=== PATIENT | female | born 1980 | race Caucasian/White ===

== ENCOUNTER 2019-11-22 20:38 | Inpatient (IN) | payer OTHER, SELFPAY ==
[2019-11-22] VITALS (9 sets, daily range): BP systolic 91–185; BP diastolic 51–112; PULSE 60–84; RESP 20–28; TEMP 36.4; O2SAT 89–100
--- NOTE | ~2019-11-22 | XR_ITS ---
EXAMINATION: XR chest ET placement EXAM DATE: 11/22/2019 21:15 INDICATION: Cardiac arrest. TECHNIQUE: Portable AP frontal chest x-ray was obtained. There is no prior study for comparison. FINDINGS: Endotracheal tube tip is 5-6 centimeters above the dc (ideal range is between 2 to 5 cm ). This could be safely advanced 1-2 cm. There is a nasogastric tube seen with tip collimated off th e study, but below the left hemidiaphragm. There is moderate-sized right-sided pneumothorax. There is also some contralateral mediastinal shift, and the right hemidiaphragm appears mildly flattened indicating that this could be a tension pneumot horax. I discussed this finding with Dr. Gates at 11/22/2019 21:17 TESTING DIRECTOR. No confluent consolidation or pleural effusion. The cardiomediastinal silhouette is prominent but mag nified on this AP technique. IMPRESSION: 1. Moderate sized right-sided tension pneumothorax. 2. Endotracheal tube could be safely advanced 1-2 cm. Reviewed, dictated and finalized at location A. ING DIRECTOR
--- NOTE | ~2019-11-22 | XR_ITS ---
XR chest 1V portable DATE: 11/24/2019 06:07 INDICATION: Decreased breath sounds, intubation. TECHNIQUE: Portable AP chest on 11/24/2019 at 0535 hours COMPARISON: 11/23/2019 portable AP chest at 0124 hours FINDINGS: ET tube in satisfactory position or 0.7 cm above dc. NG tube in stomach, proximal port approximately 4 cm distal to the diaphragmatic hiatus. Left internal jugular central venous catheter tip overlies the proximal superior vena cava. Right thoracostomy tube is present. No apparent pneumothorax. Diminished subcutaneous emphysema of th e right chest wall. Prominent band of discoid atelectasis again noted overlying the right mid lung along the minor fissur e, consistent with some persistent right upper lobe atelectasis. IMPRESSION: Right thoracostomy tube; no pneumothorax, diminished subcutaneous emphysema right chest w all Persistent prominent band of discoid atelectasis in the right midlung field, right upper lobe Reviewed, dictated and finalized at location A. AR PACKER IMPRESSION: Right thoracostomy tube; no pneumothorax, diminished subcutaneous e mphysema right chest wall Persistent prominent band of discoid atelectasis in the right midlung field, ri ght upper lobe
--- NOTE | ~2019-11-22 | XR_ITS ---
XR chest ET placement 11/25/2019 19:11 Indication: Endotracheal tube recheck Procedure: AP portable chest Comparison: Comparison to multiple prior studies sequentially, with oldest reviewed study dated 11/23. Findings: Endotracheal tube tip 8 cm above the dc near the thoracic inlet. Central line tip in th e SVC. NG tube in the stomach. Right apical chest tube position unchanged. No definite pneumothorax. No acute osseous abnormality. Left basilar atelectasis. Impression: 1: Left basilar atelectasis. 2: Endotracheal tube tip 8 cm above the dc near the thoracic inlet. Reviewed, dictated and finalized at location A. DEVELOPER Impression: 1: Left basilar atelectasis. 2: Endotracheal tube tip 8 cm above the dc near the thoracic inlet.
--- NOTE | ~2019-11-22 | XR_ITS ---
EXAMINATION: XR chest 1V portable INDICATION: Respiratory failure TECHNIQUE: Portable AP chest at 0514 hours COMPARISON: 11/26/2019 FINDINGS: The endotracheal tube ends approximately 5.7 cm above the dc. The nasogastric tube is f ollowed as far as the stomach. Its tip is beyond the inferior margin of the radiograph. A left digital marketing intern al jugular central venous catheter ends with its tip overlying the proximal superior vena cava. A rig ht chest tube is in place. A tiny right pneumothorax persists but has decreased in size. The lungs ar e free of acute opacities. There is no pleural effusion. The cardiomediastinal silhouette is normal. IMPRESSION: 1. Tiny right pneumothorax with decrease in size. Reviewed, dictated and finalized at location A. INE MECHANIC
--- NOTE | ~2019-11-22 | XR_ITS ---
XR chest 1V portable DATE: 11/28/2019 05:36 INDICATION: Mechanical ventilation TECHNIQUE: Portable AP chest on 11/28/2019 at 0511 hours COMPARISON: 11/27/2019 portable AP chest at 0514 hours FINDINGS: ET tube tip is 6.2 cm above dc; ideal range is 2-5 cm. NG tube in stomach. Left internal jugular central venous catheter tip overlies the left brachiocephalic vein near the sup erior vena cava. Right thoracostomy tube. No pneumothorax is evident. There is mild infiltrate/atelectasis in the left lower lobe with mild elevation of the left leaf of t he diaphragm. IMPRESSION: ET tube 6.2 cm above dc; ideal range is 2.5 cm Right thoracostomy tube; no apparent pneumothorax Left lower lobe infiltrate/atelectasis Reviewed, dictated and finalized at location A. RIALS PLANNER
--- NOTE | ~2019-11-22 | CT_ITS ---
EXAMINATION: CT brain wo con EXAM DATE: 11/22/2019 22:13 INDICATION: Cardiac arrest. Bone cancer. TECHNIQUE: Spiral CT of the head was performed without contrast. Axial, coronal and sagittal images were reviewed. The dose-length product (DLP) for this examination was 681.00 mGy-cm. The exposure w as tailored according to patient size, and iterative reconstruction (ASIR) was used as additional dos e reduction technique. There is no prior study for comparison. FINDINGS: Beam hardening and motion artifact; patient was scanned twice. There is no acute intraparen chymal hemorrhage. No evidence of intraparenchymal brain mass lesion. No evidence of acute infarcti on. There is no mass effect or midline shift. The ventricles are normal in size. There are no extr a-axial collections. There are no acute calvarial fractures. The orbits are unremarkable. Soft tiss ue is unremarkable. Mild ethmoid opacity and small left maxillary mucous retention cyst. IMPRESSION: Limited exam. No acute hemorrhage. If global anoxic injury is a clinical concern, conside r follow-up exam in 6-12 hours. Reviewed, dictated and finalized at location A. CE AUTOMATION CLERK IMPRESSION: Limited exam. No acute hemorrhage. If global anoxic injury is a cli nical concern, consider follow-up exam in 6-12 hours.
--- NOTE | ~2019-11-22 | XR_ITS ---
EXAMINATION: XR chest 1V portable INDICATION: Pneumothorax, decreased breath sounds TECHNIQUE: Portable AP chest at 0537 hours COMPARISON: 11/24/2019 FINDINGS: The endotracheal tube ends approximately 5.2 cm above the dc. The nasogastric tube is f ollowed as far as the stomach. Its tip is beyond the inferior margin of the radiograph. Airspace opac ities of the right midlung zone have nearly completely resolved. A right-sided chest tube is in place . There is a tiny apical pneumothorax. There is a small amount of gas in the right chest wall. The ca rdiomediastinal silhouette is normal. No pleural effusion is identified. IMPRESSION: 1. Near complete resolution of airspace opacities in the right midlung zone, consistent with atelecta sis. 2. Right chest tube in place tiny apical pneumothorax. Reviewed, dictated and finalized at location A. ARY GRADE TEACHER IMPRESSION: 1. Near complete resolution of airspace opacities in the right midlung zone, co nsistent with atelectasis. 2. Right chest tube in place tiny apical pneumothorax.
--- NOTE | ~2019-11-22 | XR_ITS ---
XR chest 1V portable DATE: 11/23/2019 01:26 INDICATION: Decreased breath sounds TECHNIQUE: Portable AP chest on 11/23/2019 at 0124 hours COMPARISON: Portable AP chest on 11/23/2019 at 0010 hours FINDINGS: ET tube in satisfactory position 3 cm above dc. NG tube in stomach. Left internal jugul ar central venous catheter tip overlies the proximal superior vena cava. Again noted is right upper lobe prominent band of discoid atelectasis along the minor fissure, with m ild right upper lobe infiltrate and atelectasis. There is subcutaneous emphysema along the right ches t wall. No pneumothorax is evident. IMPRESSION: No significant change since 0010 hours Reviewed, dictated and finalized at location A. IRONER
--- NOTE | ~2019-11-22 | US_ITS ---
US venous doppler [facility] DATE: 11/23/2019 09:47 INDICATION: Right [id number] amputation. Cardiac arrest. TECHNIQUE: Real-time and color flow imaging and Doppler analysis of the veins of the lower extremitie s COMPARISON: None FINDINGS: The greater saphenous veins are patent. There is spontaneous and phasic flow and normal aug mentation and color flow signal and normal compression of the right common femoral and femoral veins and the deep veins throughout the left lower extremity. IMPRESSION: Right above-knee amputation No evidence of deep venous thrombosis of the lower extremities Reviewed, dictated and finalized at Location A. Reviewed, dictated and finalized at location A. AROO
--- NOTE | ~2019-11-22 | XR_ITS ---
XR chest port-a-cath/central DATE: 11/23/2019 00:15 INDICATION: Decreased breath sounds TECHNIQUE: Portable AP chest on 11/23/2019 at 0010 hours COMPARISON: Portable AP chest on 11/22/2019 at 2151 hours FINDINGS: There is a prominent band of discoid atelectasis at the upper aspect of the minor fissure, with mild right upper lobe infiltrate and loss of volume. The remaining lung bejarano are essentially c lear. Right thoracostomy tube. There is subcutaneous emphysema along the right chest wall. No pneumothorax is evident. No pleural effusion. Heart size appears normal. There is mild aortic unfolding. ET tube in satisfactory position approximately 4.8 cm above dc. NG tube in stomach with the proxi mal port approximately 1.5 cm distal to the diaphragmatic hiatus. Left internal jugular central venous catheter tip overlies the very proximal superior vena cava. IMPRESSION: Right thoracostomy tube; subcutaneous emphysema right chest wall, no apparent pneumothora x Mild right upper lobe volume loss, atelectasis, infiltrate, mildly improved since 11/22/2019 Reviewed, dictated and finalized at Location A. Reviewed, dictated and finalized at location A. BAG MACHINE TENDER IMPRESSION: Right thoracostomy tube; subcutaneous emphysema right chest wall, n o apparent pneumothorax Mild right upper lobe volume loss, atelectasis, infiltrate, mildly improved sin ce 11/22/2019
--- NOTE | ~2019-11-22 | XR_ITS ---
XR abdomen NG/feed tube rechec INDICATION: Evaluate NG tube position. TECHNIQUE: Limited KUB perform for evaluating NG tube . COMPARISON: 11/22/2019 FINDINGS: NG tube tip in the stomach, side port near the GE junction. Visualized bowel gas pattern i s unremarkable. IMPRESSION: 1: NG tube tip in the stomach, side port near the GE junction. Reviewed, dictated and finalized at location A. ITIONING ROOM WORKER
--- NOTE | ~2019-11-22 | CT_ITS ---
EXAMINATION: CT brain wo con DATE: 11/25/2019 09:13 INDICATION: Anoxic brain injury. TECHNIQUE: Computed tomography (CT) of the head was performed without intravenous contrast. The mA wa s adjusted according to patient size. Iterative reconstruction technique was employed. The dose-lengt h product was 681.00 mGy-cm. COMPARISON: Head CT 11/22/2019 FINDINGS: There is mild motion artifact. There is no intracranial hemorrhage or abnormal intracranial mass lesion. The bilateral basal ganglia are hypodense. The ventricles are normal in size. There is mucosal thickening in the paranasal sinuses. The orbits are normal. The mastoid air cells are hypopla stic. There is a right mastoid effusion. IMPRESSION: 1. Hypodense bilateral basal ganglia suspicious for anoxic brain injury. Reviewed, dictated and finalized at location A. T OFFICE SPECIALIST
--- NOTE | ~2019-11-22 | XR_ITS ---
EXAMINATION: XR chest ET placement INDICATION: Intubation TECHNIQUE: Portable AP chest at 0235 hours COMPARISON: 11/25/2019 FINDINGS: The endotracheal tube ends approximately 4.5 cm above the dc. The nasogastric tube is f ollowed as far as the stomach. Its tip is beyond the inferior margin of the radiograph. A right inter nal jugular central venous catheter ends with its tip at the proximal superior vena cava. A right yelena st tube is in position. There is a small right pneumothorax. The lungs are clear. The cardiomediastin al silhouette is normal. IMPRESSION: 1. Endotracheal tube approximately 4.5 cm above the dc. 2. Right chest tube in place with small right pneumothorax. Reviewed, dictated and finalized at location A. OMA DENTAL ASSISTANT
--- NOTE | ~2019-11-22 | XR_ITS ---
EXAMINATION: XR chest-chest tube insert/pos EXAM DATE: 11/22/2019 21:56 INDICATION: Right-sided chest tube insertion. Cardiac arrest. TECHNIQUE: Portable AP frontal chest x-ray was obtained. Comparison is made to prior examination from 11/22/2019. FINDINGS: Endotracheal tube tip is 3-4 centimeters above the dc (ideal range is between 2 to 5 cm ). Feeding tube is in position. There is a right-sided chest tube with tip at the right lung apex, s ignificant interval decrease in size of the right-sided pneumothorax compared to prior study, and als o more normal position of the right hemidiaphragm and contralateral mediastinal shift. Left lung is c lear. There is some right upper lobe atelectasis. IMPRESSION: 1. Tubes in position. 2. Small to moderate right pneumothorax with improvement. 3. Right upper lobe atelectasis. Reviewed, dictated and finalized at location A. RTER
--- NOTE | ~2019-11-22 | XR_ITS ---
EXAMINATION: XR abdomen NG/feed tube insert EXAM DATE: 11/22/2019 21:56 INDICATION: Orogastric tube placement. TECHNIQUE: Frontal projection(s) of the abdomen for interpretation. There is no prior study for willi page. FINDINGS: Feeding tube is in position. Right-sided pneumothorax with interval decrease in size incom pletely imaged. Right hemidiaphragm appears to be equal to the contralateral side on this exam. Upper abdominal bowel gas pattern is unremarkable. IMPRESSION: Feeding tube in position. Reviewed, dictated and finalized at location A. C COMPOSER IMPRESSION: Feeding tube in position.
--- NOTE | 2019-11-22 20:43 | ED.CPR ---
HPI - CPR General Chief Complaint: Cardiac Arrest/CPR Stated Complaint: UNRESPONISIVE Time Seen by Provider: 11/22/19 20:43 Source: EMS Mode of arrival: EMS Limitations: clinical condition History of Present Illness HPI narrative: The pt is a 38 y/o female who presents to the ED, via EMS, c/o cardiac arrest. 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 Upon arrival to the scene, pt was found to be unresponsive. They noticed the pt had dilated pupils, and they administered Narcan without any change in state. EMS then found pt was in Vfib. Pt received 3 shocks that dispensed 200 joules with no change in rhythm. EMS states that they administered 3 rounds of Epinephrine, four doses of Narcan, as well as Amiodarone and 2 rounds of magnesium. Pt arrived with incubation and PHILLIP chest compression present. Pt has right BKA present. EMS also notes that the pt's emergency contact relayed that she is supposed to wear a LifeVest defibrillator. HPI is limited due to the pt's clinical condition. complaint: other (Cardiac arrest) Place: other (Outside apartment complex) Shock advised: Yes Number of shocks delivered: 3 Initial findings in the field: unresponsive and VTACH/VFIB Associated symptoms: other (Unobtainable) Treatments prior to arrival: intubation, chest compressions, defibrillated shocks # (3), epinephrine mgs #, amiodarone, magnesium and other (Narcan) Review of Systems Review of Systems: ROS unobtainable: other (Due to clinical condition) [facility] Past Medical History Medical History (Updated 11/23/19 @ 00:58 by Gracy Myers DO) Arrhythmia Unknown type; pt is supposed to wear LifeVest defibrillator. 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 Comments PMHx is limited due to the pt's clinical condition. Exam Const: General: ill appearing Nutritional Appearance: average body habitus Orientation/consciousness: patient obtunded Limitations: other limitations (patient in cardiac arrest, unresponsive) HENMT: Head: normocephalic and atraumatic Mouth: Yes Normal oral and palatal mucosa present and Yes lip normal Eyes: Sclera: sclerae normal Pupils: Pupils not reactive Chest: Chest palpation & inspection: normal inspection of the chest Resp: Auscultation: diminished lung sounds on the right Other: PAtient intubated being bagged Cardio: Other: able to obtain femoral pulse on ROSC, ; on rOSC patient with normal rate, and rhythm GI: Auscultation: Hypoactive bowel sounds present Urinary Catheter: Urinary Catheter: patent and draining Skin: General skin exam: normal color Rashes: no rashes Neuro: General: patient obtunded and Unable to assess gait Extrem: General: no pedal edema Other: right AKA with prosthetic Course Reevaluation(s) Reevaluation #1: Patient appears to be responsive to pain. On repeat xray for CVL placement , chest tube still in place but may have come out. I reassessed to make sure tube in further and secured. PAtient still with 100% oxygen saturation. Date: 11/23/19 Time: 00:30 Consultations Consultation #1: Discussed case with Dr. Cortes, states he will review her chart and call back. Date: 11/22/19 Time: 20:58 Consultation #2: Discussed case with Dr. Cortes, states he is discussing patient history with her electrical checkout mechanic. Notes that pt likely has cardiomyopathy. Date: 11/22/19 Time: 21:53 Consultation #3: Discussed case with Dr. Cortes,who spoke with the pt's electrical checkout mechanic at [facility]. States pt had a clean catheterization in 2018 with an ejection fraction of 20%. States pt had no STEMI, and that she did not follow up
--- NOTE | 2019-11-22 20:53 | ECG_ITS ---
Measurements Intervals [place] Rate: 61 P: NV: 0 QRS: 252 QRSD: 170 T: 0 QT: 384 QTc: 389 Interpretive Statements JUNCTIONAL RHYTHM ATRIAL PREMATURE COMPLEX EXTREME RIGHT AXIS DEVIATION RIGHT BUNDLE BRANCH BLOCK SEPTAL ST ELEVATION MYOCARDIAL INFARCT- ACUTE ABNORMAL ECG Electronically Signed On 11-23-2019 7:55:40 PRODUCTION FLOATER by Karsten Flores D.O.
[2019-11-22] MEDS: LACTATED RINGERS 1,000 ML 999 ML IV CONT (21:03)
[2019-11-22 21:10] LABS: Basophils Absolute Auto 0.1 K/mm3 (0.0-0.1); Basophils Percent Auto 0.9 % (0.2-1.2); Eosinophils Absolute Auto 0.2 K/mm3 (0-0.3); Hemoglobin 13.6 g/dL (12.0-15.0); Immature Granulocyte Absolute 0.45 K/mm3 (0.00-0.031); Immature Granulocyte Percent A 5.9 % (0-0.5); Lymphocytes Absolute Auto 5.19 K/mm3 (0.9-3.2); Lymphocytes Percent Auto 68.6 % (18.3-44.2); Mean Corpuscular HGB Conc 29.6 g/dl (32-36); Mean Corpuscular Hemoglobin 28.1 pg (26-34); Mean Platelet Volume 10.7 fl (7.4-10.4); Monocytes Absolute Auto 0.4 K/mm3 (0.1-0.6); Neutrophils Absolute Auto 1.3 K/mm3 (1.3-6.7); Neutrophils Percent Auto 16.6 % (45.5-73.1); Nucleated Red Blood Cells Perc 0.4 % (0.0-0.2); Platelet Count Result 265 k/mm3 (150-375); Red Blood Count 4.84 M/mm3 (4.2-5.4); Red Cell Distribution Width 12.7 % (11.5-14.5); White Blood Count 7.6 K/mm3 (4.5-10.0)
--- NOTE | 2019-11-22 21:13 | ECG_ITS ---
Measurements Intervals [place] Rate: 57 P: CO: 0 QRS: 263 QRSD: 173 T: 74 QT: 427 QTc: 419 Interpretive Statements SINUS OR ECTOPIC ATRIAL BRADYCARDIA RIGHT BUNDLE BRANCH BLOCK LEFT POSTERIOR FASCICULAR BLOCK CANNOT RULE OUT SEPTAL INFARCT, AGE INDETERMINATE BASELINE WANDER- I, II, III, AVR, AVL, V2-V6 ABNORMAL ECG Electronically Signed On 11-25-2019 12:52:37 DIE MOUNTER by Karsten Flores D.O.
[2019-11-22 21:22] LABS: INR 1.1; Partial Thromboplastin Time 26.5 SECONDS (22.3-36.8); Prothrombin Time 13.9 Seconds (11.1-14.7)
[2019-11-22 21:35] LABS: NT Pro B Type Natriuretic Pept 1680 PG/ML (5-100); Troponin I 0.022 ng/mL (0.000-0.034)
--- NOTE | 2019-11-22 21:36 | PC.NURSE ---
Addendum entered by Sona Rene RN 11/22/19 23:04: THE BELOW NOTE WAS ENTERED PER Sofia MANLEY RN. Original Note: SPOKE WITH PT SISTER VEENA WALDRON- PT SISTER WHO IS CURRENTLY IN THE ED WAITING ROOM SHE STATES SHE WAS CONTACTED BY THE PATIENTS CHILDRENS FAMILY MEMBER THAT THE PATIENT WAS HERE. SHE RECENTLY SPOKE WITH THE PATIENT WED & TODAY AND STATED THE PATIENT HAD NO RECENT COMPLAINTS OR ILLNESS'S SHE WAS AWARE OF. SHE REPORTS PATIENT HAS PMH OF BONE CANCER AT THE AGE OF 16. , HX OF LEG AMPUTATION, TWINS DELIVERED APPROX 3 YRS AGO & AFTER THAT SHE HAD HEART COMPLICATIONS AND A WEAK HEART . SHE REPORTS THE PATIENT HAD TO WEAR A MONITOR OF WHICH SHE IS UNSURE WHAT IT WAS FOR .
[2019-11-22 21:41] LABS: Alanine Aminotransferase 95 U/L (4-35); Albumin Level 4.1 g/dL (3.5-5.1); Alkaline Phosphatase 49 U/L (38-126); Aspartate Amino Transferase 107 U/L (14-36); Bilirubin,Total 0.6 mg/dL (0.2-1.3); Blood Urea Nitrogen 5 mg/dL (7-17); Calcium 8.7 mg/dL (8.4-10.2); Carbon Dioxide 17 mmol/L (22-30); Chloride 96 mmol/L (98-107); Estimated Glomerular Filt Rate > 60; Glucose 335 mg/dL (65-105); Magnesium 4.5 mg/dL (1.6-2.3); Potassium 2.3 mmol/L (3.4-5.0); Sodium 139 mmol/L (137-145)
[2019-11-22 21:44] LABS: Alveolar/Arterial O2 Gradient 395.8 mmHg; Base Excess ABG -14.3 mEq/l (+/-2.0); Carboxyhemoglobin 2.2 % THb (0-2.0); HCO3 ABG 13.1 mEq/l (22.0-26.0); Methemoglobin ABG 0.3 %THb (0-1.5); Oxygen Content ABG 17.3 %vol (16.0-22.0); Oxygen Saturation ABG 99.5 % (95.0-100.0); Oxyhemoglobin 96.1 % THb (90.0-100.0); PCO2 ABG 36.1 mmHg (35.0-45.0); PO2 ABG 281.1 mmHg (80.0-100.0); Total Hemoglobin 12.3 g/dL (12.0-18.0); pH ABG 7.178 (7.350-7.450)
[2019-11-22 21:45] LABS: Device AMBU BAG; Fractional Inspired Oxygen 100 %; Modified Allen's Test Pass; PO2 FiO2 Ratio Arterial Blood 2.81 %; Reduced Hemoglobin 1.4 %THb (0-5.0); Site Drawn RIGHT RADIAL
[2019-11-22 22:26] LABS: Amphetamine Screen Urine Negative (Negative); Barbiturate Screen Urine Negative (Negative); Benzodiazepines Screen Urine Negative (Negative); Cannabinoid Screen Urine Negative (Negative); Cocaine Screen Urine Negative (Negative); Methadone Screen Urine Negative (Negative); Opiate Screen Urine Negative (Negative); Phencyclidine Screen Urine Negative (Negative)
[2019-11-22] MEDS: AMIODARONE 360 MG/D5W 200 ML 360 MG/200 ML BAG 33.3 MG IV CONT (22:40)
[2019-11-22 23:08] LABS: Ammonia 57 umol/L (9-30)
[2019-11-22] MEDS: MIDAZOLAM HCL 2 MG/2 ML VIAL IV PUSH (23:30)
[2019-11-23] VITALS (41 sets, daily range): BP systolic 87–196; BP diastolic 55–136; PULSE 49–116; RESP 14–32; TEMP 31.9–38.3; O2SAT 96–100; BMI 30.8
[2019-11-23] MEDS: PROPOFOL IV EMULSION 100 ML 3.1 MG IV CONT (00:20)
--- NOTE | 2019-11-23 00:56 | PM.IMHP ---
H&P: HPI History of Present Illness Chief complaint: Cardiac arrest Narrative: Sabi Mena is a 38 year old female with a past medical history of cardiac arrhythmia, cardiomyopathy, hypertension and hyperlipidemia who presented to the ER via EMS after being found down and cardiac arrest. 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 EMS reported that the patient was found unresponsive with dilated pupils. They administered Narcan without any change in her stay. The patient was then noted to be in ventricular fibrillation and received 3 shocks at 200 joules. EMS administered 3 rounds of epinephrine, 2 rounds of magnesium, amiodarone and 4 doses of Narcan. The patient arrived with a Baldomero chest compression device present. Patient had return of circulation in the ER. She was intubated and had a right chest tube placed due to a right tension pneumothorax. A left IJ with was placed by ER staff. Patient was noted to be hypokalemic and received 40 mEq potassium chloride IV. When the patient arrived to the ICU she had a high respiratory rate and was difficult to ventilate. Respiratory therapy was unable to pass the rescue catheterization. But the ET tube obstruction cleared with normal saline and aggressive bagging. Repeat attempts at suctioning airway clear the obstruction and the patient was easier to ventilate. A stat chest x-ray was ordered to ensure that the patient's chest tube was stable as there was some leaking given the patient's tachypnea and discomfort. Patient's sedation was increased and overall the patient's condition improved. According to the patient's sister the patient had an hospitalization in November of 2017 with an ejection fraction of 20%. She had a cardiac catheterization at that time which demonstrated normal coronaries. It was thought that the patient may have a cardiomyopathy. The patient wore a LifeVest for some time after her hospitalization in 2018. The patient told her family members that she did not require the life vest anymore after a follow-up appointment. But the family thinks that the patient may not have been completely forthcoming in that statement.The family states that the patient has been up beat and in good spirits. They report that she does tend to get short of breath with ambulation. They attribute this to the weight of her prosthetic. They report that her right lower extremity is always swollen. 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 Review of Systems Review of Systems: ROS unobtainable: unobtainable due to mental condition [facility] Past Medical History Medical History (Updated 11/23/19 @ 03:08 by Gracy Myers DO) Arrhythmia Unknown type; pt is supposed to wear LifeVest defibrillator. Dyslipidemia Essential hypertension Surgical History Surgical History (Updated 11/23/19 @ 02:36 by Gracy Myers DO) History of above-knee amputation of right lower extremity Due to bone cancer at the age of 16 Family History Family History (Updated 11/23/19 @ 02:39 by Gracy Myers DO) Father , Paternal family history unknown No problems noted. Mother No known health problems Grandparent Ovarian cancer Cervical cancer Social History Social History (Updated 11/23/19 @ 02:58 by Gracy Myers DO) Social History: The patient has smoked on and off since she was 14 years old. For the most part she has smoked a pack of cigarettes per day for approximately 19 years. She had quit smoking for 2 and 3 years at a time on 2 other occasions. She used to smoke marijuana but the family does not think she has smoked marijuana recently. She only drinks alcohol on occasion and in moderation. She is engaged to be . She has 3 children; the oldest is 18 the younger children are 3
--- NOTE | 2019-11-23 01:49 | WPDPROCEDUR ---
Procedures Arterial Line: Arterial Line Date: 11/23/19 Arterial Line Time: 01:35 Discussed with the patient/family/POA, the non-emergent placement of an arterial catheter, including its clinical necessity/indication and associated potential risks and complications: Yes Patient/family/POA and/or understand(s) and acknowledge(s) the need to proceed with the arterial catheter insertion as an important element of the patient's clinical management: Yes Perfomed Emergently - Given emergent patient conditions, temporal constraints may have precluded informed consent: No A pre-procedural Time-Out was completed immediately before starting the procedure and confirmed: Patient Identification, Site, Procedure, Patient Position and the Availability of Requisite Equipment: Yes 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
--- NOTE | 2019-11-23 01:52 | ECHO_ITS ---
Patient Info Name: Sabi Mena Age: 38 years : 1980 Gender: Female Ht: 68 in Wt: 195 lbs BSA: 2.08 m2 HR: 55 bpm BP: 139 / 76 mmHg Heart Rhythm: Sinus Rhythm Technical Quality: Good Exam Date: 11/23/2019 12:43 PM Exam Location: [facility] Pulmonary Patient Status: Inpatient Admit Date: 11/22/2019 Staff Ordering Physician: Gracy Myers DO Water Meter Installer: Merissa Nuñez RDCS Attending Provider: Adrián Lane MD Referring Physician: Louis RODRIGUEZ; Exam Type: CA echo doppler color flow Study Info Complete two-dimensional, color flow and Doppler transthoracic echocardiogram is performed. Summary 1. Global hypokinesis of the left ventricle. 2. The left ventricular diastolic function is grade I diastolic dysfunction. 3. There is mildly increased left ventricular wall thickness. 4. Left ventricular systolic function is severely reduced, estimated at 20-25%. 5. Left ventricular chamber dimension is severely enlarged. 6. Left atrial chamber dimension is mildly enlarged. 7. There is mild mitral valve regurgitation. 8. There is mild tricuspid valve regurgitation. 9. There is mild pulmonic regurgitation. Left Ventricle Left ventricular chamber dimension is severely enlarged. Left ventricular systolic function is severely reduced, estimated at 20-25%. There is mildly increased left ventricular wall thickness. The left ventricular diastolic function is grade I diastolic dysfunction. Global hypokinesis of the left ventricle. Right Ventricle Right ventricular chamber dimension is normal. Right ventricular systolic function is normal. Left Atria Left atrial chamber dimension is mildly enlarged. Right Atria Right atrial chamber dimension is normal. Atrial Septum Intact interatrial septum visualized by color flow imaging. Aortic Valve The aortic valve is trileaflet. There is mild aortic valve sclerosis. There is no aortic valve stenosis. There is trace aortic valve regurgitation. Pulmonic Valve The pulmonic valve is normal. There is no pulmonic valve stenosis. There is mild pulmonic regurgitation. Mitral Valve The mitral valve has normal leaflets. There is no mitral valve stenosis. There is mild mitral valve regurgitation. Tricuspid Valve The tricuspid valve leaflets are normal. There is no significant tricuspid valve stenosis. There is mild tricuspid valve regurgitation. Pericardium/Pleural The pericardium appears normal. There is no pericardial effusion. Aorta The aortic root size at the sinus of Valsalva is normal. Left Ventricular Outflow Tract Name Value Normal LVOT 2D LVOT Diameter 2.4 cm LVOT Doppler LVOT Peak Velocity 69 cm/s LVOT Peak Gradient 2 mmHg LVOT Mean Gradient 1 mmHg LVOT VTI 15 cm LVOT Stroke Volume 65 ml LVOT CO 3.3 l/min LVOT CI 1.6 l/min/m2 Pulmonic Valve
[2019-11-23 02:35] LABS: Basophils Percent Auto 0.2 % (0.2-1.2); Eosinophils Percent Auto 0.1 % (0-4.4); Hematocrit 41.4 % (37.0-47.0); Hemoglobin 13.5 g/dL (12.0-15.0); Immature Granulocyte Absolute 0.15 K/mm3 (0.00-0.031); Immature Granulocyte Percent A 0.7 % (0-0.5); Lymphocytes Absolute Auto 0.61 K/mm3 (0.9-3.2); Lymphocytes Percent Auto 2.8 % (18.3-44.2); Mean Corpuscular HGB Conc 32.6 g/dl (32-36); Mean Corpuscular Hemoglobin 28.7 pg (26-34); Mean Corpuscular Volume 87.9 fl (80-100); Mean Platelet Volume 9.9 fl (7.4-10.4); Monocytes Percent Auto 4.6 % (2.6-8.5); Neutrophils Absolute Auto 19.7 K/mm3 (1.3-6.7); Neutrophils Percent Auto 91.6 % (45.5-73.1); Platelet Count Result 254 k/mm3 (150-375); Red Blood Count 4.71 M/mm3 (4.2-5.4); Red Cell Distribution Width 12.8 % (11.5-14.5); White Blood Count 21.5 K/mm3 (4.5-10.0)
[2019-11-23 02:47] LABS: Creatine Kinase 1479 U/L (30-135); Magnesium 2.3 mg/dL (1.6-2.3)
[2019-11-23 02:50] LABS: Alanine Aminotransferase 188 U/L (4-35); Albumin Level 4.2 g/dL (3.5-5.1); Alkaline Phosphatase 64 U/L (38-126); Aspartate Amino Transferase 355 U/L (14-36); Blood Urea Nitrogen 11 mg/dL (7-17); Calcium 7.8 mg/dL (8.4-10.2); Carbon Dioxide 25 mmol/L (22-30); Chloride 102 mmol/L (98-107); Estimated Glomerular Filt Rate > 60; Glucose 166 mg/dL (65-105); Potassium 3.4 mmol/L (3.4-5.0); Sodium 137 mmol/L (137-145)
[2019-11-23] MEDS: AMIODARONE 360 MG/D5W 200 ML 360 MG/200 ML BAG 33.3 MG IV CONT ×3 (03:00→15:12)
[2019-11-23 03:11] LABS: Alveolar/Arterial O2 Gradient 86.4 mmHg; Base Excess ABG -3.9 mEq/l (+/-2.0); Carboxyhemoglobin 0.1 % THb (0-2.0); Fractional Inspired Oxygen 50 %; HCO3 ABG 21.2 mEq/l (22.0-26.0); Methemoglobin ABG 0.5 %THb (0-1.5); Oxygen Saturation ABG 99.4 % (95.0-100.0); PCO2 ABG 38.9 mmHg (35.0-45.0); PO2 FiO2 Ratio Arterial Blood 4.36 %; Reduced Hemoglobin 1.4 %THb (0-5.0); Total Hemoglobin 14.2 g/dL (12.0-18.0); pH ABG 7.354 (7.350-7.450)
[2019-11-23 03:12] LABS: Arterial Blood Gas PEEP 5 cmH2O; Arterial Blood Gas Tidal Volume 400 ml; Arterial Blood Gas Vent Mode CMV; Arterial Blood Gas Ventilator rate 14 /MIN; Device VENTILATOR; Site Drawn ARTLINE
[2019-11-23] MEDS: PROPOFOL IV EMULSION 100 ML 21.5 MG IV CONT (04:50)
[2019-11-23 05:26] LABS: Hematocrit 42.3 % (37.0-47.0); Hemoglobin 13.8 g/dL (12.0-15.0); Mean Corpuscular HGB Conc 32.6 g/dl (32-36); Mean Corpuscular Hemoglobin 28.5 pg (26-34); Mean Corpuscular Volume 87.4 fl (80-100); Mean Platelet Volume 9.8 fl (7.4-10.4); Platelet Count Result 275 k/mm3 (150-375); Red Blood Count 4.84 M/mm3 (4.2-5.4); Red Cell Distribution Width 12.7 % (11.5-14.5); White Blood Count 22.9 K/mm3 (4.5-10.0)
[2019-11-23 05:37] LABS: Lactic Acid 1.7 mmol/L (0.7-2.1)
[2019-11-23 05:38] LABS: Prothrombin Time 13.2 Seconds (11.1-14.7)
[2019-11-23 05:39] LABS: Partial Thromboplastin Time 27.4 SECONDS (22.3-36.8)
[2019-11-23 05:41] LABS: Phosphorus 2.4 mg/dL (2.5-4.5)
[2019-11-23 05:48] LABS: Creatine Kinase 2463 U/L (30-135)
--- NOTE | 2019-11-23 05:56 | ADMGEN ---
This patient, Sabi Mena, was admitted to Intensive Care Unit-7. Patient/family oriented to hospital policies and general routines including ID bracelet, bed and alarms, visiting hours, pain management, procedures, bathroom and other care routines, personal items, smoking policy, room service/diet, and visiting hours. Valuables list has been completed. Information on how to activate the Rapid Response Team has been discussed. Patient/Family are encouraged to report perceived risks to care and to ask questions if they do not understand what they are told or what they should do.
[2019-11-23 06:29] LABS: Hemoglobin A1C 5.2 % (<5.7)
[2019-11-23] MEDS: LACTATED RINGERS 1,000 ML 125 ML IV CONT (06:59)
[2019-11-23 07:09] LABS: Glucose Point of Care 91 (65-105)
[2019-11-23 07:09] LABS: Glucose Point of Care 104 (65-105)
[2019-11-23 07:50] LABS: Glucose Point of Care 121 (65-105)
[2019-11-23] MEDS: FAMOTIDINE 20 MG/2 ML VIAL IV PUSH ×2 (08:14→20:32)
[2019-11-23] MEDS: PROPOFOL IV EMULSION 100 ML 30.8 MG IV CONT ×5 (08:40→23:51)
[2019-11-23 09:18] LABS: Glucose Point of Care 105 (65-105)
[2019-11-23] MEDS: HEPARIN SODIUM 5,000 UNITS/ML VIAL 5000 UNITS SUB-Q ×2 (09:31→16:32)
[2019-11-23] MEDS: CISATRACURIUM BESYLATE 20 MG/10 ML VIAL 15 MG IV PUSH (09:55)
--- NOTE | 2019-11-23 10:00 | ECG_ITS ---
Measurements Intervals [place] Rate: 73 P: 28 CT: 151 QRS: -50 QRSD: 114 T: 259 QT: 418 QTc: 462 Interpretive Statements SINUS RHYTHM LEFT ANTERIOR FASCICULAR BLOCK T WAVE ABNORMALITY IN ANTEROLATERAL LEADS- CONSIDER ISCHEMIA BASELINE ARTIFACT- II, III, V1-V3 ABNORMAL ECG Electronically Signed On 11-23-2019 11:49:45 RUG CLEANER HAND by Karsten Flores D.O.
[2019-11-23 10:36] LABS: Alveolar/Arterial O2 Gradient 70.7 mmHg; Base Excess ABG -2.9 mEq/l (+/-2.0); Device VENTILATOR; Fractional Inspired Oxygen 40 %; HCO3 ABG 22.3 mEq/l (22.0-26.0); Oxygen Content ABG 19.5 %vol (16.0-22.0); Oxygen Saturation ABG 99.1 % (95.0-100.0); Oxyhemoglobin 97.6 % THb (90.0-100.0); PCO2 ABG 40.4 mmHg (35.0-45.0); Site Drawn ARTLINE
[2019-11-23 10:37] LABS: Arterial Blood Gas PEEP 5 cmH2O; Arterial Blood Gas Tidal Volume 400 ml; Arterial Blood Gas Vent Mode CMV; Arterial Blood Gas Ventilator rate 14 /MIN
[2019-11-23 10:54] LABS: Glucose Point of Care 106 (65-105)
--- NOTE | 2019-11-23 11:08 | PM.CNCAR ---
Assessment and Plan Assessment and plan (1) Cardiomyopathy: Qualifiers: Cardiomyopathy type: unspecified Qualified Code(s): I42.9 - Cardiomyopathy, unspecified Code(s): I42.9 - Cardiomyopathy, unspecified Status: Acute Assessment and Plan: Known severe cardiomyopathy. Previous cardiac catheterization reportedly showed no coronary disease. 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 Will request records from [place] regarding previous workup and follow-up. 2D echocardiogram Doppler be ordered. (2) Cardiac arrest: Code(s): I46.9 - Cardiac arrest, cause unspecified Status: Acute Assessment and Plan: Currently undergoing cooling protocol. On amiodarone drip. If meaningful neurological recovery, patient will need ICD if she is agreeable for secondary prevention (3) Elevated LFTs: Code(s): R94.5 - Abnormal results of liver function studies Status: Acute Assessment and Plan: Related to shock liver (4) Hypokalemia: Code(s): E87.6 - Hypokalemia Status: Acute Assessment and Plan: KCl 40 mg IV x1 keep potassium greater than 4. (5) Elevated troponin: Code(s): R79.89 - Other specified abnormal findings of blood chemistry Status: Acute Assessment and Plan: Unlikely related to acute plaque rupture. More likely related to prolonged arrest. Will repeat troponin now and trend till peak. (6) Pneumothorax: Code(s): J93.9 - Pneumothorax, unspecified Status: Acute Assessment and Plan: Management per manager business History of Present Illness History of Present Illness Consult date/time: 11/23/19 11:08 Requesting physician: Mariela Snow MD Consult reason: Other (Cardiac arrest) Reason For Visit: Cardiac arrest Narrative: Date of service: 11/23/2019 History: Patient is a 38-year-old female who has a past history of cardiomyopathy, hypertension hyperlipidemia. She also has a history of osteosarcoma status post chemotherapy and right AKA. 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 It is uncertain if bystander CPR was initiated. EMS was called though an reportedly her pupils were dilated and she was unresponsive. She was given Narcan without any benefit. She was found to be in ventricular fibrillation and was shocked 3 times as well as receiving multiple rounds of epinephrine, magnesium, amiodarone and Narcan. No yazidi of circulating rhythm was obtained at that time. External chest compression device was put on and she to came to the emergency department. She was intubated and chest x-ray showed a right-sided tension pneumothorax and she subsequently underwent a chest tube placement. In the emergency department she did have return of normal circulation. EKG initially showed a junctional rhythm with septal ST elevations and anterolateral and inferior ST segment depressions. Dr. Cortes was called. Upon further investigation the patient did have a known history of severe cardiomyopathy dating back to November of 2017 whenever she is found have an ejection fraction of 20%. Cardiac catheterization was performed at that time showing normal coronary arteries. It is thought that the patient was suffering from cardiomyopathy. Reportedly she did wear a life vest for a period of time but was no longer wearing it. It is uncertain if she is still seeing any line production cook or if her ejection fraction improved. Is also uncertain if she is taking any medications at this point. Reportedly there is no recent episodes are complaints of chest pain, unusual shortness of breath, syncope or presyncope. No paroxysmal nocturnal dyspnea orthopnea. She is currently undergoing cooling protocol. She is currently paralyzed and intubated. Review of Systems Review of Systems: All systems reviewed & are unremarkable except as not
--- NOTE | 2019-11-23 11:52 | WPDCNINT ---
Assessment and Plan Assessment and plan (1) Pneumothorax: Code(s): J93.9 - Pneumothorax, unspecified Status: Acute Assessment and Plan: chest tube has been placed in the emergency department. Still with huge air leak. Unclear if it is secondary to pressure trauma during intubation and initial mechanical ventilation on route to emergency department or if it is a primary event causing all the rest of the complication. Continue chest tube and usual care of the chest tube until she remained intubated. (2) Elevated troponin: Code(s): R79.89 - Other specified abnormal findings of blood chemistry Status: Acute Assessment and Plan: Acute myocardial event versus demand ischemia. at peak. Continue to trend troponin until we achieve Cardiology has evaluated the patient and is not a candidate for any invasive procedure at this time. (3) Cardiomyopathy: Qualifiers: Cardiomyopathy type: unspecified Qualified Code(s): I42.9 - Cardiomyopathy, unspecified Code(s): I42.9 - Cardiomyopathy, unspecified Status: Acute Assessment and Plan: Cardiology recommendation appreciated. Continue amiodarone drip for now. If she has meaningful recovery then she may be candidate for ICD placement. Echocardiogram has been ordered. (4) Elevated LFTs: Code(s): R94.5 - Abnormal results of liver function studies Status: Acute Assessment and Plan: Likely secondary to shock liver. Continue to trend LFTs. If it gets worsened or not improving then may get right upper quadrant ultrasound and hepatitis workup. (5) Hypokalemia: Code(s): E87.6 - Hypokalemia Status: Acute Assessment and Plan: Will continue to replete production. BMP every 6-8 hours to monitor electrolytes as well as renal parameters. (6) Cardiac arrest: Code(s): I46.9 - Cardiac arrest, cause unspecified Status: Acute Assessment and Plan: Continue hypothermia protocol. She is having twitching and myoclonic jerks. Has been started on paralytics. difficult to achieve target temperature. No benzodiazepine and opiates for sedation. She will be continued on propofol until she is paralyzed. Sedatives will be stopped once the Nimbex is withdrawn. She will be revolved after 24 are with target temperature. (7) Acute respiratory failure: Code(s): J96.00 - Acute respiratory failure, unspecified whether with hypoxia or hypercapnia Status: Acute Assessment and Plan: Continue mechanical ventilation with lung protective strategies. She is requiring minimal FiO2 and PEEP. (8) Anoxic brain damage: Code(s): G93.1 - Anoxic brain damage, not elsewhere classified Status: Acute Assessment and Plan: Clinically this seems to have significant anoxic brain damage. Unclear downtime during cardiac arrest. She is having posturing like movements with myoclonic jerks and twitching movements. The CT scan Of the brain once she has revolved. Initial CAT scanned did not show any significant abnormality. Neurological prognostication exam 48-72 hours after she has rewarmed. Neurology consult for neurological prognostication exam after she is rewarmed. She may need EEG at that time as well. (9) Pneumonia: Code(s): J18.9 - Pneumonia, unspecified organism Status: Acute Assessment and Plan: She was febrile today at initial presentation to the ICU. Will start empiric antibiotics with cefepime and vancomycin. Does have bilateral infiltrate /airspace disease on chest x-ray but may not be infectious and may be ARDS instead. Additional Plan Due to a high probability of clinically significant, life threatening deterioration, the patient required my highest level of preparedness to intervene emergently and I personally spent this critical care time directly and personally managing the patient. This critical care time inc
[2019-11-23 11:54] LABS: Blood Urea Nitrogen 10 mg/dL (7-17); Calcium 7.7 mg/dL (8.4-10.2); Carbon Dioxide 22 mmol/L (22-30); Chloride 105 mmol/L (98-107); Estimated CRCL calculation 232 ml/min; Estimated Glomerular Filt Rate > 60; Glucose 222 mg/dL (65-105); Lactic Acid 0.9 mmol/L (0.7-2.1); Potassium 2.8 mmol/L (3.4-5.0); Sodium 137 mmol/L (137-145)
[2019-11-23 12:10] LABS: Creatine Kinase 2683 U/L (30-135)
--- NOTE | 2019-11-23 12:23 | PC.NURSE ---
MD Evans made aware of excessive urine output
[2019-11-23] MEDS: KCL 20 MEQ/LR 1,000 ML 100 ML IV CONT ×2 (13:31→23:08)
--- NOTE | 2019-11-23 13:49 | PM.IMPN ---
Progress Note: A&P Assessment and Plan (1) Cardiac arrest: Code(s): I46.9 - Cardiac arrest, cause unspecified Status: Acute Assessment and Plan: Patient sustained an [id number] VFib cardiac arrest with unknown down time. She has been admitted to the ICU. She is paralyzed and on cooling protocol. Amiodarone started. Initial CT of the brain showing no abnormalities. Patient however clinically appears to have suffered an anoxic brain injury. Complete including protocol with plans repeat brain CT post protocol. Discussed with manager rn. Appreciate manager rn input. (2) Hypokalemia: Code(s): E87.6 - Hypokalemia Status: Acute Assessment and Plan: Potassium was 2.3 on admission. One would suspect this to be higher due to the acidosis. Hypokalemia could have triggered the VFib arrest. Continue to monitor potassium. Continue replacement to normal values. Mag level normal. (3) Anoxic brain damage: Code(s): G93.1 - Anoxic brain damage, not elsewhere classified Status: Acute Assessment and Plan: As above. [place] for anoxic brain injury given the physical findings. Will see how she does with the cooling protocol. Family has been made aware by the manager rn about the severity of the patient's illness. (4) Cardiomyopathy: Qualifiers: Cardiomyopathy type: unspecified Qualified Code(s): I42.9 - Cardiomyopathy, unspecified Code(s): I42.9 - Cardiomyopathy, unspecified Status: Acute Assessment and Plan: Patient has a history nonischemic cardiomyopathy. Last EF was 20% by report. She presumably had a normal left heart catheterization in 2018. Echo has been completed but the results are pending. Cardiology following. Appreciate their input. Discussed with product safety coordinator. (5) Hyperammonemia: Code(s): E72.20 - Disorder of urea cycle metabolism, unspecified Status: Acute Assessment and Plan: Ammonia level 57. Probably related to the shock. Will continue to monitor. (6) Pneumothorax: Qualifiers: Pneumothorax type: traumatic Encounter type: initial encounter Qualified Code(s): S27.0XXA - Traumatic pneumothorax, initial encounter Code(s): J93.9 - Pneumothorax, unspecified Status: Acute Assessment and Plan: Tension PTX probably related to the CPR performed in the field. Right sided Chest Tube placed. Lung has re-expanded and shift has resolved. CXR reviewed personally. (7) Acute respiratory failure: Qualifiers: Respiratory failure complication: hypoxia Qualified Code(s): J96.01 - Acute respiratory failure with hypoxia Code(s): J96.00 - Acute respiratory failure, unspecified whether with hypoxia or hypercapnia Status: Acute Assessment and Plan: Acute repiratory fialure requiring intubation. ABG has improved with normal pH. Patient has had a normal pCO2 to suggest the acidosis more metabolic from the lactic. Continue supportive care. (8) Elevated troponin: Code(s): R79.89 - Other specified abnormal findings of blood chemistry Status: Acute Assessment and Plan: Troponin peaked at 7.14. Related to above. Doubt etiology is acute NM. Cardiology following. (9) Pneumonia: Qualifiers: Pneumonia type: due to unspecified organism Laterality: right Lung location: upper lobe of lung Qualified Code(s): J18.9 - Pneumonia, unspecified organism Code(s): J18.9 - Pneumonia, unspecified organism Status: Acute Assessment and Plan: CXR showing possible RUL infiltrative process. She is having fevers whch could be relate to brain injury. Emperic broad spectrum abx started. (10) Elevated LFTs: Code(s): R94.5 - Abnormal results of liver function studies Status: Acute Assessment and Plan: LFTs elevated admission. LFTs climbing. Probably due to shocked liver. Continue monitor.
[2019-11-23 13:58] LABS: Glucose Point of Care 117 (65-105)
[2019-11-23] MEDS: DESMOPRESSIN ACETATE 4 MCG/ML AMP 2 MCG IV PUSH (13:58)
--- NOTE | 2019-11-23 14:04 | P.PCNBED_ITS ---
Procedures Arterial Line: Arterial Line Date: 11/23/19 Arterial Line Time: 10:05 Discussed with the patient/family/POA, the non-emergent placement of an arterial catheter, including its clinical necessity/indication and associated potential risks and complications: No Patient/family/POA and/or understand(s) and acknowledge(s) the need to proceed with the arterial catheter insertion as an important element of the patient's clinical management: No A pre-procedural Time-Out was completed immediately before starting the procedure and confirmed: Patient Identification, Site, Procedure, Patient Position and the Availability of Requisite Equipment: Yes 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
--- NOTE | 2019-11-23 15:01 | PM.CNGS ---
Assessment and Plan Assessment and plan (1) Pneumothorax: Qualifiers: Pneumothorax type: traumatic Encounter type: initial encounter Qualified Code(s): S27.0XXA - Traumatic pneumothorax, initial encounter Code(s): J93.9 - Pneumothorax, unspecified Status: Acute Assessment and Plan: I have reviewed the chest x-ray and examined the Pleur-Evac. There still is an air leak present, but lung is fully expanded on x-ray. She is currently on positive pressure ventilation, therefore chest tube will be kept in place. Will continue to monitor for persistent air leak. Unsure whether patient will recover from her other debility is a to be able to have chest tube removed, but will continue to follow along with patient. (2) Acute respiratory failure: Qualifiers: Respiratory failure complication: hypoxia Qualified Code(s): J96.01 - Acute respiratory failure with hypoxia Code(s): J96.00 - Acute respiratory failure, unspecified whether with hypoxia or hypercapnia Status: Acute (3) Cardiac arrest: Code(s): I46.9 - Cardiac arrest, cause unspecified Status: Acute History of Present Illness Consult details Consult date: 11/23/19 Narrative: This is a 38-year-old woman who presented to the emergency department overnight with a cardiac arrest. She is currently intubated in the ICU and history is unable to be obtained from patient. All history is obtained from the chart and from the nursing staff. She collapsed yesterday and EMS was called and CPR was initiated. She was intubated in the field and chest x-ray in the emergency department showed a right tension pneumothorax. Chest tube was placed by the ED physician. Follow-up chest x-ray showed re-expansion of the lung. She is noted to have a large air leak, but lung is re-expanded on the x-ray. Hypothermia protocol was initiated, and she is currently on maximum ventilatory support and paralyzed. Review of Systems Review of Systems: ROS unobtainable: unobtainable due to endotracheal tube and unobtainable due to mental status PMFSH Past Medical History Medical History Arrhythmia Unknown type; pt is supposed to wear LifeVest defibrillator. Cardiomyopathy Dyslipidemia Essential hypertension Surgical History Surgical History History of above-knee amputation of right lower extremity Due to bone cancer at the age of 16 Family History Family History Father , Paternal family history unknown No problems noted. Mother No known health problems Grandparent Cervical cancer Ovarian cancer Macular degeneration Social History Social History Social History: The patient has smoked on and off since she was 14 years old. For the most part she has smoked a pack of cigarettes per day for approximately 19 years. She had quit smoking for 2 and 3 years at a time on 2 other occasions. She used to smoke marijuana but the family does not think she has smoked marijuana recently. She only drinks alcohol on occasion and in moderation. She is engaged to be . She has 3 children; the oldest is 18 the younger children are 3-year-old twins. 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 Gender identity (if verbalized by the patient): Female Spiritual care concerns: No Agree to blood products: Yes Meds Home Medications and Allergies Home
[2019-11-23 15:38] LABS: Hematocrit 41.5 % (37.0-47.0); Hemoglobin 13.4 g/dL (12.0-15.0); Mean Corpuscular HGB Conc 32.3 g/dl (32-36); Mean Corpuscular Volume 86.6 fl (80-100); Mean Platelet Volume 10.4 fl (7.4-10.4); Platelet Count Result 190 k/mm3 (150-375); Red Blood Count 4.79 M/mm3 (4.2-5.4); White Blood Count 10.7 K/mm3 (4.5-10.0)
[2019-11-23 15:49] LABS: INR 1.1; Prothrombin Time 13.9 Seconds (11.1-14.7)
[2019-11-23 15:50] LABS: Blood Urea Nitrogen 9 mg/dL (7-17); Calcium 7.9 mg/dL (8.4-10.2); Carbon Dioxide 21 mmol/L (22-30); Chloride 105 mmol/L (98-107); Estimated CRCL calculation 232 ml/min; Estimated Glomerular Filt Rate > 60; Glucose 125 mg/dL (65-105); Partial Thromboplastin Time 27.8 SECONDS (22.3-36.8); Phosphorus 2.6 mg/dL (2.5-4.5); Sodium 134 mmol/L (137-145)
[2019-11-23 16:24] LABS: Glucose Point of Care 113 (65-105)
[2019-11-23 17:46] LABS: Lactic Acid 1.1 mmol/L (0.7-2.1)
[2019-11-23 17:54] LABS: Creatine Kinase 2370 U/L (30-135)
--- NOTE | 2019-11-23 18:00 | ECG_ITS ---
Measurements Intervals [place] Rate: 67 P: 70 [place]: 155 QRS: -25 QRSD: 113 T: 0 QT: 450 QTc: 476 Interpretive Statements SINUS RHYTHM INTRAVENTRICULAR CONDUCTION DELAY DELAYED PRECORDIAL R/S TRANSITION T WAVE ABNORMALITY IN ANTERIOR LEADS- CONSIDER ISCHEMIA ABNORMAL ECG Electronically Signed On 11-25-2019 11:54:16 SORTER LAUNDRY ARTICLES by Karsten Flores D.O.
[2019-11-23 18:48] LABS: Glucose Point of Care 98 (65-105)
[2019-11-23 20:42] LABS: Blood Urea Nitrogen 9 mg/dL (7-17); Calcium 7.8 mg/dL (8.4-10.2); Carbon Dioxide 23 mmol/L (22-30); Chloride 106 mmol/L (98-107); Estimated CRCL calculation 232 ml/min; Estimated Glomerular Filt Rate > 60; Glucose 127 mg/dL (65-105); Potassium 5.2 mmol/L (3.4-5.0); Sodium 135 mmol/L (137-145)
[2019-11-23 21:24] LABS: Glucose Point of Care 118 (65-105)
[2019-11-23 22:41] LABS: Glucose Point of Care 198 (65-105)
[2019-11-23 23:15] LABS: Glucose Point of Care 182 (65-105)
[2019-11-24] VITALS (30 sets, daily range): BP systolic 82–164; BP diastolic 44–93; PULSE 43–87; RESP 14; TEMP 31.8–36.2; O2SAT 96–100
[2019-11-24] MEDS: HEPARIN SODIUM 5,000 UNITS/ML VIAL 5000 UNITS SUB-Q ×4 (00:08→23:48)
[2019-11-24 00:46] LABS: Lactic Acid 1.3 mmol/L (0.7-2.1)
[2019-11-24 00:47] LABS: Blood Urea Nitrogen 9 mg/dL (7-17); Calcium 7.5 mg/dL (8.4-10.2); Carbon Dioxide 22 mmol/L (22-30); Chloride 103 mmol/L (98-107); Estimated CRCL calculation 232 ml/min; Estimated Glomerular Filt Rate > 60; Glucose 109 mg/dL (65-105); Potassium 3.7 mmol/L (3.4-5.0); Sodium 132 mmol/L (137-145)
[2019-11-24 00:58] LABS: Creatine Kinase 1924 U/L (30-135)
[2019-11-24 01:16] LABS: Glucose Point of Care 114 (65-105)
[2019-11-24 03:12] LABS: Glucose Point of Care 84 (65-105)
[2019-11-24] MEDS: AMIODARONE 360 MG/D5W 200 ML 360 MG/200 ML BAG 33.3 MG IV CONT ×2 (03:23→13:01)
[2019-11-24] MEDS: PROPOFOL IV EMULSION 100 ML 30.8 MG IV CONT ×5 (03:38→17:53)
[2019-11-24] MEDS: SODIUM CHLORIDE 0.9% IV 1,000 ML 500 ML IV CONT (04:22)
[2019-11-24 04:32] LABS: Glucose Point of Care 108 (65-105)
[2019-11-24 05:02] LABS: Base Excess ABG -7.2 mEq/l (+/-2.0); Carboxyhemoglobin 0.3 % THb (0-2.0); Fractional Inspired Oxygen 30 %; HCO3 ABG 17.9 mEq/l (22.0-26.0); Methemoglobin ABG 0.1 %THb (0-1.5); Oxygen Content ABG 16.1 %vol (16.0-22.0); Oxygen Saturation ABG 98.1 % (95.0-100.0); Oxyhemoglobin 96.5 % THb (90.0-100.0); PCO2 ABG 34.9 mmHg (35.0-45.0); PO2 ABG 117.9 mmHg (80.0-100.0); PO2 FiO2 Ratio Arterial Blood 3.93 %; Reduced Hemoglobin 3.1 %THb (0-5.0); Total Hemoglobin 11.7 g/dL (12.0-18.0); pH ABG 7.328 (7.350-7.450)
[2019-11-24 05:03] LABS: Device VENTILATOR; Site Drawn ARTLINE
[2019-11-24 05:04] LABS: Arterial Blood Gas PEEP 5 cmH2O; Arterial Blood Gas Tidal Volume 400 ml; Arterial Blood Gas Vent Mode CMV; Arterial Blood Gas Ventilator rate 14 /MIN
[2019-11-24 06:07] LABS: Creatine Kinase 1305 U/L (30-135)
[2019-11-24 06:08] LABS: Alanine Aminotransferase 93 U/L (4-35); Albumin Level 2.7 g/dL (3.5-5.1); Alkaline Phosphatase 40 U/L (38-126); Aspartate Amino Transferase 95 U/L (14-36); Bilirubin,Total 1.3 mg/dL (0.2-1.3); Blood Urea Nitrogen 9 mg/dL (7-17); Calcium 7.2 mg/dL (8.4-10.2); Carbon Dioxide 22 mmol/L (22-30); Chloride 104 mmol/L (98-107); Estimated CRCL calculation 237 ml/min; Estimated Glomerular Filt Rate > 60; Glucose 98 mg/dL (65-105); Magnesium 1.6 mg/dL (1.6-2.3); Phosphorus 2.5 mg/dL (2.5-4.5); Potassium 5.9 mmol/L (3.4-5.0); Sodium 131 mmol/L (137-145)
[2019-11-24 06:12] LABS: Hematocrit 35.4 % (37.0-47.0); Hemoglobin 11.4 g/dL (12.0-15.0); Lactic Acid 1.1 mmol/L (0.7-2.1); Mean Corpuscular HGB Conc 32.2 g/dl (32-36); Mean Corpuscular Hemoglobin 28.7 pg (26-34); Mean Corpuscular Volume 89.2 fl (80-100); Mean Platelet Volume 10.7 fl (7.4-10.4); Platelet Count Result 151 k/mm3 (150-375); Red Blood Count 3.97 M/mm3 (4.2-5.4); Red Cell Distribution Width 13.2 % (11.5-14.5); White Blood Count 7.5 K/mm3 (4.5-10.0)
[2019-11-24 06:57] LABS: Glucose Point of Care 95 (65-105)
[2019-11-24 07:57] LABS: Blood Urea Nitrogen 8 mg/dL (7-17); Calcium 7.4 mg/dL (8.4-10.2); Carbon Dioxide 22 mmol/L (22-30); Chloride 103 mmol/L (98-107); Estimated CRCL calculation 237 ml/min; Estimated Glomerular Filt Rate > 60; Glucose 98 mg/dL (65-105); Potassium 4.4 mmol/L (3.4-5.0); Sodium 131 mmol/L (137-145)
[2019-11-24 08:07] LABS: Glucose Point of Care 92 (65-105)
[2019-11-24] MEDS: levETIRAcetam 500MG/NACL 100ML 500 MG/100 ML BAG 400 MG IVPB ×2 (08:17→20:07)
[2019-11-24] MEDS: FAMOTIDINE 20 MG/2 ML VIAL IV PUSH ×2 (08:19→20:07)
[2019-11-24] MEDS: MAGNESIUM SULF 2 GM/WATER 50ML 2 GM/50 ML BAG IVPB (08:19)
--- NOTE | 2019-11-24 09:03 | PM.PNCARD ---
Progress Note: A&P Assessment and Plan (1) Cardiomyopathy: Qualifiers: Cardiomyopathy type: unspecified Qualified Code(s): I42.9 - Cardiomyopathy, unspecified Code(s): I42.9 - Cardiomyopathy, unspecified Status: Acute Assessment and Plan: Known severe cardiomyopathy. Previous cardiac catheterization reportedly showed no coronary disease. 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 Will request records from [facility] regarding previous workup and follow-up. Echo shows ejection fraction 20-25% (2) Cardiac arrest: Code(s): I46.9 - Cardiac arrest, cause unspecified Status: Acute Assessment and Plan: Currently undergoing cooling protocol. Will start warming today. Continue amiodarone drip. If meaningful neurological recovery, patient will need ICD if she is agreeable for secondary prevention (3) Elevated LFTs: Code(s): R94.5 - Abnormal results of liver function studies Status: Acute Assessment and Plan: Related to shock liver: Improved (4) Hypokalemia: Code(s): E87.6 - Hypokalemia Status: Acute Assessment and Plan: Stabilized (5) Elevated troponin: Code(s): R79.89 - Other specified abnormal findings of blood chemistry Status: Acute Assessment and Plan: Unlikely related to acute plaque rupture. More likely related to prolonged arrest. Trending down (6) Pneumothorax: Qualifiers: Pneumothorax type: traumatic Encounter type: initial encounter Qualified Code(s): S27.0XXA - Traumatic pneumothorax, initial encounter Code(s): J93.9 - Pneumothorax, unspecified Status: Acute Assessment and Plan: Management per manager non profit (7) Hypomagnesemia: Code(s): E83.42 - Hypomagnesemia Status: Acute Assessment and Plan: Will give a total of 3 g IV magnesium Subjective Date/time seen: 11/24/19 09:03 Interval history: Chief complaint: 38yo female with hx of NICMP admitted after sustaining an jxi-ya-bkcrxogb cardiac arrest. Date of service 11/24/2019: She remains intubated, paralyzed. Echocardiogram showing severe cardiomyopathy. Cooling protocol still in place. She to Will start be warmed later this afternoon. No arrhythmia overnight Review of Systems Review of Systems: All systems reviewed & are unremarkable except as noted in HPI and below ROS unobtainable: unobtainable due to endotracheal tube Constitutional: Constitutional: Denies chills and Denies headache(s) ENT: Denies headache(s), Denies lip swelling and Denies epistaxis Cardiovascular: Cardiovascular: Reports leg edema Respiratory: Respiratory: Denies cough Gastrointestinal: Gastrointestinal: Denies hematemesis Genitourinary: Genitourinary: Denies hematuria Integumentary/Breasts: Skin/Breast: Denies wounds Neurologic: Denies behavioral changes Psychiatric: Psychiatric: Denies behavioral changes Endocrine: Endocrine: Denies flushing Hematologic/Lymphatic: Hematologic/Lymphatic: Denies easy bruising Allergic/Immunologic: Allergic/Immunologic: Denies lip swelling Exam Narrative: Exam Narrative: Patient is currently intubated and paralyzed. Const: Other: Currently nonresponsive HENMT: General nose exam: no epistaxis Eyes: Sclera: sclerae normal Neck: Neck: supple and No no JVD Resp: Effort & Inspection: normal respiratory effort Other: Intubated Cardio: Rate: regular rate Rhythm: regular rhythm Back/Spine/Pelvis: Cervical Spine: normal cervical lordosis Skin: General skin exam: normal color Neuro: Other: She was posturing earlier. Currently she is paralyzed Extrem: General: no edema Other: Right bgnqr-cyo-xcgx amputation noted Psych: Other: Unable to be assessed as she is paralyzed, intubated Objective Data Vital Signs Vital Signs: Vital Signs - 24 hr 11/23/19 10:00 11/23/19 10:09 11/23/19 10:57 Temperature 37.1 C Pul
--- NOTE | 2019-11-24 09:06 | WPDINTPN ---
Progress Note: A&P Assessment and Plan (1) Pneumothorax: Qualifiers: Encounter type: initial encounter Pneumothorax type: traumatic Qualified Code(s): S27.0XXA - Traumatic pneumothorax, initial encounter Code(s): J93.9 - Pneumothorax, unspecified Status: Acute Assessment and Plan: chest tube has been placed in the emergency department. Still with huge air leak. Unclear if it is secondary to pressure trauma during intubation and initial mechanical ventilation on route to emergency department or if it is a primary event causing all the rest of the complication. Other possibility can be CPR induced Trauma. Continue chest tube and usual care of the chest tube until she remained intubated. (2) Elevated troponin: Code(s): R79.89 - Other specified abnormal findings of blood chemistry Status: Acute Assessment and Plan: Acute myocardial event versus demand ischemia. troponin peaked at 7.1. There is a downtrend now. Cardiology has evaluated the patient and is not a candidate for any invasive procedure at this time. (3) Cardiomyopathy: Qualifiers: Cardiomyopathy type: unspecified Qualified Code(s): I42.9 - Cardiomyopathy, unspecified Code(s): I42.9 - Cardiomyopathy, unspecified Status: Acute Assessment and Plan: Cardiology recommendation appreciated. Continue amiodarone drip for now. If she has meaningful recovery then she may be candidate for ICD placement. Echocardiogram Showing ejection fraction 20-25%. (4) Elevated LFTs: Code(s): R94.5 - Abnormal results of liver function studies Status: Acute Assessment and Plan: Likely secondary to shock liver. Continue to trend LFTs. LFTs are trending down. (5) Hypokalemia: Code(s): E87.6 - Hypokalemia Status: Acute Assessment and Plan: Potassium was replaced yesterday. Today she is hyperkalemic with potassium being 5.9. Will stop IV fluid with KCl and put her on normal saline. (6) Cardiac arrest: Code(s): I46.9 - Cardiac arrest, cause unspecified Status: Acute Assessment and Plan: Continue hypothermia protocol. She is having twitching and myoclonic jerks. Has been started on paralytics. difficult to achieve target temperature. No benzodiazepine and opiates for sedation. She will be continued on propofol until she is paralyzed. Sedatives will be stopped once the Nimbex is withdrawn. Target temperature was achieved at around 2:00 p.m. yesterday. She will be Started on rewarming protocol at around 2:00 p.m. today. Nimbex will be weaned once she achieved a temperature of 36? centigrade. Sedatives will be weaned once she is off paralytics. (7) Acute respiratory failure: Qualifiers: Respiratory failure complication: hypoxia Qualified Code(s): J96.01 - Acute respiratory failure with hypoxia Code(s): J96.00 - Acute respiratory failure, unspecified whether with hypoxia or hypercapnia Status: Acute Assessment and Plan: Continue mechanical ventilation with lung protective strategies. She is requiring minimal FiO2 and PEEP. Reviewed chest x-ray and ABG today. (8) Anoxic brain damage: Code(s): G93.1 - Anoxic brain damage, not elsewhere classified Status: Acute Assessment and Plan: Clinically this seems to have significant anoxic brain damage. She is having posturing like movements with myoclonic jerks and twitching movements. The CT scan of the brain once she has rewarmed. Initial CAT scanned did not show any significant abnormality. Neurological prognostication exam 48-72 hours after she has rewarmed. Neurology consult for neurological prognostication exam after she is rewarmed. She may need EEG at that time as well. (9) Pneumonia: Qualifiers: Laterality: right Lung location: upper lobe of lung Pneumonia type: due to unspecified organi
[2019-11-24] MEDS: SODIUM CHLORIDE 0.9% IV 250 ML 100 ML IV CONT (09:29)
[2019-11-24] MEDS: MAGNESIUM SULF 1 GM/D5W 100 ML 1 GM/100 ML BAG IVPB (10:30)
[2019-11-24 11:17] LABS: Glucose Point of Care 181 (65-105)
--- NOTE | 2019-11-24 13:10 | PM.IMPN ---
Progress Note: A&P Assessment and Plan (1) Cardiac arrest: Code(s): I46.9 - Cardiac arrest, cause unspecified Status: Acute Assessment and Plan: Patient sustained an bpo-xn-uxqsuryb VFib cardiac arrest with presumed down time of 38 minutes. ROSC achieved in the ED. She has been admitted to the ICU. She is paralyzed and on cooling protocol. Amiodarone started. Initial CT of the brain showing no abnormalities. Patient however clinically appears to have suffered an anoxic brain injury. Keppra started. Complete cooling protocol today. Wean paralytics and then sedation. Discussed with footwear factory worker. Appreciate footwear factory worker input. (2) Hypokalemia: Code(s): E87.6 - Hypokalemia Status: Acute Assessment and Plan: Potassium was 2.3 on admission. Hypokalemia could have triggered the VFib arrest. Potassium has replaced. Magnesium 1.6 and replacement ordered. Continue to monitor and replace electrolytes as required. (3) Anoxic brain damage: Code(s): G93.1 - Anoxic brain damage, not elsewhere classified Status: Acute Assessment and Plan: As above. Concern for anoxic brain injury given the physical findings. Concern for DI related to possible brain injury. She was given DDAVP this has been stopped. She had almost 5 L urine output yesterday. Plan is to start to warm her this afternoon. Will then wean off the paralytic and sedation. If no response tomorrow, will check EEG and CT scan. Family has been made aware of this plan. Discussed with footwear factory worker. (4) Cardiomyopathy: Qualifiers: Cardiomyopathy type: unspecified Qualified Code(s): I42.9 - Cardiomyopathy, unspecified Code(s): I42.9 - Cardiomyopathy, unspecified Status: Acute Assessment and Plan: Patient has a history nonischemic cardiomyopathy. She presumably had a normal left heart catheterization in 2018. Echo here showing EF of 20-25% and grade 1 diastolic dysfunction. Cardiology following. Appreciate their input. (5) Hyperammonemia: Code(s): E72.20 - Disorder of urea cycle metabolism, unspecified Status: Acute Assessment and Plan: Ammonia level 57. Probably related to the shock. Will repeat tomorrow (6) Pneumothorax: Qualifiers: Encounter type: initial encounter Pneumothorax type: traumatic Qualified Code(s): S27.0XXA - Traumatic pneumothorax, initial encounter Code(s): J93.9 - Pneumothorax, unspecified Status: Acute Assessment and Plan: Tension PTX probably related to the CPR performed in the field. Right sided Chest Tube in place. Lung remains re-expanded and mediastinal shift has resolved. Chest tube management per General surgery. Appreciate General surgery input. (7) Acute respiratory failure: Qualifiers: Respiratory failure complication: hypoxia Qualified Code(s): J96.01 - Acute respiratory failure with hypoxia Code(s): J96.00 - Acute respiratory failure, unspecified whether with hypoxia or hypercapnia Status: Acute Assessment and Plan: Acute respiratory failure requiring intubation. ABG stable. Patient on CMV mode with peep of 5 and FiO2 at 30%. Continue supportive care (8) Elevated troponin: Code(s): R79.89 - Other specified abnormal findings of blood chemistry Status: Acute Assessment and Plan: Troponin peaked at 7.14. Related to VFib arrest. Unlikely she had plaque rupture. Appreciate Cardiology input. (9) Pneumonia: Qualifiers: Laterality: right Lung location: upper lobe of lung Pneumonia type: due to unspecified organism Qualified Code(s): J18.9 - Pneumonia, unspecified organism Code(s): J18.9 - Pneumonia, unspecified organism Status: Acute Assessment and Plan: CXR reviewed from today. Band like atelectasis right middle lobe. Not having fevers due to the cooling process. Continue broad spectrum ab
--- NOTE | 2019-11-24 14:10 | PM.PNGS ---
Progress Note: A&P Assessment and Plan (1) Pneumothorax: Qualifiers: Pneumothorax type: traumatic Encounter type: initial encounter Qualified Code(s): S27.0XXA - Traumatic pneumothorax, initial encounter Code(s): J93.9 - Pneumothorax, unspecified Status: Acute Assessment and Plan: Continue to monitor chest tube until patient is rewarmed and neuro function assessed Could try a new pleurovac tomorrow if air leak persists. CXR shows lung full reexpanded with no residual pneumothorax (2) Acute respiratory failure: Qualifiers: Respiratory failure complication: hypoxia Qualified Code(s): J96.01 - Acute respiratory failure with hypoxia Code(s): J96.00 - Acute respiratory failure, unspecified whether with hypoxia or hypercapnia Status: Acute (3) Anoxic brain damage: Code(s): G93.1 - Anoxic brain damage, not elsewhere classified Status: Acute (4) Cardiac arrest: Code(s): I46.9 - Cardiac arrest, cause unspecified Status: Acute Subjective Subjective Date/Time Seen: 11/24/19 14:10 Patient remains intubated, on hypothermia protocol until this afternoon. Exam Resp: Effort & Inspection: other (full ventilatory support) Auscultation: clear to auscultation bilaterally Other: Right chest tube in place with persistent air leak Objective Data Vital Signs Vital Signs: Vital Signs - 24 hr 11/23/19 15:00 11/23/19 16:00 11/23/19 17:00 Temperature 32.0 C L 32.1 C L 32.9 C L Pulse Rate 55 L 55 L 67 Respiratory Rate 15 14 14 Blood Pressure 87/59 L 91/62 L 93/60 L Pulse Oximetry 98 100 96 11/23/19 17:13 11/23/19 18:00 11/23/19 19:00 Temperature 33.8 C L 34.2 C L Pulse Rate 65 63 64 Respiratory Rate 14 14 Blood Pressure 106/63 106/63 Pulse Oximetry 98 98 98 11/23/19 20:00 11/23/19 20:35 11/23/19 21:00 Temperature 33.9 C L 32.6 C L Pulse Rate 58 L 55 L 49 L Respiratory Rate 14 14 Blood Pressure 102/76 87/55 L Pulse Oximetry 100 100 100 11/23/19 22:00 11/23/19 23:00 11/23/19 23:45 Temperature 31.9 C L 32.5 C L Pulse Rate 49 L 60 60 Respiratory Rate 14 14 Blood Pressure 96/61 L 93/56 L Pulse Oximetry 98 97 98 11/24/19 00:00 11/24/19 01:00 11/24/19 02:00 Temperature 33.6 C L 34.2 C L 33.9 C L Pulse Rate 64 66 66 Respiratory Rate 14 14 14 Blood Pressure 101/57 L 111/78 103/74 Pulse Oximetry 98 100 100 11/24/19 02:02 11/24/19 03:00 11/24/19 04:00 Temperature 33.1 C L 32.2 C L Pulse Rate 66 58 L 54 L Respiratory Rate 14 14 Blood Pressure 105/62 83/51 L Pulse Oximetry 100 99 96 11/24/19 04:55 11/24/19 05:00 11/24/19 06:00 Temperature 32.1 C L 32.7 C L Pulse Rate 59 L 61 60 Respiratory Rate 14 14 Blood Pressure 94/59 L 93/51 L Pulse Oximetry 100 100 100 11/24/19 07:00 11/24/19 08:00 11/24/19 08:10 Temperature 33.8 C L 34.1 C L Pulse Rate 63 51 L 61 Respiratory Rate 14 14 Blood Pressure 109/60 114/62 Pulse Oximetry 100 100 100 11/24/19 09:00 11/24/19 10:00 11/24/19 10:59 Temperature 32.9 C L 32.1 C L 31.8 C L Pulse Rate 49 L 44 L 48 L Respiratory Rate 14 14 14 Blood Pressure 93/50 L 85/45 L 82/44 L Pulse Oximetry 100 100 100 11/24/19 12:00 Temperature 32.7 C L Pulse Rate 61 Respiratory Rate 14 Blood Pressure 118/64 Pulse Oximetry 100 Intake/Output Intake/Output: Intake & Output 11/21/19 11/22/19 11/23/19 11/24/19 23:59 23:59 23:59 23:59 Intake Total 1000 4795 3753.3 Output Total 4930 403 Balance 1000 -135 3350.3 Meds/Results Medications: Active Medications Generic Name Dose Route Start Last Admin Trade Name Freq PRN Reason Stop Dose Admin Famotidine 20 mg 11/23/19 09:00 11/24/19 08:19 Pepcid Iv IV PUSH 20 mg Q12HR YESSY Administration Heparin Sodium (Porcine) 5,000 units 11/23/19 09:00 11/24/19 08:19 Heparin Sodium SUB-Q 5,000 units Q8H YESSY Administration Amiodarone HCl/Dextrose 360 mg in 200 mls @ 16.667 mls/hr 11/23/19 02:56
[2019-11-24] MEDS: SODIUM CHLORIDE 0.9% IV 1,000 ML 100 ML IV CONT ×2 (14:25→17:54)
[2019-11-24 15:01] LABS: Glucose Point of Care 107 (65-105)
[2019-11-24 15:42] LABS: Magnesium 2.3 mg/dL (1.6-2.3); Phosphorus 2.5 mg/dL (2.5-4.5)
[2019-11-24 15:43] LABS: Blood Urea Nitrogen 6 mg/dL (7-17); Calcium 7.4 mg/dL (8.4-10.2); Carbon Dioxide 21 mmol/L (22-30); Chloride 103 mmol/L (98-107); Estimated CRCL calculation 237 ml/min; Estimated Glomerular Filt Rate > 60; Glucose 103 mg/dL (65-105); Potassium 3.4 mmol/L (3.4-5.0); Sodium 129 mmol/L (137-145)
[2019-11-24 17:03] LABS: Glucose Point of Care 93 (65-105)
[2019-11-24 18:20] LABS: Glucose Point of Care 93 (65-105)
[2019-11-24 18:37] LABS: Creatine Kinase 1129 U/L (30-135)
[2019-11-24] MEDS: LABETALOL HCL INJ 100 MG/20 ML VIAL 10 MG IV PUSH (20:06)
[2019-11-24] MEDS: MUPIROCIN 2% OINT 22 GM TUBE 1 APPLIC EACH NARE (20:08)
[2019-11-24 21:36] LABS: Vancomycin Trough 11.5 ug/mL (10.0-20.0)
[2019-11-24] MEDS: PROPOFOL IV EMULSION 100 ML 24.6 MG IV CONT (21:54)
[2019-11-24 22:08] LABS: Glucose Point of Care 88 (65-105)
[2019-11-24 22:08] LABS: Glucose Point of Care 113 (65-105)
[2019-11-24 22:08] LABS: Glucose Point of Care 94 (65-105)
[2019-11-24 22:08] LABS: Glucose Point of Care 119 (65-105)
[2019-11-24] MEDS: AMIODARONE 360 MG/D5W 200 ML 360 MG/200 ML BAG 16.7 MG IV CONT (23:48)
[2019-11-24 23:54] LABS: Glucose Point of Care 140 (65-105)
[2019-11-25] VITALS (26 sets, daily range): BP systolic 116–157; BP diastolic 58–87; PULSE 45–111; RESP 14–26; TEMP 37.1–38.6; O2SAT 93–100; BMI 32.1
[2019-11-25] MEDS: SODIUM CHLORIDE 0.9% IV 1,000 ML 100 ML IV CONT ×3 (02:59→22:13)
[2019-11-25] MEDS: PROPOFOL IV EMULSION 100 ML 12.3 MG IV CONT (03:46)
[2019-11-25 05:11] LABS: Hematocrit 35.6 % (37.0-47.0); Hemoglobin 11.5 g/dL (12.0-15.0); Mean Corpuscular HGB Conc 32.3 g/dl (32-36); Mean Corpuscular Hemoglobin 28.5 pg (26-34); Mean Corpuscular Volume 88.3 fl (80-100); Mean Platelet Volume 10.7 fl (7.4-10.4); Platelet Count Result 167 k/mm3 (150-375); Red Blood Count 4.03 M/mm3 (4.2-5.4); Red Cell Distribution Width 13.6 % (11.5-14.5); White Blood Count 9.7 K/mm3 (4.5-10.0)
[2019-11-25 05:17] LABS: Ammonia < 9 umol/L (9-30); Calcium 8.1 mg/dL (8.4-10.2)
[2019-11-25 05:18] LABS: Blood Urea Nitrogen 3 mg/dL (7-17); Calcium 8.1 mg/dL (8.4-10.2); Carbon Dioxide 21 mmol/L (22-30); Chloride 106 mmol/L (98-107); Estimated CRCL calculation 152 ml/min; Estimated Glomerular Filt Rate > 60; Glucose 100 mg/dL (65-105); Magnesium 1.7 mg/dL (1.6-2.3); Phosphorus 1.4 mg/dL (2.5-4.5); Potassium 3.6 mmol/L (3.4-5.0); Sodium 134 mmol/L (137-145)
[2019-11-25 05:32] LABS: Alveolar/Arterial O2 Gradient 118.8 mmHg; Base Excess ABG -3.3 mEq/l (+/-2.0); Carboxyhemoglobin 0.3 % THb (0-2.0); Fractional Inspired Oxygen 30 %; HCO3 ABG 19.8 mEq/l (22.0-26.0); Methemoglobin ABG 0.3 %THb (0-1.5); Oxygen Content ABG 15.8 %vol (16.0-22.0); Oxygen Saturation ABG 92.4 % (95.0-100.0); Oxyhemoglobin 90.6 % THb (90.0-100.0); PCO2 ABG 29.7 mmHg (35.0-45.0); PO2 ABG 60.2 mmHg (80.0-100.0); PO2 FiO2 Ratio Arterial Blood 2.01 %; Reduced Hemoglobin 8.8 %THb (0-5.0); Total Hemoglobin 12.4 g/dL (12.0-18.0); pH ABG 7.441 (7.350-7.450)
[2019-11-25 05:33] LABS: Arterial Blood Gas Ventilator rate 14 /MIN; Device VENTILATOR; Site Drawn ARTLINE
[2019-11-25 05:34] LABS: Arterial Blood Gas PEEP 5 cmH2O; Arterial Blood Gas Tidal Volume 400 ml; Arterial Blood Gas Vent Mode CMV
[2019-11-25] MEDS: MAGNESIUM SULF 2 GM/WATER 50ML 2 GM/50 ML BAG IVPB (06:29)
[2019-11-25] MEDS: POTASSIUM PHOS,M-BASIC-D-BASIC 20 MMOL in SODIUM CHLORIDE 0.9% IV 250 ML 62.5 MMOL IVPB (06:45)
--- NOTE | 2019-11-25 08:05 | WPDINTPN ---
Progress Note: A&P Assessment and Plan (1) Acute respiratory failure: Qualifiers: Respiratory failure complication: hypoxia Qualified Code(s): J96.01 - Acute respiratory failure with hypoxia Code(s): J96.00 - Acute respiratory failure, unspecified whether with hypoxia or hypercapnia Status: Acute Assessment and Plan: I will continue mechanical ventilation with lung protective strategies. She is requiring minimal FiO2 and PEEP. Reviewed chest x-ray and ABG today. (2) Anoxic brain damage: Code(s): G93.1 - Anoxic brain damage, not elsewhere classified Status: Acute Assessment and Plan: Clinically this seems to have significant anoxic brain damage. She is having posturing like movements with myoclonic jerks and twitching movements. Will repeat CT scan today. Also check EEG On keppra Will try to avoid propofol as much as we can Consult Neurology (3) Pneumothorax: Qualifiers: Pneumothorax type: traumatic Encounter type: initial encounter Qualified Code(s): S27.0XXA - Traumatic pneumothorax, initial encounter Code(s): J93.9 - Pneumothorax, unspecified Status: Acute Assessment and Plan: Chest tube was placed in the emergency department. I did n't see any air leak this morning but I was told she still has intermittent leak Unclear if it is secondary to pressure trauma during intubation and initial mechanical ventilation on route to emergency department or if it is a primary event causing all the rest of the complication. Other possibility can be CPR induced Trauma. Continue chest tube and usual care of the chest tube until she remained intubated. (4) Elevated troponin: Code(s): R79.89 - Other specified abnormal findings of blood chemistry Status: Acute Assessment and Plan: Acute myocardial event versus demand ischemia. troponin peaked at 7.1. There is a downtrend now. Cardiology has evaluated the patient and is not a candidate for any invasive procedure at this time. (5) Cardiomyopathy: Qualifiers: Cardiomyopathy type: unspecified Qualified Code(s): I42.9 - Cardiomyopathy, unspecified Code(s): I42.9 - Cardiomyopathy, unspecified Status: Acute Assessment and Plan: Cardiology recommendation appreciated. Continue amiodarone drip for now to prevent arrythmia If she has meaningful recovery then she may be candidate for ICD placement. Echocardiogram Showing ejection fraction 20-25%. (6) Elevated LFTs: Code(s): R94.5 - Abnormal results of liver function studies Status: Acute Assessment and Plan: Likely secondary to shock liver. Continue to trend LFTs. LFTs are trending down. (7) Hypokalemia: Code(s): E87.6 - Hypokalemia Status: Acute Assessment and Plan: Getting replaced today (8) Cardiac arrest: Code(s): I46.9 - Cardiac arrest, cause unspecified Status: Acute Assessment and Plan: Completed hypothermia protocol. Chi palcaios (9) Pneumonia: Qualifiers: Pneumonia type: due to unspecified organism Laterality: right Lung location: upper lobe of lung Qualified Code(s): J18.9 - Pneumonia, unspecified organism Code(s): J18.9 - Pneumonia, unspecified organism Status: Acute Assessment and Plan: She was febrile today at initial presentation to the ICU. Will start empiric antibiotics with cefepime and vancomycin. Does have bilateral infiltrate /airspace disease on chest x-ray but may not be infectious and may be ARDS instead. Cx NTD. Will resend Blood Cx and UA Fever may be central. PRN tylenol and cooling blanket May deescalate antibiotic if there is no obvious source of infection and cultures remain negative. (10) Hypophosphatemia: Code(s): E83.39 - Other disorders of phosphorus metabolism Status: Acute Assessment and Plan: Getting replaced today (11) P
[2019-11-25] MEDS: FAMOTIDINE 20 MG/2 ML VIAL IV PUSH ×2 (08:09→20:33)
[2019-11-25] MEDS: MUPIROCIN 2% OINT 22 GM TUBE 1 APPLIC EACH NARE ×2 (08:09→20:33)
[2019-11-25] MEDS: HEPARIN SODIUM 5,000 UNITS/ML VIAL 5000 UNITS SUB-Q ×3 (08:09→23:08)
--- NOTE | 2019-11-25 08:37 | PM.IMPN ---
Progress Note: A&P Assessment and Plan (1) Cardiac arrest: Code(s): I46.9 - Cardiac arrest, cause unspecified Status: Acute Assessment and Plan: Patient sustained an beb-yc-nyfmquou VFib cardiac arrest with presumed down time of 38 minutes. ROSC achieved in the ED. She has been admitted to the ICU. She was paralyzed and on cooling protocol. Amiodarone started. Initial CT of the brain showing no abnormalities. Patient however clinically appears to have suffered an anoxic brain injury. Keppra started. She has completed the cooling protocol yesterday. She is now off the paralytics and sedation. Discussed with rig site engineer. Appreciate rig site engineer input. Further plan as detailed below. (2) Hypokalemia: Code(s): E87.6 - Hypokalemia Status: Acute Assessment and Plan: Potassium was 2.3 on admission. Hypokalemia could have triggered the VFib arrest. Potassium has replaced and now at 3.6. Magnesium 1.7 today and replacement ordered. phosphorus is also low at 1.4 and this also was replaced. Continue to monitor and replace electrolytes as needed. (3) Anoxic brain damage: Code(s): G93.1 - Anoxic brain damage, not elsewhere classified Status: Acute Assessment and Plan: As above. Concern for anoxic brain injury given the physical findings. Concern for DI related to possible brain injury. She was given DDAVP but not continued. She had almost 5 L urine output on 11/23/2019 but only 920 mL yesterday. Urine output better today. Plan is to check EEG and CT scan today. Family has been made aware of this plan. Discussed with rig site engineer. (4) Cardiomyopathy: Qualifiers: Cardiomyopathy type: unspecified Qualified Code(s): I42.9 - Cardiomyopathy, unspecified Code(s): I42.9 - Cardiomyopathy, unspecified Status: Acute Assessment and Plan: Patient has a history nonischemic cardiomyopathy. She presumably had a normal left heart catheterization in 2018. Echo here showing EF of 20-25% and grade 1 diastolic dysfunction. Cardiology following. Appreciate their input. (5) Hyperammonemia: Code(s): E72.20 - Disorder of urea cycle metabolism, unspecified Status: Acute Assessment and Plan: Ammonia level 57. Probably related to the shock. Repeat Ammonia level negative. follow intermittently. (6) Pneumothorax: Qualifiers: Encounter type: initial encounter Pneumothorax type: traumatic Qualified Code(s): S27.0XXA - Traumatic pneumothorax, initial encounter Code(s): J93.9 - Pneumothorax, unspecified Status: Acute Assessment and Plan: Tension PTX probably related to the CPR performed in the field. Right sided Chest Tube in place. Lung remains re-expanded and mediastinal shift has resolved. CXR today showing small apical PTX. Chest tube management per General surgery. Appreciate General surgery input. (7) Acute respiratory failure: Qualifiers: Respiratory failure complication: hypoxia Qualified Code(s): J96.01 - Acute respiratory failure with hypoxia Code(s): J96.00 - Acute respiratory failure, unspecified whether with hypoxia or hypercapnia Status: Acute Assessment and Plan: Acute respiratory failure requiring intubation. ABG stable. Patient on CMV mode with peep of 5 and FiO2 at 30%. Vent manamgement per rig site engineer. Continue supportive care. (8) Elevated troponin: Code(s): R79.89 - Other specified abnormal findings of blood chemistry Status: Acute Assessment and Plan: Troponin peaked at 7.14. Related to VFib arrest. Unlikely she had plaque rupture. Appreciate Cardiology input. (9) Pneumonia: Qualifiers: Laterality: right Lung location: upper lobe of lung Pneumonia type: due to unspecified organism Qualified Code(s): J18.9 - Pneumonia, unspecified organism Code(s): J18.9 - Pneumonia,
[2019-11-25] MEDS: levETIRAcetam 500MG/NACL 100ML 500 MG/100 ML BAG 400 MG IVPB ×2 (08:43→20:32)
--- NOTE | 2019-11-25 10:30 | NEURO_ITS ---
TEST: ELECTROENCEPHALOGRAM DIAGNOSIS: ANOXIC INJURY PATIENT NUMBER: [id number] EEG NUMBER: [id number] RECORDING DATE: 11/25/19 CLINICAL HISTORY: Patient has history of cardiomyopathy and had cardiac arrest. Hypothermia protocol done and finished last night. Patient remains unresponsive and posturing. Been off of Propofol for 4 hours. CONDITION OF RECORDING: Comatose EEG DESCRIPTION: The whole record consists of medium to high voltage 2-3hz delta and 5-7hz theta seen bilaterally without evidence of paroxysmal phenomenon or decrement in the activity. Nonparoxysmal. Nonfocal. Nonlateralizing. IMPRESSION: Severely abnormal record due to a the presence of bi-hemispheric theta and delta activity with sharp complexes raising the possibility of hypoxic encephalopathy. Clinical correlation recommended. [facility]
--- NOTE | 2019-11-25 10:49 | PCDIET ---
MD ordered tube feeding initiation this date. Recommend Vital 1.2 beginning at 20mL/hr and advancing by 10mL/hr every 8 hours, as tolerated, to goal rate of 65mL/hr. Over estimated 22 hours/day, this will provide 1716kcal (2040kcal with Propofol at present rate), 107g protein and 1159mL free water. Recommend continuing 30mL water flush every 4 hours as this time and tapering IV fluids as able.
--- NOTE | 2019-11-25 11:24 | PM.EVENT ---
Event Note Event Note Event Note: Case discussed with neurology I discussed medical decisions and level of care with patient's mother as the patient is in unable to participate. I updated her with results of CT, neuro exam this am and prelim findings on EEG. I discussed code status and bed bug exterminator prognosis and potential outcomes. She is going to discuss this with her daughter and pt's daughter and decide on code status and also discuss bed bug exterminator options Additional critical care time 30 minutes
[2019-11-25] MEDS: AMIODARONE 360 MG/D5W 200 ML 360 MG/200 ML BAG 16.7 MG IV CONT ×2 (12:09→23:07)
--- NOTE | 2019-11-25 12:36 | PM.PNCARD ---
Progress Note: A&P Assessment and Plan (1) Cardiomyopathy: Qualifiers: Cardiomyopathy type: unspecified Qualified Code(s): I42.9 - Cardiomyopathy, unspecified Code(s): I42.9 - Cardiomyopathy, unspecified Status: Acute Assessment and Plan: Known severe cardiomyopathy. Previous cardiac catheterization reportedly showed no coronary disease. 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 Echo shows ejection fraction 20-25% (2) Cardiac arrest: Code(s): I46.9 - Cardiac arrest, cause unspecified Status: Acute Assessment and Plan: Continue amiodarone drip. No arrhythmias on monitor. (3) Elevated LFTs: Code(s): R94.5 - Abnormal results of liver function studies Status: Acute Assessment and Plan: Related to shock liver: Improved (4) Hypokalemia: Code(s): E87.6 - Hypokalemia Status: Acute Assessment and Plan: Stabilized (5) Elevated troponin: Code(s): R79.89 - Other specified abnormal findings of blood chemistry Status: Acute Assessment and Plan: Unlikely related to acute plaque rupture. More likely related to prolonged arrest (6) Pneumothorax: Qualifiers: Encounter type: initial encounter Pneumothorax type: traumatic Qualified Code(s): S27.0XXA - Traumatic pneumothorax, initial encounter Code(s): J93.9 - Pneumothorax, unspecified Status: Acute Assessment and Plan: Management per daytime babysitter (7) Hypomagnesemia: Code(s): E83.42 - Hypomagnesemia Status: Acute Assessment and Plan: Corrected Additional Plan No further cardiac recommendations Seen Neurology consultation. Poor prognosis Plan discussed with Dr. Millan [id number] 11/25/2019 Time Spent With Patient Time with patient: less than 15 minutes Subjective Date/time seen: 11/25/19 12:36 Interval history: Follow-up for: History of NICMP admitted after sustaining an [id number] cardiac arrest. Date of service: 11/25/2019 Subjective: Review of Systems Review of Systems: ROS unobtainable: unobtainable due to endotracheal tube and unobtainable due to mental condition Exam Narrative: Exam Narrative: Remains intubated sedated Const: Other: Currently nonresponsive HENMT: General nose exam: no epistaxis Eyes: Sclera: sclerae normal Other: Pupils were dilated Neck: Neck: supple and No no JVD Resp: Effort & Inspection: normal respiratory effort Auscultation: rhonchi (Scattered) Other: Intubated Cardio: Rate: regular rate Rhythm: regular rhythm Back/Spine/Pelvis: Cervical Spine: normal cervical lordosis Skin: General skin exam: normal color Neuro: Other: No movement at this time Extrem: General: no edema Other: Right [id number] amputation noted Psych: Other: Non responsive Objective Data Vital Signs Vital Signs: Vital Signs - 24 hr 11/24/19 13:00 11/24/19 14:00 11/24/19 15:00 Temperature 32.9 C L 33.9 C L 33.7 C L Pulse Rate 60 57 L 50 L Respiratory Rate 14 14 14 Blood Pressure 117/61 121/63 119/63 Pulse Oximetry 100 100 100 11/24/19 16:00 11/24/19 17:00 11/24/19 17:30 Temperature 32.8 C L 33.4 C L Pulse Rate 47 L 62 54 L Respiratory Rate 14 14 Blood Pressure 93/50 L 119/62 Pulse Oximetry 100 100 100 11/24/19 18:00 11/24/19 19:00 11/24/19 20:00 Temperature 33.8 C L 35.5 C L 35.5 C L Pulse Rate 65 87 85 Respiratory Rate 14 14 14 Blood Pressure 116/60 156/86 H 164/93 H Pulse Oximetry 100 98 98 11/24/19 20:11/24/19 21:00 11/24/19 22:00 Temperature 35.8 C L 36.2 C L Pulse Rate 82 63 66 Respiratory Rate 14 14 Blood Pressure 90/59 L 109/71 Pulse Oximetry 98 98 98 11/24/19 23:26 11/25/19 00:00 11/25/19
--- NOTE | 2019-11-25 12:38 | PM.PNGS ---
Progress Note: A&P Assessment and Plan (1) Pneumothorax: Qualifiers: Encounter type: initial encounter Pneumothorax type: traumatic Qualified Code(s): S27.0XXA - Traumatic pneumothorax, initial encounter Code(s): J93.9 - Pneumothorax, unspecified Status: Acute Assessment and Plan: CXR shows tiny right apical pneumothorax. Persistent air leak. Continue to monitor chest tube until neuro function is fully assessed. (2) Acute respiratory failure: Qualifiers: Respiratory failure complication: hypoxia Qualified Code(s): J96.01 - Acute respiratory failure with hypoxia Code(s): J96.00 - Acute respiratory failure, unspecified whether with hypoxia or hypercapnia Status: Acute Assessment and Plan: Patient on positive pressure ventilation. (3) Anoxic brain damage: Code(s): G93.1 - Anoxic brain damage, not elsewhere classified Status: Acute (4) Cardiac arrest: Code(s): I46.9 - Cardiac arrest, cause unspecified Status: Acute Additional Plan Discussed plan of care and patient's case with Dr. Khalil. Subjective Subjective Date/Time Seen: 11/25/19 10:05 Interval history: Patient chart reviewed and she was seen and examined. Patient intubated and mechanically ventilated. No family at the bedside at this time. Per the nurse, patient has been rewarmed and they are doing an EEG today. CT head this morning showed evidence of anoxic brain injury. Review of Systems Review of Systems: ROS unobtainable: unobtainable due to endotracheal tube and unobtainable due to mental status Exam Const: General: other ( intubated) Orientation/consciousness: Other orientation findings (unresponsive) Resp: Effort & Inspection: other (full ventilatory support) Auscultation: clear to auscultation bilaterally Other: Right chest tube in place with persistent air leak. Dressing reinforced. Objective Data Vital Signs Vital Signs: Vital Signs - 24 hr 11/24/19 13:00 11/24/19 14:00 11/24/19 15:00 Temperature 32.9 C L 33.9 C L 33.7 C L Pulse Rate 60 57 L 50 L Respiratory Rate 14 14 14 Blood Pressure 117/61 121/63 119/63 Pulse Oximetry 100 100 100 11/24/19 16:00 11/24/19 17:00 11/24/19 17:30 Temperature 32.8 C L 33.4 C L Pulse Rate 47 L 62 54 L Respiratory Rate 14 14 Blood Pressure 93/50 L 119/62 Pulse Oximetry 100 100 100 11/24/19 18:00 11/24/19 19:00 11/24/19 20:00 Temperature 33.8 C L 35.5 C L 35.5 C L Pulse Rate 65 87 85 Respiratory Rate 14 14 14 Blood Pressure 116/60 156/86 H 164/93 H Pulse Oximetry 100 98 98 11/24/19 20:01 11/24/19 21:00 11/24/19 22:00 Temperature 35.8 C L 36.2 C L Pulse Rate 82 63 66 Respiratory Rate 14 14 Blood Pressure 90/59 L 109/71 Pulse Oximetry 98 98 98 11/24/19 23:26 11/25/19 00:00 11/25/19 01:58 Temperature 37.1 C Pulse Rate 71 84 85 Respiratory Rate 14 Blood Pressure 116/70 Pulse Oximetry 100 99 96 11/25/19 02:00 11/25/19 04:00 11/25/19 05:25 Temperature 37.4 C Pulse Rate 87 109 H 94 Respiratory Rate 20 26 H Blood Pressure 125/74 139/77 Pulse Oximetry 95 93 97 11/25/19 05:41 11/25/19 06:00 11/25/19 06:15 Temperature 38.6 C H 38.6 C H Pulse Rate 99 Respiratory Rate 20 Blood Pressure 126/75 Pulse Oximetry 95 11/25/19 07:45 11/25/19 08:00 11/25/19 08:15 Temperature 38.3 C H Pulse Rate 111 H 111 H 106 H Respiratory Rate 19 19 Blood Pressure 124/58 L Pulse Oximetry 97 97 100 11/25/19 09:17 11/25/19 10:00 11/25/19 12:00 Temperature 37.8 C H Pulse Rate 98 94 93 Respiratory Rate 16 17 Blood Pressure 143/70 H 157/77 H Pulse Oximetry 98 97 98 Intake/Output Intake/Output: Intake & Output 11/22/19 11/23/19 11/24/19 11/25/19 23:59 23:59 23:59 23:59 Intake Total 1000 4793 6534.7 2644 Output Total 7972 923 0387 Balance 1000 -439 8821.7 -7224 Meds/Results Medications: Active Medications Generic Name Dose Route Start Last Admin Trade
--- NOTE | 2019-11-25 12:45 | CONS_ITS ---
DATE OF CONSULTATION: 11/22/2019 HISTORY OF PRESENT ILLNESS: This 38 years old lady has been admitted to [facility] ICU through the emergency room where she was brought by the EMS subsequent to complete cardiac arrest. 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 Upon arrival to the scene, she was found to be unresponsive. She had a dilated pupil. Narcan was administered without any change in the mental status. EMS then found patient was in fibrillation. She received 3 shocks that dispensed 200 joules with no change in the rate. EMS stated that they administered 3 rounds of epinephrine, 4 doses of Narcan as well as joules, no changes in the rate. EMS stated that they administered 3 rounds of epinephrine, 4 doses of Narcan as well as amiodarone and 2 rounds of magnesium. Patient arrived with intubation, Baldomero chest compression present, has right BKA present. EMS also noted that the patient's emergency contact relayed that she is supposed to wear a LifeVest defibrillator. Neuro consultation has been obtained to evaluate the mental status. The patient at this stage was having the EEG, which was personally reviewed, which was not a flat line but significant damage consistent with the hypoxia with the high voltage delta activity with very short phases of pause in cortical activity. PHYSICAL EXAMINATION: NEUROLOGIC: On examination today, she was unresponsive to verbal command, unresponsive to painful stimuli. Head was normocephalic with no cranial bruit. Neck was supple with no meningeal signs. Pupils were nonreacting to light. Extraocular movements were absent. Facial grimace was absent. Gag was absent. She was not moving spontaneously upper and lower extremities. There was no movement in response to noxious stimuli also. Deep tendon reflexes were completely absent. Plantars were completely flat. ASSESSMENT AND PLAN: Severe hypoxic encephalopathy secondary to cardiopulmonary arrest in the field. The patient's mother was here. All the pros and cons of the situation were discussed with her. At this stage, the prognosis is extremely poor. LAURITA PATRICK M.D. [address]UV[employer] COURT JUDGE JUV[place]ILE COURT JUDGE D I MT: Marcio
[2019-11-25 13:30] LABS: Creatine Kinase 737 U/L (30-135)
[2019-11-25 13:31] LABS: Blood Urea Nitrogen 3 mg/dL (7-17); Calcium 7.7 mg/dL (8.4-10.2); Carbon Dioxide 23 mmol/L (22-30); Chloride 105 mmol/L (98-107); Estimated CRCL calculation 152 ml/min; Estimated Glomerular Filt Rate > 60; Glucose 135 mg/dL (65-105); Potassium 3.6 mmol/L (3.4-5.0); Sodium 135 mmol/L (137-145)
--- NOTE | 2019-11-25 15:01 | PC.NURSE ---
Discussion had with family and Dr. German. Pt.'s daughter decided to make the patient a DNR status.
[2019-11-25] MEDS: niCARdipine 20 MG/200 ML 20 MG/200 ML BAG 50 MG IV CONT ×2 (15:05→19:08)
[2019-11-25] MEDS: POTASSIUM CHLORIDE 20 MEQ PACKET (FOR LIQUID) 40 MEQ PO (17:13)
[2019-11-25 20:18] LABS: Add Urine Microscopic? YES; Appearance Urine Clear (Clear); Bilirubin Urine Negative (Negative); Blood Urine 1+ (Negative); Color Urine Colorless (Yellow); Glucose Urine UA Negative (Negative); Ketones Urine Negative (Negative); Leukocyte Esterase Ur Negative LEU/UL (NEGATIVE); Nitrate Urine Negative (Negative); Protein Urine Negative (Negative); RBC Urine 0-2 /hpf (0-2); Specific Grav Ur 1.012 (1.001-1.035); Urobilinogen Urine Negative mg/dL (<2.0); WBC Urine 0-3 /hpf (0-3)
[2019-11-25 23:22] LABS: Glucose Point of Care 92 (65-105)
[2019-11-26] VITALS (21 sets, daily range): BP systolic 112–150; BP diastolic 66–86; PULSE 68–113; RESP 11–22; TEMP 36.4–37.5; O2SAT 95–100
[2019-11-26] MEDS: niCARdipine 20 MG/200 ML 20 MG/200 ML BAG 25 MG IV CONT ×2 (02:38→10:27)
[2019-11-26] MEDS: RAPID SEQUENCE INTUBATION KIT 1 EACH (02:39)
--- NOTE | 2019-11-26 02:54 | P.PCNBED_ITS ---
Procedures Intubation: Intubation Date: 11/26/19 Intubation Time: 02:30 A pre- procedural Time-Out was completed immediately before starting the procedure and confirmed: Patient Identification, Site, Procedure, Patient Position and the Availability of Requisite Equipment: Yes Sedative: versed Mg given: 4 Paralytic: succinylcholine Mg given: 40 Laryngoscope: fiber optic video scope Assist device used: fiber optic device ET tube size: cuffed Tube secured depth (cm): 23 Tube secured location: lips Additional comments: ET tube was exchanged over bougie after the airway was visualized with glide scope to ensure that the 1st ET tube was still within the airway. Due to seizure activity/clonus the patient was repeatedly biting the glide scope and required 2 doses of succinylcholine totaling 40 mg. ET tube advanced easily over the bougie. Placement was confirmed with chest x-ray. ET tube in appropriate place.
[2019-11-26 04:53] LABS: Alveolar/Arterial O2 Gradient 81.6 mmHg; Base Excess ABG 2.6 mEq/l (+/-2.0); Carboxyhemoglobin 0.3 % THb (0-2.0); Fractional Inspired Oxygen 30 %; HCO3 ABG 26.5 mEq/l (22.0-26.0); Methemoglobin ABG 0.4 %THb (0-1.5); Oxygen Content ABG 15.3 %vol (16.0-22.0); Oxyhemoglobin 95.1 % THb (90.0-100.0); PCO2 ABG 38.5 mmHg (35.0-45.0); PO2 ABG 87.1 mmHg (80.0-100.0); Reduced Hemoglobin 4.2 %THb (0-5.0); Total Hemoglobin 11.4 g/dL (12.0-18.0); pH ABG 7.456 (7.350-7.450)
[2019-11-26 04:54] LABS: Device VENTILATOR; Modified Allen's Test Pass; Site Drawn RIGHT RADIAL
[2019-11-26 04:55] LABS: Arterial Blood Gas PEEP 5 cmH2O; Arterial Blood Gas Tidal Volume 400 ml; Arterial Blood Gas Vent Mode CMV; Arterial Blood Gas Ventilator rate 14 /MIN
[2019-11-26 05:05] LABS: Hematocrit 31.6 % (37.0-47.0); Hemoglobin 10.1 g/dL (12.0-15.0); Mean Corpuscular Hemoglobin 28.1 pg (26-34); Mean Corpuscular Volume 87.8 fl (80-100); Mean Platelet Volume 10.6 fl (7.4-10.4); Platelet Count Result 147 k/mm3 (150-375); Red Cell Distribution Width 13.5 % (11.5-14.5); White Blood Count 8.9 K/mm3 (4.5-10.0)
[2019-11-26 05:41] LABS: Blood Urea Nitrogen 4 mg/dL (7-17); Carbon Dioxide 29 mmol/L (22-30); Chloride 102 mmol/L (98-107); Estimated CRCL calculation 185 ml/min; Estimated Glomerular Filt Rate > 60; Glucose 108 mg/dL (65-105); Magnesium 1.7 mg/dL (1.6-2.3); Phosphorus 2.1 mg/dL (2.5-4.5); Potassium 2.8 mmol/L (3.4-5.0); Sodium 137 mmol/L (137-145)
[2019-11-26] MEDS: DESMOPRESSIN ACETATE 4 MCG/ML AMP 2 MCG SUB-Q (06:22)
[2019-11-26] MEDS: POTASSIUM CHLORIDE 20 MEQ PACKET (FOR LIQUID) 40 MEQ FEED TUBE (06:23)
--- NOTE | 2019-11-26 08:56 | PM.IMPN ---
Progress Note: A&P Assessment and Plan (1) Acute respiratory failure: Qualifiers: Respiratory failure complication: hypoxia Qualified Code(s): J96.01 - Acute respiratory failure with hypoxia Code(s): J96.00 - Acute respiratory failure, unspecified whether with hypoxia or hypercapnia Status: Acute Assessment and Plan: Acute respiratory failure requiring intubation. Remains intubated at this time. Ventilator management per ground defence officer. (2) Cardiac arrest: Code(s): I46.9 - Cardiac arrest, cause unspecified Status: Acute Assessment and Plan: S/P [id number] VFib cardiac arrest with presumed down time of 38 minutes. ROSC achieved in the ED. Completed Hypothermia protocol. Appreciate help from ground defence officer and Cardiology. Remains on IV amiodarone. Telemetry reviewed on 11/26/2019 with rate controlled. (3) Anoxic brain damage: Code(s): G93.1 - Anoxic brain damage, not elsewhere classified Status: Acute Assessment and Plan: As above. Concern for anoxic brain injury given the physical findings. CT brain on 11/25/2019 with hypodense bilateral basal ganglia suspicious for anoxic brain injury. EEG on 11/25/2019 severely abnormal with presents of bihemispheric theta and delta activity with sharp complexes raising possibility of hypoxic encephalopathy. Continuing care as noted above. Patient is DNR. Remains on IV Keppra. (4) Cardiomyopathy: Qualifiers: Cardiomyopathy type: unspecified Qualified Code(s): I42.9 - Cardiomyopathy, unspecified Code(s): I42.9 - Cardiomyopathy, unspecified Status: Acute Assessment and Plan: Patient has a history nonischemic cardiomyopathy. She presumably had a normal left heart catheterization in 2018. Echocardiogram here showing EF of 20-25% and grade 1 diastolic dysfunction. Cardiology following as noted above. Now on Coreg and lisinopril per OG. (5) Hypokalemia: Code(s): E87.6 - Hypokalemia Status: Acute Assessment and Plan: Potassium 2.9 today. Replacement given. Will continue to monitor and replace as needed. (6) Pneumothorax: Qualifiers: Encounter type: initial encounter Pneumothorax type: traumatic Qualified Code(s): S27.0XXA - Traumatic pneumothorax, initial encounter Code(s): J93.9 - Pneumothorax, unspecified Status: Acute Assessment and Plan: Tension pneumothorax probably related to the CPR performed in the field. Right sided Chest Tube remains in place. General surgery following and appreciate input. (7) Hyperammonemia: Code(s): E72.20 - Disorder of urea cycle metabolism, unspecified Status: Acute Assessment and Plan: Ammonia level 57. Probably related to the shock. Repeat Ammonia level negative. Recheck if needed. (8) Elevated troponin: Code(s): R79.89 - Other specified abnormal findings of blood chemistry Status: Acute Assessment and Plan: Troponin peaked at 7.14. Related to VFib arrest. Unlikely she had plaque rupture. Appreciate Cardiology input. (9) Pneumonia: Qualifiers: Laterality: right Lung location: upper lobe of lung Pneumonia type: due to unspecified organism Qualified Code(s): J18.9 - Pneumonia, unspecified organism Code(s): J18.9 - Pneumonia, unspecified organism Status: Acute Assessment and Plan: Concern on admission but chest x-ray does not appear to be consistent with pneumonia. Blood cultures remain negative today. MRSA nasal swab is positive with patient receiving Bactroban. Does remain on IV vancomycin and Zosyn for now. (10) Elevated LFTs: Code(s): R94.5 - Abnormal results of liver function studies Status: Acute Assessment and Plan: LFTs elevated on admission. AST peaked at 355 and ALT 188 but then trended downward. Probably due to shocked liver. Monitor periodically. (11) Hyperglycemia:
[2019-11-26] MEDS: SODIUM CHLORIDE 0.9% IV 1,000 ML 100 ML IV CONT ×2 (09:00→18:29)
[2019-11-26] MEDS: HEPARIN SODIUM 5,000 UNITS/ML VIAL 5000 UNITS SUB-Q ×3 (09:06→23:57)
[2019-11-26] MEDS: MUPIROCIN 2% OINT 22 GM TUBE 1 APPLIC EACH NARE ×2 (09:06→20:15)
[2019-11-26] MEDS: FAMOTIDINE 20 MG/2 ML VIAL IV PUSH ×2 (09:06→20:15)
[2019-11-26] MEDS: levETIRAcetam 500MG/NACL 100ML 500 MG/100 ML BAG 400 MG IVPB ×2 (09:56→20:14)
[2019-11-26] MEDS: AMIODARONE 360 MG/D5W 200 ML 360 MG/200 ML BAG 16.7 MG IV CONT ×2 (10:28→21:17)
--- NOTE | 2019-11-26 11:20 | WPDINTPN ---
Progress Note: A&P Assessment and Plan (1) Acute respiratory failure: Qualifiers: Respiratory failure complication: hypoxia Qualified Code(s): J96.01 - Acute respiratory failure with hypoxia Code(s): J96.00 - Acute respiratory failure, unspecified whether with hypoxia or hypercapnia Status: Acute Assessment and Plan: I will continue mechanical ventilation with lung protective strategies. She is requiring minimal FiO2 and PEEP. Reviewed chest x-ray and ABG today. (2) Anoxic brain damage: Code(s): G93.1 - Anoxic brain damage, not elsewhere classified Status: Acute Assessment and Plan: Clinically this seems to have significant anoxic brain damage. She does not withdraw to pain or follow any commands. EEG showed diffuse slowing . On keppra (3) Pneumothorax: Qualifiers: Pneumothorax type: traumatic Encounter type: initial encounter Qualified Code(s): S27.0XXA - Traumatic pneumothorax, initial encounter Code(s): J93.9 - Pneumothorax, unspecified Status: Acute Assessment and Plan: Chest tube was placed in the emergency department. I did n't see any air leak this morning but I was told she still has intermittent leak Unclear if it is secondary to pressure trauma during intubation and initial mechanical ventilation on route to emergency department or if it is a primary event causing all the rest of the complication. Other possibility can be CPR induced Trauma. Continue chest tube and usual care of the chest tube until she remained intubated. (4) Elevated troponin: Code(s): R79.89 - Other specified abnormal findings of blood chemistry Status: Acute Assessment and Plan: Acute myocardial event versus demand ischemia. troponin peaked at 7.1. There is a downtrend now. Cardiology has evaluated the patient and is not a candidate for any invasive procedure at this time. (5) Cardiomyopathy: Qualifiers: Cardiomyopathy type: unspecified Qualified Code(s): I42.9 - Cardiomyopathy, unspecified Code(s): I42.9 - Cardiomyopathy, unspecified Status: Acute Assessment and Plan: Cardiology recommendation appreciated. Continue amiodarone drip for now to prevent arrythmia If she has meaningful recovery then she may be candidate for ICD placement. Echocardiogram Showing ejection fraction 20-25%. (6) Elevated LFTs: Code(s): R94.5 - Abnormal results of liver function studies Status: Acute Assessment and Plan: Likely secondary to shock liver. Continue to trend LFTs. LFTs are trending down. (7) Hypokalemia: Code(s): E87.6 - Hypokalemia Status: Acute Assessment and Plan: Getting replaced today (8) Cardiac arrest: Code(s): I46.9 - Cardiac arrest, cause unspecified Status: Acute Assessment and Plan: Completed hypothermia protocol. Amio drip for vfib (9) Pneumonia: Qualifiers: Pneumonia type: due to unspecified organism Laterality: right Lung location: upper lobe of lung Qualified Code(s): J18.9 - Pneumonia, unspecified organism Code(s): J18.9 - Pneumonia, unspecified organism Status: Acute Assessment and Plan: No elevated WBC count , cxr with no infiltrates. cx negative so far. unclear source of infection . Will deescalate abx rx as tolerated. (10) Hypophosphatemia: Code(s): E83.39 - Other disorders of phosphorus metabolism Status: Acute Assessment and Plan: Getting replaced today (11) Polyuria: Code(s): R35.8 - Other polyuria Status: Acute Assessment and Plan: UO > 4L over last 24 hours. Overall still positive oin I/O. Will monitor electrolytes. was given desmopressin x1 dose yesterday Additional Plan Tube feeds held due to repeated vomiting. D/w mother and aunt at bedside . Subjective Date/time seen: 11/26/19 11:20 Interval history: 11/26
--- NOTE | 2019-11-26 11:22 | PM.PNGS ---
Progress Note: A&P Assessment and Plan (1) Pneumothorax: Qualifiers: Pneumothorax type: traumatic Encounter type: initial encounter Qualified Code(s): S27.0XXA - Traumatic pneumothorax, initial encounter Code(s): J93.9 - Pneumothorax, unspecified Status: Acute Assessment and Plan: CXR shows small right pneumothorax. Persistent air leak. Continue to monitor chest tube until while on positive pressure ventilation. (2) Acute respiratory failure: Qualifiers: Respiratory failure complication: hypoxia Qualified Code(s): J96.01 - Acute respiratory failure with hypoxia Code(s): J96.00 - Acute respiratory failure, unspecified whether with hypoxia or hypercapnia Status: Acute Assessment and Plan: Patient on mechanical ventilator. (3) Anoxic brain damage: Code(s): G93.1 - Anoxic brain damage, not elsewhere classified Status: Acute Assessment and Plan: Neurology recommendations and interpretation of the EEG noted. Overall prognosis poor. (4) Cardiac arrest: Code(s): I46.9 - Cardiac arrest, cause unspecified Status: Acute Subjective Subjective Date/Time Seen: 11/26/19 11:22 Interval history: Patient seen and examined. Patient intubated and on mechanical ventilator. Patient's mother and aunt at the bedside today. Spoke to the jet blade polisher, who states family is giving the patient a few days after rewarming and neuro testing prior to making a definitive decision on plan of care. Per the nurse, the patient had an episode of vomiting overnight and had to have her ET tube replaced by the hospitalist due to ruptured cuff. Per the nurse, patient has vomited 3 times this morning and tube feedings were held at that time. She also states after the vomiting she had to reinforce the chest tube dressing. No other concerns with the chest tube. Review of Systems Review of Systems: ROS unobtainable: unobtainable due to endotracheal tube and unobtainable due to mental status Exam Const: General: other ( intubated) Orientation/consciousness: Other orientation findings (unresponsive) Resp: Effort & Inspection: other (full ventilatory support) Auscultation: rhonchi Other: Right chest tube in place with persistent air leak. Dressing clean dry and intact. Tubings checked and are secured. Neuro: Other: Patient opens eyes to deep stimulation but does not follow commands or have any purposeful movement. Does not withdraw to pain. Objective Data Vital Signs Vital Signs: Vital Signs - 24 hr 11/25/19 12:00 11/25/19 12:01 11/25/19 14:00 Temperature 37.8 C H 37.4 C Pulse Rate 87 85 45 L Respiratory Rate 17 17 Blood Pressure 157/77 H 156/79 H Pulse Oximetry 98 100 100 11/25/19 14:32 11/25/19 16:00 11/25/19 17:36 Temperature 37.4 C Pulse Rate 81 78 82 Respiratory Rate 14 Blood Pressure 145/87 H Pulse Oximetry 98 100 99 11/25/19 18:00 11/25/19 20:00 11/25/19 20:22 Temperature 37.3 C Pulse Rate 103 H 76 86 Respiratory Rate 16 16 Blood Pressure 157/77 H 132/72 Pulse Oximetry 97 97 97 11/25/19 22:00 11/25/19 23:07 11/25/19 23:50 Temperature 37.8 C H 37.4 C Pulse Rate 96 83 Respiratory Rate 16 Blood Pressure 141/71 H Pulse Oximetry 99 99 11/26/19 00:00 11/26/19 02:00 11/26/19 02:41 Temperature 37.5 C Pulse Rate 76 77 82 Respiratory Rate 18 14 Blood Pressure 150/70 H 122/70 Pulse Oximetry 100 98 95 11/26/19 04:00 11/26/19 05:24 11/26/19 06:00 Temperature 37.2 C Pulse Rate 76 77 89 Respiratory Rate 16 22 H Blood Pressure 129/73 133/75 Pulse Oximetry 98 100 98 11/26/19 09:25 Temperature Pulse Rate 94 Respiratory Rate Blood Pressure Pulse Oximetry 98 Intake/Output Intake/Output: Intake & Output 11/23/19 11/24/19 11/25/19 11/26/19 23:59 23:59 23:59 23:59 Intake Total 4795 6534.7 5650.6 1700 Output Total 4930 923 7685 4500 Balance -135 5611.7 -2034.4 -2800 Meds/Results
[2019-11-26] MEDS: ONDANSETRON INJ 4 MG/2 ML VIAL IV PUSH (11:55)
--- NOTE | 2019-11-26 12:48 | WPDNEUROPN ---
Progress Note: A&P Additional Plan comatose with abnormal eeg clinically more alert moving right upperextemity,doesnot follow plantars noresponse,discussed with family prognosis poor Review of Systems Review of Systems: All systems reviewed & are unremarkable except as noted in HPI and below Exam Const: Nutritional Appearance: obese Limitations: altered mental status HENMT: Head: normocephalic Neck: Neck: full ROM Resp: Effort & Inspection: abnormal respiratory pattern Cardio: Rate: regular rate Rhythm: regular rhythm GI: Auscultation: normal bowel sounds Neuro: Comatose Patient: response to noxious stimuli present Doll's-Eye Reflex: Absent Pupils: Sluggish: right, left and bilateral Objective Data Vital Signs Vital Signs: Vital Signs - 24 hr 11/25/19 14:00 11/25/19 14:32 11/25/19 16:00 Temperature 37.4 C 37.4 C Pulse Rate 45 L 81 78 Respiratory Rate 17 14 Blood Pressure 156/79 H 145/87 H Pulse Oximetry 100 98 100 11/25/19 17:36 11/25/19 18:00 11/25/19 20:00 Temperature 37.3 C Pulse Rate 82 103 H 76 Respiratory Rate 16 16 Blood Pressure 157/77 H 132/72 Pulse Oximetry 99 97 97 11/25/19 20:22 11/25/19 22:00 11/25/19 23:07 Temperature 37.8 C H Pulse Rate 86 96 83 Respiratory Rate 16 Blood Pressure 141/71 H Pulse Oximetry 97 99 99 11/25/19 23:50 11/26/19 00:00 11/26/19 02:00 Temperature 37.4 C 37.5 C Pulse Rate 76 77 Respiratory Rate 18 14 Blood Pressure 150/70 H 122/70 Pulse Oximetry 100 98 11/26/19 02:41 11/26/19 04:00 11/26/19 05:24 Temperature 37.2 C Pulse Rate 82 76 77 Respiratory Rate 16 Blood Pressure 129/73 Pulse Oximetry 95 98 100 11/26/19 06:00 11/26/19 09:25 Temperature Pulse Rate 89 94 Respiratory Rate 22 H Blood Pressure 133/75 Pulse Oximetry 98 98 Intake/Output Intake/Output: Intake & Output 11/23/19 11/24/19 11/25/19 11/26/19 23:59 23:59 23:59 23:59 Intake Total 9843 6580.7 5650.6 1700 Output Total 4930 923 7696 4500 Balance -135 5611.7 -7444.4 -4950 Meds/Results Medications: Active Medications Generic Name Dose Route Start Last Admin Trade Name Freq PRN Reason Stop Dose Admin Famotidine 20 mg 11/23/19 09:00 11/26/19 09:06 Pepcid Iv IV PUSH 20 mg Q12HR YESSY Administration Heparin Sodium (Porcine) 5,000 units 11/23/19 09:00 11/26/19 09:06 Heparin Sodium SUB-Q 5,000 units Q8H YESSY Administration Amiodarone HCl/Dextrose 360 mg in 200 mls @ 16.667 mls/hr 11/23/19 02:56 11/26/19 10:28 Nexterone 360 Mg/D5w 200 Ml IV CONT 0.5 mg/min .Q12H YESSY 16.7 mls/hr Administration 0.5 MG/MIN Propofol 100 mls @ 0 mls/hr 11/23/19 01:55 11/25/19 07:15 Diprivan IV CONT 0 mcg/kg/min .Q0M YESSY 0 mls/hr Titration Protocol 0 MCG/KG/MIN Piperacillin/Tazobactam/Dextrose 3.375 gm in 50 mls @ 100 mls/hr 11/23/19 09:00 11/26/19 10:29 Zosyn 3.375 Gm/D5w 50ml Pm IVPB Infused Q6H YESSY Infusion Vancomycin HCl 1,500 mg in 500 mls @ 333.333 mls/hr 11/23/19 10:00 11/26/19 10:30 Vancomycin 1,500 Mg/D5w 500 Ml IVPB 333 mls/hr Q12H YESSY Administration Levetiracetam 500 mg in 100 mls @ 400 mls/hr 11/24/19 09:00 11/26/19 09:56 Keppra Iv IVPB 100 mls/hr Q12HR YESSY Administration Sodium Chloride 1,000 mls @ 100 mls/hr 11/24/19 13:05 11/26/19 09:00 Normal Saline Iv IV CONT 100 mls/hr .Q10H YESSY Administration Nicardipine/Sodium Chloride 20 mg in 200 mls @ 25 mls/hr 11/25/19 15:00 11/26/19 10:27 Cardene 20 Mg/200 Ml Ns IV CONT 2.5 mg/hr .Q8H YESSY 25 mls/hr Administration Protocol 2.5 MG/HR Labetalol HCl 10 mg 11/24/19 19:37 11/24/19 20:06 Normodyne Inj IV PUSH 10 mg Q6H PRN Administration Hypertension Multi-Ingred Cream/Lotion/Oil/Oint 1 applic 11/23/19 09:00 11/26/19 09:07 Lubrifresh Pm Eye Ointment EACH EYE 1 applic Q12HR YESSY Administration Mupirocin 1 applic 11/24/19 21:00 11/26/19 09:06
--- NOTE | 2019-11-26 13:09 | PCDIET ---
Nutrition Follow-Up Complete: Nutrition Diagnosis: Inadequate oral intake related to oral intubation as evidenced by NPO status. Nutrition Goal: Patient to meet estimated nutritional needs. Goal not met. Tube feedings held due to emesis overnight, causing ET cuff to blow and reintubation; feeding tube currently to suction following subsequent emesis. Last recorded weight is 95.8 kg which is stable. I/O negative. Bowel Motility: +Bowel sounds. +BM today. Labs Reviewed: Glu (108), BUN (4), Cr (0.4), K (2.8), Ca (8.0), PO4 (2.1) Meds Noted: Pepcid, Nicardipine, Zosyn, Vancomycin, NS @ 100mL/hr Additional Notes: s/p KCl. Generalized edema reported. Chest tube in place. No reported pressure sores. Recommend resuming tube feedings once GI output decreased. Recommend replacing K+ and PO4 as medically appropriate. Nutrition Monitoring and Evaluation: Follow up every Monday/Monday. Follow daily in ICU rounds.
[2019-11-26] MEDS: carvediloL 6.25 MG TABLET FEED TUBE ×2 (13:52→20:16)
[2019-11-26] MEDS: lisinopriL 20 MG TABLET 40 MG FEED TUBE (13:52)
[2019-11-26 13:55] LABS: Albumin Level 3.4 g/dL (3.5-5.1); Blood Urea Nitrogen 3 mg/dL (7-17); Calcium 8.1 mg/dL (8.4-10.2); Carbon Dioxide 28 mmol/L (22-30); Chloride 97 mmol/L (98-107); Estimated CRCL calculation 185 ml/min; Estimated Glomerular Filt Rate > 60; Glucose 114 mg/dL (65-105); Magnesium 1.7 mg/dL (1.6-2.3); Phosphorus 1.8 mg/dL (2.5-4.5); Potassium 2.9 mmol/L (3.4-5.0); Sodium 131 mmol/L (137-145)
[2019-11-26] MEDS: MAGNESIUM SULF 2 GM/WATER 50ML 2 GM/50 ML BAG IVPB (15:35)
[2019-11-26] MEDS: KCL 20 MEQ/SW 100 ML 100 ML 50 MEQ IVPB (15:35)
[2019-11-26 15:41] LABS: Glucose Point of Care 106 (65-105)
[2019-11-26] MEDS: POTASSIUM PHOS,M-BASIC-D-BASIC 20 MMOL in SODIUM CHLORIDE 0.9% IV 250 ML 62.5 MMOL IVPB (17:10)
--- NOTE | 2019-11-26 18:16 | PM.PNCARD ---
Progress Note: A&P Assessment and Plan (1) Cardiomyopathy: Qualifiers: Cardiomyopathy type: unspecified Qualified Code(s): I42.9 - Cardiomyopathy, unspecified Code(s): I42.9 - Cardiomyopathy, unspecified Status: Acute Assessment and Plan: Known severe cardiomyopathy. Previous cardiac catheterization reportedly showed no coronary disease. 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 Echo shows ejection fraction 20-25% Started on carvedilol and lisinopril. Continue supportive care (2) Cardiac arrest: Code(s): I46.9 - Cardiac arrest, cause unspecified Status: Acute Assessment and Plan: Because of bigeminy, nausea and vomiting, and hypokalemia we will continue IV amiodarone and re-evaluate tomorrow, possibly switch to p.o. tomorrow or discontinue completely. ____ (3) Hypokalemia: Code(s): E87.6 - Hypokalemia Status: Acute Assessment and Plan: Was again running low. (4) Hypomagnesemia: Code(s): E83.42 - Hypomagnesemia Status: Acute Assessment and Plan: Corrected (5) Encephalopathy: Code(s): G93.40 - Encephalopathy, unspecified Status: Acute Assessment and Plan: Appears to have severe anoxic encephalopathy. Neurologist thinks the prognosis is poor for recovery. Continue supportive care (6) Elevated troponin: Code(s): R79.89 - Other specified abnormal findings of blood chemistry Status: Acute Assessment and Plan: Liikely related to prolonged arrest (7) Pneumothorax: Qualifiers: Pneumothorax type: traumatic Encounter type: initial encounter Qualified Code(s): S27.0XXA - Traumatic pneumothorax, initial encounter Code(s): J93.9 - Pneumothorax, unspecified Status: Acute Assessment and Plan: Management per ethanol quality leader (8) Elevated LFTs: Code(s): R94.5 - Abnormal results of liver function studies Status: Acute Assessment and Plan: Related to shock liver: Improved Subjective Date/time seen: 11/26/19 18:16 Interval history: Follow-up for: History of NICMP admitted after sustaining an [id number] cardiac arrest. Date of service: 11/26/2019 Patient remains on the ventilator with FiO2 20%, tube feedings held temporarily because of vomiting. Not requiring any pressors. IV nicardipine change to carvedilol and lisinopril. Still on IV amiodarone. Telemetry shows PVCs and occasional ventricular bigeminy. Has had potassium of 2.8 this morning. Receiving 2nd bag of KCl 40 mEq and also had 40 mg events per feeding tube. Also had IV magnesium. Per nurses, patient sometimes withdraws to pain and has a sluggish light reflex. Review of Systems Review of Systems: ROS unobtainable: unobtainable due to endotracheal tube and unobtainable due to mental status Constitutional: Constitutional: Reports as per HPI ENT: Reports as per HPI Cardiovascular: Cardiovascular: Reports as per HPI Respiratory: Respiratory: Reports as per HPI Gastrointestinal: Gastrointestinal: Reports as per HPI Neurologic: Reports as per HPI Exam Narrative: Exam Narrative: Young woman who appears critically ill, multiple lines and tubes, intubated. Unresponsive to name, some withdrawal to endotracheal suctioning and then opens eyes transiently. Const: General: no acute distress HENMT: Mouth: Yes Abnormal oral and palatal mucosa present Eyes: General: appearance normal, both eyes and all related structures Neck: Neck: supple Resp: Auscultation: clear to auscultation bilaterally Cardio: Rate: regular rate Rhythm: regular rhythm GI: Auscultation: bowels sounds not normal Other: Diminished breath sounds, soft and nontender. Urinary Cath
[2019-11-26 18:33] LABS: Glucose Point of Care 108 (65-105)
[2019-11-26 23:57] LABS: Glucose Point of Care 106 (65-105)
[2019-11-27] VITALS (23 sets, daily range): BP systolic 100–198; BP diastolic 55–97; PULSE 60–102; RESP 12–19; TEMP 37.3–37.6; O2SAT 94–100
[2019-11-27] MEDS: SODIUM CHLORIDE 0.9% IV 1,000 ML 100 ML IV CONT (03:56)
[2019-11-27 05:00] LABS: Alveolar/Arterial O2 Gradient 63.6 mmHg; Carboxyhemoglobin 0.2 % THb (0-2.0); Fractional Inspired Oxygen 30 %; HCO3 ABG 28.5 mEq/l (22.0-26.0); Methemoglobin ABG 0.3 %THb (0-1.5); Oxygen Content ABG 15.3 %vol (16.0-22.0); Oxygen Saturation ABG 97.8 % (95.0-100.0); Oxyhemoglobin 96.2 % THb (90.0-100.0); PCO2 ABG 42.7 mmHg (35.0-45.0); PO2 ABG 100.1 mmHg (80.0-100.0); PO2 FiO2 Ratio Arterial Blood 3.34 %; Reduced Hemoglobin 3.3 %THb (0-5.0); Total Hemoglobin 11.2 g/dL (12.0-18.0); pH ABG 7.443 (7.350-7.450)
[2019-11-27 05:01] LABS: Device VENTILATOR; Modified Allen's Test Pass; Site Drawn RIGHT RADIAL
[2019-11-27 05:02] LABS: Arterial Blood Gas PEEP 5 cmH2O; Arterial Blood Gas Tidal Volume 400 ml; Arterial Blood Gas Vent Mode CMV; Arterial Blood Gas Ventilator rate 14 /MIN
[2019-11-27 05:10] LABS: Glucose Point of Care 100 (65-105)
[2019-11-27 05:14] LABS: Hematocrit 30.9 % (37.0-47.0); Mean Corpuscular HGB Conc 32.4 g/dl (32-36); Mean Corpuscular Hemoglobin 28.2 pg (26-34); Mean Corpuscular Volume 87.3 fl (80-100); Mean Platelet Volume 10.4 fl (7.4-10.4); Platelet Count Result 177 k/mm3 (150-375); Red Blood Count 3.54 M/mm3 (4.2-5.4); Red Cell Distribution Width 13.3 % (11.5-14.5); White Blood Count 8.1 K/mm3 (4.5-10.0)
[2019-11-27 06:03] LABS: Blood Urea Nitrogen 6 mg/dL (7-17); Calcium 8.3 mg/dL (8.4-10.2); Carbon Dioxide 28 mmol/L (22-30); Chloride 101 mmol/L (98-107); Estimated CRCL calculation 151 ml/min; Estimated Glomerular Filt Rate > 60; Glucose 123 mg/dL (65-105); Phosphorus 1.9 mg/dL (2.5-4.5); Potassium 2.8 mmol/L (3.4-5.0); Sodium 135 mmol/L (137-145)
[2019-11-27] MEDS: lisinopriL 20 MG TABLET 40 MG FEED TUBE (08:49)
[2019-11-27] MEDS: POTASSIUM CHLORIDE 20 MEQ PACKET (FOR LIQUID) 40 MEQ FEED TUBE (08:49)
[2019-11-27] MEDS: carvediloL 6.25 MG TABLET FEED TUBE ×2 (08:49→20:13)
[2019-11-27] MEDS: levETIRAcetam 500MG/NACL 100ML 500 MG/100 ML BAG 400 MG IVPB ×2 (08:50→20:24)
[2019-11-27] MEDS: KCL 20 MEQ/SW 100 ML 100 ML 50 MEQ IVPB (08:51)
[2019-11-27] MEDS: MUPIROCIN 2% OINT 22 GM TUBE 1 APPLIC EACH NARE ×2 (08:53→20:15)
[2019-11-27] MEDS: FAMOTIDINE 20 MG/2 ML VIAL IV PUSH ×2 (08:53→20:14)
[2019-11-27] MEDS: HEPARIN SODIUM 5,000 UNITS/ML VIAL 5000 UNITS SUB-Q ×2 (08:53→18:05)
[2019-11-27] MEDS: AMIODARONE 360 MG/D5W 200 ML 360 MG/200 ML BAG 16.7 MG IV CONT ×2 (09:10→21:01)
--- NOTE | 2019-11-27 09:48 | WPDINTPN ---
Progress Note: A&P Assessment and Plan (1) Acute respiratory failure: Qualifiers: Respiratory failure complication: hypoxia Qualified Code(s): J96.01 - Acute respiratory failure with hypoxia Code(s): J96.00 - Acute respiratory failure, unspecified whether with hypoxia or hypercapnia Status: Acute Assessment and Plan: I will continue mechanical ventilation with lung protective strategies. She is requiring minimal FiO2 and PEEP. Reviewed chest x-ray and ABG today. placed on PSV and tolerating it well (2) Anoxic brain damage: Code(s): G93.1 - Anoxic brain damage, not elsewhere classified Status: Acute Assessment and Plan: Clinically this seems to have significant anoxic brain damage. She does not follow any commands but withdraws LE to pain and decorticate posturing noted b/l UE. EEG showed diffuse slowing . On keppra (3) Pneumothorax: Qualifiers: Pneumothorax type: traumatic Encounter type: initial encounter Qualified Code(s): S27.0XXA - Traumatic pneumothorax, initial encounter Code(s): J93.9 - Pneumothorax, unspecified Status: Acute Assessment and Plan: Chest tube was placed in the emergency department. Unclear if it is secondary to pressure trauma during intubation and initial mechanical ventilation on route to emergency department or if it is a primary event causing all the rest of the complication. Other possibility can be CPR induced Trauma. Continue chest tube and usual care of the chest tube until she remained intubated. (4) Elevated troponin: Code(s): R79.89 - Other specified abnormal findings of blood chemistry Status: Acute Assessment and Plan: Acute myocardial event versus demand ischemia. troponin peaked at 7.1. There is a downtrend now. Cardiology has evaluated the patient and is not a candidate for any invasive procedure at this time. (5) Cardiomyopathy: Qualifiers: Cardiomyopathy type: unspecified Qualified Code(s): I42.9 - Cardiomyopathy, unspecified Code(s): I42.9 - Cardiomyopathy, unspecified Status: Acute Assessment and Plan: Cardiology recommendation appreciated. Continue amiodarone drip for now to prevent arrythmia If she has meaningful recovery then she may be candidate for ICD placement. Echocardiogram Showing ejection fraction 20-25%. started on coreg adn lisinorpil (6) Elevated LFTs: Code(s): R94.5 - Abnormal results of liver function studies Status: Acute Assessment and Plan: Likely secondary to shock liver. Continue to trend LFTs. LFTs are trending down. (7) Hypokalemia: Code(s): E87.6 - Hypokalemia Status: Acute Assessment and Plan: Getting replaced today (8) Cardiac arrest: Code(s): I46.9 - Cardiac arrest, cause unspecified Status: Acute Assessment and Plan: Completed hypothermia protocol. Amio drip for vfib (9) Pneumonia: Qualifiers: Pneumonia type: due to unspecified organism Laterality: right Lung location: upper lobe of lung Qualified Code(s): J18.9 - Pneumonia, unspecified organism Code(s): J18.9 - Pneumonia, unspecified organism Status: Acute Assessment and Plan: No elevated WBC count , cxr with no infiltrates. cx negative so far. unclear source of infection . Will deescalate abx rx as tolerated. On zosyn (10) Hypophosphatemia: Code(s): E83.39 - Other disorders of phosphorus metabolism Status: Acute Assessment and Plan: Getting replaced today (11) Polyuria: Code(s): R35.8 - Other polyuria Status: Acute Assessment and Plan: UO 2L over last 24 hours. Overall still positive oin I/O. Will monitor electrolytes. Additional Plan Tube feeds held yesterday due to repeated vomiting. however restarted at a lower dose D/w mother and aunt at bedside . Subjective Date/time see
--- NOTE | 2019-11-27 10:01 | PM.IMPN ---
Progress Note: A&P Assessment and Plan (1) Acute respiratory failure: Qualifiers: Respiratory failure complication: hypoxia Qualified Code(s): J96.01 - Acute respiratory failure with hypoxia Code(s): J96.00 - Acute respiratory failure, unspecified whether with hypoxia or hypercapnia Status: Acute Assessment and Plan: Acute respiratory failure requiring intubation. Remains intubated at this time but no longer sedated. Ventilator management per shake cutter. Discussed with shake cutter today. Will most likely do trial extubation. Will need to discuss with family their overall wishes. (2) Cardiac arrest: Code(s): I46.9 - Cardiac arrest, cause unspecified Status: Acute Assessment and Plan: S/P [id number] VFib cardiac arrest with presumed down time of 38 minutes. ROSC achieved in the ED. Completed hypothermia protocol. Appreciate help from shake cutter and Cardiology. Remains on IV amiodarone. Telemetry reviewed on 11/27/2019 with sinus rhythm with rate controlled. Will continue to monitor. (3) Anoxic brain damage: Code(s): G93.1 - Anoxic brain damage, not elsewhere classified Status: Acute Assessment and Plan: Result of cardiac arrest. CT brain on 11/25/2019 with hypodense bilateral basal ganglia suspicious for anoxic brain injury. EEG on 11/25/2019 severely abnormal with presents of bihemispheric theta and delta activity with sharp complexes raising possibility of hypoxic encephalopathy. Receiving tube feedings through OG currently. Discussed with shake cutter. Will most likely need PEG. Patient is currently DNR. She does remain on IV Keppra. Will continue to monitor. (4) Cardiomyopathy: Qualifiers: Cardiomyopathy type: unspecified Qualified Code(s): I42.9 - Cardiomyopathy, unspecified Code(s): I42.9 - Cardiomyopathy, unspecified Status: Acute Assessment and Plan: Patient has a history nonischemic cardiomyopathy. She presumably had a normal left heart catheterization in 2018. Echocardiogram here showing EF of 20-25% and grade 1 diastolic dysfunction. Cardiology following as noted above. Remains on Coreg and lisinopril per OG. (5) Hypokalemia: Code(s): E87.6 - Hypokalemia Status: Acute Assessment and Plan: Potassium 2.9 again today. IV replacement being given. Will continue to monitor and replace as needed. (6) Pneumothorax: Qualifiers: Pneumothorax type: traumatic Encounter type: initial encounter Qualified Code(s): S27.0XXA - Traumatic pneumothorax, initial encounter Code(s): J93.9 - Pneumothorax, unspecified Status: Acute Assessment and Plan: Tension pneumothorax probably related to the CPR performed in the field. Right sided Chest Tube remains in place replaced today per surgery. General surgery following and appreciate input. (7) Hyperammonemia: Code(s): E72.20 - Disorder of urea cycle metabolism, unspecified Status: Acute Assessment and Plan: Ammonia level 57. Probably related to the shock. Repeat Ammonia level negative. Recheck if needed. (8) Elevated troponin: Code(s): R79.89 - Other specified abnormal findings of blood chemistry Status: Acute Assessment and Plan: Troponin peaked at 7.14. Related to VFib arrest. Unlikely she had plaque rupture. Appreciate Cardiology input. No additional evaluation with current situation. (9) Pneumonia: Qualifiers: Pneumonia type: due to unspecified organism Laterality: right Lung location: upper lobe of lung Qualified Code(s): J18.9 - Pneumonia, unspecified organism Code(s): J18.9 - Pneumonia, unspecified organism Status: Acute Assessment and Plan: Ruled out. Concern on admission but chest x-ray and clinical findings not consistent with pneumonia. Blood cultures remain negative. Does remain on IV vancomycin and Zosyn star
--- NOTE | 2019-11-27 10:39 | PCDIET ---
ICU Rounding Note: Tube feedings restarted and tolerated thus far (Vital 1.2 @ 20mL/hr). MD ordered increase toward goal rate and change to 1.5cal/mL formula. MD agreeable to 45mL/hr rate of Vital 1.5 which will provide 1485kcal, 67g protein and 756mL free water. Would continue 30mL water flush every 4 hours. Last recorded weight is 95.6kg which is stable. Bowel Motility: +BMs. Labs Reviewed: Glu (123), BUN (6), Cr (0.5), Na (135), K (2.8), Ca (8.3), PO4 (1.9), pCO2 (100) Meds Noted: Amiodarone, Pepcid, Nicardipine, Zosyn, Vancomycin, KCl, KPhos, NS @ 100mL/hr Additional Notes: >7.5L urine output overnight; patient remains edematous. Undergoing SBT today. No documented skin breakdown. Following daily in ICU rounds. Assessing/reassessing every Monday/Monday.
--- NOTE | 2019-11-27 10:42 | PM.PNGS ---
Progress Note: A&P Assessment and Plan (1) Pneumothorax: Qualifiers: Pneumothorax type: traumatic Encounter type: initial encounter Qualified Code(s): S27.0XXA - Traumatic pneumothorax, initial encounter Code(s): J93.9 - Pneumothorax, unspecified Status: Acute Assessment and Plan: CXR this morning shows tiny right pneumothorax with some improvement. No air leak today. Continue to monitor chest tube while on positive pressure ventilation. (2) Acute respiratory failure: Qualifiers: Respiratory failure complication: hypoxia Qualified Code(s): J96.01 - Acute respiratory failure with hypoxia Code(s): J96.00 - Acute respiratory failure, unspecified whether with hypoxia or hypercapnia Status: Acute Assessment and Plan: Patient on mechanical ventilator. (3) Anoxic brain damage: Code(s): G93.1 - Anoxic brain damage, not elsewhere classified Status: Acute (4) Cardiac arrest: Code(s): I46.9 - Cardiac arrest, cause unspecified Status: Acute Subjective Subjective Date/Time Seen: 11/27/19 09:15 Interval history: Patient still intubated. Not on any sedation. Currently on a spontaneous breathing trial per the nurse. Nurse denies any issues with the chest tube overnight. Does state she had to reinforce this again yesterday and the patient has been diaphoretic so the tape has been peeling back. No family at the bedside today. Review of Systems Review of Systems: ROS unobtainable: unobtainable due to endotracheal tube and unobtainable due to mental status Exam Const: General: other ( intubated) Resp: Effort & Inspection: other (full ventilatory support) Other: Right chest tube in place with saturated dressing and the dressing not intact on the edges. I changed the dressing completely and applied a new occlusive dressing. Following the dressing change there was no air leak on exam. Dressing now clean dry and intact. Neuro: Other: Patient opens eyes to voice but does not track you or follow commands or have any purposeful movement. Objective Data Vital Signs Vital Signs: Vital Signs - 24 hr 11/26/19 11:50 11/26/19 12:00 11/26/19 13:52 Temperature 37.0 C Pulse Rate 77 88 80 Respiratory Rate 20 Blood Pressure 142/75 H Pulse Oximetry 99 99 11/26/19 14:00 11/26/19 14:10 11/26/19 16:00 Temperature 37.2 C Pulse Rate 93 92 83 Respiratory Rate 15 16 Blood Pressure 137/77 118/66 Pulse Oximetry 100 99 100 11/26/19 17:00 11/26/19 18:00 11/26/19 20:00 Temperature 37.3 C Pulse Rate 68 78 83 Respiratory Rate 13 14 Blood Pressure 120/66 146/82 H Pulse Oximetry 100 100 100 11/26/19 20:16 11/26/19 22:00 11/26/19 23:35 Temperature Pulse Rate 73 78 84 Respiratory Rate 18 Blood Pressure 141/78 H Pulse Oximetry 100 100 11/27/19 00:00 11/27/19 02:00 11/27/19 02:20 Temperature 37.4 C Pulse Rate 84 68 85 Respiratory Rate 15 18 Blood Pressure 155/86 H 134/73 Pulse Oximetry 100 100 99 11/27/19 04:00 11/27/19 04:44 11/27/19 06:00 Temperature 37.6 C Pulse Rate 83 76 89 Respiratory Rate 16 16 Blood Pressure 141/78 H 136/72 Pulse Oximetry 100 99 99 11/27/19 07:55 11/27/19 08:49 Temperature Pulse Rate 102 H 67 Respiratory Rate Blood Pressure Pulse Oximetry 97 Intake/Output Intake/Output: Intake & Output 11/24/19 11/25/19 11/26/19 11/27/19 23:59 23:59 23:59 23:59 Intake Total 6534.7 5650.6 4628 2252 Output Total 923 7685 7568 2530 Balance 5611.7 -2034.4 -2940 -278 Meds/Results Medications: Active Medications Generic Name Dose Route Start Last Admin Trade Name Freq PRN Reason Stop Dose Admin Carvedilol 6.25 mg 11/26/19 13:15 11/27/19 08:49 Coreg FEED TUBE 6.25 mg Q12HR YESSY Administration Famotidine 20 mg 11/23/19 09:00 11/27/19 08:53 Pepcid Iv IV PUSH 20 mg Q12HR YESSY Administration Heparin Sodium (Porcine) 5,000 units 11/23/19 09:00 01
[2019-11-27] MEDS: POTASSIUM PHOS,M-BASIC-D-BASIC 20 MMOL in SODIUM CHLORIDE 0.9% IV 250 ML 62.5 MMOL IVPB (10:50)
--- NOTE | 2019-11-27 11:41 | PM.EVENT ---
Event Note Event Note Event Note: I spoke to mother and daughter at bedside . I have informed her that patient is on breathing trial and able to breath on her own . Her cxr is clear and she does not appear to have much secretions . Hence she may be extubateable but it is hard to say how well and for how long she will be able to protect her airway . she does have a strong cough but she does not follow any command . Patient is withdrawing to pain in LLE and has decorticate posturing of b/l UE. Family is sure that they want patient to be DNR and once the tube comes out they donot want reintubation . Hence they would like to wait till tomorrow for extubation as more family will be around . They are planning to come around noon to be at her side prior to extubation . If she does do well with extubation they they will again talk about weather to get PEG placed or not . They donot want to decide anything about PEG yet .
--- NOTE | 2019-11-27 12:58 | PM.PNCARD ---
Progress Note: A&P Assessment and Plan (1) Cardiomyopathy: Qualifiers: Cardiomyopathy type: unspecified Qualified Code(s): I42.9 - Cardiomyopathy, unspecified Code(s): I42.9 - Cardiomyopathy, unspecified Status: Acute Assessment and Plan: Known severe nonischemic cardiomyopathy. 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 Continue supportive care (2) Cardiac arrest: Code(s): I46.9 - Cardiac arrest, cause unspecified Status: Acute Assessment and Plan: Because of bigeminy, and hypokalemia we will continue IV amiodarone and re-evaluate tomorrow, possibly switch to p.o. tomorrow . ____ (3) Hypokalemia: Code(s): E87.6 - Hypokalemia Status: Acute Assessment and Plan: Was again running low, supplemented with p.o. and IV. . (4) Hypomagnesemia: Code(s): E83.42 - Hypomagnesemia Status: Acute Assessment and Plan: Corrected (5) Encephalopathy: Code(s): G93.40 - Encephalopathy, unspecified Status: Acute Assessment and Plan: Appears to have severe anoxic encephalopathy. Neurologist thinks the prognosis is poor for recovery. Continue supportive care (6) Elevated troponin: Code(s): R79.89 - Other specified abnormal findings of blood chemistry Status: Acute Assessment and Plan: Liikely related to prolonged arrest (7) Pneumothorax: Qualifiers: Pneumothorax type: traumatic Encounter type: initial encounter Qualified Code(s): S27.0XXA - Traumatic pneumothorax, initial encounter Code(s): J93.9 - Pneumothorax, unspecified Status: Acute Assessment and Plan: Management per marine extension agent Subjective Date/time seen: 11/27/19 12:58 Interval history: Follow-up for: History of NICMP admitted after sustaining an [id number]-vv-[id number] cardiac arrest. 11/26/2019 visit: Patient remains on the ventilator with FiO2 20%, tube feedings held temporarily because of vomiting. Not requiring any pressors. IV nicardipine change to carvedilol and lisinopril. Still on IV amiodarone. Telemetry shows PVCs and occasional ventricular bigeminy. Has had potassium of 2.8 this morning. Receiving 2nd bag of KCl 40 mEq and also had 40 mg events per feeding tube. Also had IV magnesium. Per nurses, patient sometimes withdraws to pain and has a sluggish light reflex. Date of service 11/27/2019: Patient remains on a ventilator at, tolerating tube feedings better, not requiring pressors. Son IV amiodarone, still with PVCs and occasional bigeminy, still with severe hypokalemia despite multiple doses of potassium yesterday. Still has a chest tube in place. Chest x-ray today showed a small apical pneumo. Per EMR the patient has some decorticate posturing at times and a good cough reflex. Critical care physician discussed with family; the plan is to attempt extubation tomorrow. Patient is a DNR. Review of Systems Review of Systems: ROS unobtainable: unobtainable due to endotracheal tube, unobtainable due to mental condition and unobtainable due to mental status Constitutional: Constitutional: Reports as per HPI (Decorticate posturing noted per staff) and Reports chills ENT: Reports as per HPI Cardiovascular: Cardiovascular: Reports as per HPI (Blood pressure stable) Respiratory: Respiratory: Denies hemoptysis (Remains intubated) Gastrointestinal: Gastrointestinal: Denies hematemesis Genitourinary: Genitourinary: Denies hematuria Integumentary/Breasts: Skin/Breast: Denies wounds Neurologic: Reports as per HPI and Denies behavioral changes Psychiatric: Psychiatric: Reports confusion Endocrine:
[2019-11-27 14:54] LABS: Glucose Point of Care 96 (65-105)
[2019-11-27 18:04] LABS: Glucose Point of Care 99 (65-105)
[2019-11-27] MEDS: LABETALOL HCL INJ 100 MG/20 ML VIAL 10 MG IV PUSH (19:46)
[2019-11-27 22:15] LABS: Vancomycin Trough 7.5 ug/mL (10.0-20.0)
[2019-11-27 23:59] LABS: Glucose Point of Care 104 (65-105)
[2019-11-28] VITALS (25 sets, daily range): BP systolic 128–173; BP diastolic 78–100; PULSE 63–98; RESP 14–28; TEMP 36.6–37.5; O2SAT 93–100
[2019-11-28 01:23] LABS: Add Urine Microscopic? YES; Appearance Urine Clear (Clear); Bilirubin Urine Negative (Negative); Blood Urine 1+ (Negative); Color Urine Straw (Yellow); Glucose Urine UA Negative (Negative); Ketones Urine Negative (Negative); Leukocyte Esterase Ur Negative LEU/UL (Negative); Nitrate Urine Negative (Negative); Protein Urine Negative (Negative); Specific Grav Ur 1.012 (1.001-1.035); Urobilinogen Urine Negative mg/dL (<2.0); WBC Urine 0-3 /hpf
[2019-11-28 01:45] LABS: INR 0.9; Prothrombin Time 11.7 Seconds (11.1-14.7)
[2019-11-28 01:46] LABS: Partial Thromboplastin Time 27.1 SECONDS (22.3-36.8)
[2019-11-28 01:50] LABS: Alanine Aminotransferase 36 U/L (4-35); Albumin Level 3.3 g/dL (3.5-5.1); Alkaline Phosphatase 38 U/L (38-126); Aspartate Amino Transferase 58 U/L (14-36); Bilirubin,Total 0.5 mg/dL (0.2-1.3); Blood Urea Nitrogen 9 mg/dL (7-17); Calcium 8.8 mg/dL (8.4-10.2); Carbon Dioxide 30 mmol/L (22-30); Chloride 102 mmol/L (98-107); Estimated CRCL calculation 111 ml/min; Estimated Glomerular Filt Rate > 60; Glucose 116 mg/dL (65-105); Potassium 3.2 mmol/L (3.4-5.0); Sodium 137 mmol/L (137-145)
[2019-11-28 01:51] LABS: Lactic Acid 0.6 mmol/L (0.7-2.1)
[2019-11-28 02:00] LABS: Base Excess ABG 5.1 mEq/l (+/-2.0); Carboxyhemoglobin 0.3 % THb (0-2.0); Fractional Inspired Oxygen 100 %; HCO3 ABG 29.4 mEq/l (22.0-26.0); Methemoglobin ABG 0.5 %THb (0-1.5); Oxygen Content ABG 16.9 %vol (16.0-22.0); Oxygen Saturation ABG 99.9 % (95.0-100.0); PCO2 ABG 42.1 mmHg (35.0-45.0); PO2 ABG 489.9 mmHg (80.0-100.0); Reduced Hemoglobin 1.2 %THb (0-5.0); Total Hemoglobin 11.3 g/dL (12.0-18.0); pH ABG 7.462 (7.350-7.450)
[2019-11-28 02:01] LABS: Arterial Blood Gas PEEP 5 cmH2O; Arterial Blood Gas Tidal Volume 400 ml; Arterial Blood Gas Vent Mode CMV; Arterial Blood Gas Ventilator rate 14 /MIN; Device VENTILATOR; Modified Allen's Test Pass; Site Drawn RIGHT RADIAL
[2019-11-28 02:07] LABS: Beta HCG Quantitative < 2.39 mIU/ML
[2019-11-28] MEDS: HEPARIN SODIUM 5,000 UNITS/ML VIAL 5000 UNITS SUB-Q ×3 (02:48→18:28)
[2019-11-28] MEDS: LACTATED RINGERS 1,000 ML 50 ML IV CONT (04:08)
--- NOTE | 2019-11-28 04:14 | PC.NURSE ---
This patient is a possible candidate for [facility]. [facility] had one of their nurses come to [facility] around 0100 on 11/28/2019 to begin lab work and assessments. The MTS RN requested that we put this patient's tube feeding on hold. I checked with Dr. Myers to make sure this was okay and I was told to gop
--- NOTE | 2019-11-28 04:17 | PC.NURSE ---
This patient is a possible candidate for [facility]. [facility] had one of their nurses come to [facility] around 0100 on 11/28/2019 to begin lab work and assessments. The [facility] RN requested that we hold this patient's tube feeding. I asked Dr. Myers about this and she said to go ahead and put the tube feedings on hold. Tube feeding has been on hold from 0130 on 11/28/2019 to present.
[2019-11-28] MEDS: LABETALOL HCL INJ 100 MG/20 ML VIAL 10 MG IV PUSH (05:17)
[2019-11-28 05:28] LABS: Hematocrit 31.5 % (37.0-47.0); Mean Corpuscular HGB Conc 31.7 g/dl (32-36); Mean Corpuscular Hemoglobin 27.9 pg (26-34); Mean Platelet Volume 10.4 fl (7.4-10.4); Platelet Count Result 185 k/mm3 (150-375); Red Blood Count 3.58 M/mm3 (4.2-5.4); Red Cell Distribution Width 13.3 % (11.5-14.5)
[2019-11-28 05:40] LABS: Blood Urea Nitrogen 9 mg/dL (7-17); Calcium 8.7 mg/dL (8.4-10.2); Carbon Dioxide 33 mmol/L (22-30); Chloride 100 mmol/L (98-107); Estimated CRCL calculation 126 ml/min; Estimated Glomerular Filt Rate > 60; Glucose 106 mg/dL (65-105); Magnesium 1.9 mg/dL (1.6-2.3); Phosphorus 2.8 mg/dL (2.5-4.5); Potassium 3.1 mmol/L (3.4-5.0); Sodium 138 mmol/L (137-145)
[2019-11-28 06:10] LABS: Glucose Point of Care 103 (65-105)
--- NOTE | 2019-11-28 07:45 | PM.IMPN ---
Progress Note: A&P Assessment and Plan (1) Acute respiratory failure: Qualifiers: Respiratory failure complication: hypoxia Qualified Code(s): J96.01 - Acute respiratory failure with hypoxia Code(s): J96.00 - Acute respiratory failure, unspecified whether with hypoxia or hypercapnia Status: Acute Assessment and Plan: Acute respiratory failure requiring intubation. Remains intubated at this time but not sedated. Ventilator management per junior systems analyst. Discussed with junior systems analyst again today. Plan for breathing trial and probable extubation later today. Has been discussed with family with no plans for reintubation. Family waiting to see how patient does after extubation prior to making other decisions. Currently patient remains DNR. (2) Cardiac arrest: Code(s): I46.9 - Cardiac arrest, cause unspecified Status: Acute Assessment and Plan: S/P [id number]-[id number] VFib cardiac arrest with presumed down time of 38 minutes. ROSC achieved in the ED. Completed hypothermia protocol. Appreciate help from junior systems analyst and Cardiology. Remains on IV amiodarone. Telemetry reviewed on 11/28/2019 with sinus rhythm with rate remaining controlled. Will continue to monitor. (3) Anoxic brain damage: Code(s): G93.1 - Anoxic brain damage, not elsewhere classified Status: Acute Assessment and Plan: Result of cardiac arrest. CT brain on 11/25/2019 with hypodense bilateral basal ganglia suspicious for anoxic brain injury. EEG on 11/25/2019 severely abnormal with presents of bihemispheric theta and delta activity with sharp complexes raising possibility of hypoxic encephalopathy. Receiving tube feedings through OG currently. Depending on how she does once extubated may need to discuss PEG with family. Continue IV Keppra. Will continue to monitor. (4) Cardiomyopathy: Qualifiers: Cardiomyopathy type: unspecified Qualified Code(s): I42.9 - Cardiomyopathy, unspecified Code(s): I42.9 - Cardiomyopathy, unspecified Status: Acute Assessment and Plan: Patient has a history nonischemic cardiomyopathy. She presumably had a normal left heart catheterization in 2018. Echocardiogram here showing EF of 20-25% and grade 1 diastolic dysfunction. Cardiology following as noted above. Remains on Coreg and lisinopril per OG. (5) Hypokalemia: Code(s): E87.6 - Hypokalemia Status: Acute Assessment and Plan: Potassium still low but up to 3.1 today. Will receive IV replacement today. Continue to monitor and replace as needed depending on how she is doing otherwise. (6) Pneumothorax: Qualifiers: Pneumothorax type: traumatic Encounter type: initial encounter Qualified Code(s): S27.0XXA - Traumatic pneumothorax, initial encounter Code(s): J93.9 - Pneumothorax, unspecified Status: Acute Assessment and Plan: Tension pneumothorax probably related to the CPR performed in the field. Right sided Chest Tube remains in place with dressing replaced on 11/27/2019 per surgery. General surgery following and appreciate input. (7) Elevated troponin: Code(s): R79.89 - Other specified abnormal findings of blood chemistry Status: Acute Assessment and Plan: Troponin peaked at 7.14. Related to VFib arrest. Unlikely she had plaque rupture. Appreciate input from Cardiology. No additional evaluation with current situation. (8) Pneumonia: Qualifiers: Pneumonia type: due to unspecified organism Laterality: right Lung location: upper lobe of lung Qualified Code(s): J18.9 - Pneumonia, unspecified organism Code(s): J18.9 - Pneumonia, unspecified organism Status: Acute Assessment and Plan: Ruled out. Concern on admission but chest x-ray and clinical findings not consistent with pneumonia. Blood cultures remain negative. Does remain on IV Zosyn started by junior systems analyst. IV vancomyc
[2019-11-28] MEDS: POTASSIUM CHLORIDE 20 MEQ PACKET (FOR LIQUID) 40 MEQ FEED TUBE (09:05)
[2019-11-28] MEDS: lisinopriL 20 MG TABLET 40 MG FEED TUBE (09:05)
[2019-11-28] MEDS: MUPIROCIN 2% OINT 22 GM TUBE 1 APPLIC EACH NARE ×2 (09:05→20:45)
--- NOTE | 2019-11-28 09:11 | PM.PNCARD ---
Progress Note: A&P Assessment and Plan (1) Cardiomyopathy: Qualifiers: Cardiomyopathy type: unspecified Qualified Code(s): I42.9 - Cardiomyopathy, unspecified Code(s): I42.9 - Cardiomyopathy, unspecified Status: Acute Assessment and Plan: Known severe nonischemic cardiomyopathy. 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 Continue supportive care (2) Cardiac arrest: Code(s): I46.9 - Cardiac arrest, cause unspecified Status: Acute Assessment and Plan: Has fewer PVCs and no longer having bigeminy. On IV amiodarone, switch to per NGT when tolerating tube feedings better. ____ (3) Hypokalemia: Code(s): E87.6 - Hypokalemia Status: Acute Assessment and Plan: Was again running low, supplemented with p.o. and IV. Finally improving. (4) Hypomagnesemia: Code(s): E83.42 - Hypomagnesemia Status: Acute Assessment and Plan: Corrected (5) Encephalopathy: Code(s): G93.40 - Encephalopathy, unspecified Status: Acute Assessment and Plan: Appears to have severe anoxic encephalopathy. Neurologist thinks the prognosis is poor for recovery. Continue supportive care (6) Elevated troponin: Code(s): R79.89 - Other specified abnormal findings of blood chemistry Status: Acute Assessment and Plan: Liikely related to prolonged arrest (7) Pneumothorax: Qualifiers: Pneumothorax type: traumatic Encounter type: initial encounter Qualified Code(s): S27.0XXA - Traumatic pneumothorax, initial encounter Code(s): J93.9 - Pneumothorax, unspecified Status: Acute Assessment and Plan: Management per bus person dishwasher Subjective Date/time seen: 11/28/19 09:11 Interval history: Follow-up for: History of NICMP admitted after sustaining an [id number]-[id number] cardiac arrest. 11/26/2019 Visit: Patient remains on the ventilator with FiO2 20%, tube feedings held temporarily because of vomiting. Not requiring any pressors. IV nicardipine change to carvedilol and lisinopril. Still on IV amiodarone. Telemetry shows PVCs and occasional ventricular bigeminy. Has had potassium of 2.8 this morning. Receiving 2nd bag of KCl 40 mEq and also had 40 mg events per feeding tube. Also had IV magnesium. Per nurses, patient sometimes withdraws to pain and has a sluggish light reflex. 11/27/2019 Visit: Patient remains on a ventilator at, tolerating tube feedings better, not requiring pressors. On IV amiodarone, still with PVCs and occasional bigeminy, still with severe hypokalemia despite multiple doses of potassium yesterday. Still has a chest tube in place. Chest x-ray today showed a small apical pneumo. Per EMR the patient has some decorticate posturing at times and a good cough reflex. Critical care physician discussed with family; the plan is to attempt extubation tomorrow. Patient is a DNR. Date of service 11/28/2019: Remains on ventilator, no tube feedings at present. On IV amiodarone, and getting IV potassium. Telemetry shows sinus rhythm with PVCs, no significant bigeminy. Apologize family conference later today normal 1 hour to discuss plans, possible extubation cetera. Review of Systems Review of Systems: All systems reviewed & are unremarkable except as noted in HPI and below ROS unobtainable: unobtainable due to endotracheal tube, unobtainable due to mental condition and unobtainable due to mental status Constitutional: Constitutional: Reports as per HPI (Decorticate posturing noted per staff) and Reports chills Eyes: Eyes: Denies blurry vision ENT: Reports as per HPI C
[2019-11-28] MEDS: levETIRAcetam 500MG/NACL 100ML 500 MG/100 ML BAG 400 MG IVPB (09:18)
[2019-11-28] MEDS: AMIODARONE 360 MG/D5W 200 ML 360 MG/200 ML BAG 16.7 MG IV CONT ×2 (09:32→21:10)
--- NOTE | 2019-11-28 09:35 | PM.PNGS ---
Progress Note: A&P Assessment and Plan (1) Pneumothorax: Qualifiers: Pneumothorax type: traumatic Encounter type: initial encounter Qualified Code(s): S27.0XXA - Traumatic pneumothorax, initial encounter Code(s): J93.9 - Pneumothorax, unspecified Status: Acute Assessment and Plan: CXR this morning shows no pneumothorax. No air leak today again. Continue to monitor chest tube while on positive pressure ventilation. (2) Acute respiratory failure: Qualifiers: Respiratory failure complication: hypoxia Qualified Code(s): J96.01 - Acute respiratory failure with hypoxia Code(s): J96.00 - Acute respiratory failure, unspecified whether with hypoxia or hypercapnia Status: Acute Assessment and Plan: Patient on mechanical ventilator. (3) Anoxic brain damage: Code(s): G93.1 - Anoxic brain damage, not elsewhere classified Status: Acute (4) Cardiac arrest: Code(s): I46.9 - Cardiac arrest, cause unspecified Status: Acute Additional Plan After speaking with the nurse, family will have a discussion today about possible extubation and comfort measures. Subjective Subjective Date/Time Seen: 11/28/19 09:00 Interval history: Patient seen and examined. No issues with the chest tube overnight per the nurse. Patient still intubated on mechanical ventilator. No acute events overnight. Review of Systems Review of Systems: ROS unobtainable: unobtainable due to endotracheal tube and unobtainable due to mental status Exam Const: General: other ( intubated) Resp: Effort & Inspection: other (full ventilatory support) Auscultation: clear to auscultation bilaterally Other: Right chest tube in place with dressing clean, dry, and intact. No air leak. Neuro: Other: Patient opens eyes to voice but does not track you or follow commands or have any purposeful movement. Objective Data Vital Signs Vital Signs: Vital Signs - 24 hr 11/27/19 10:00 11/27/19 10:45 11/27/19 12:00 Temperature 37.3 C 37.3 C Pulse Rate 86 73 60 Respiratory Rate 14 14 Blood Pressure 141/71 H 100/55 L Pulse Oximetry 94 100 99 11/27/19 14:00 11/27/19 14:53 11/27/19 16:00 Temperature 37.4 C Pulse Rate 62 76 74 Respiratory Rate 12 16 Blood Pressure 117/68 145/82 H Pulse Oximetry 99 98 97 11/27/19 16:21 11/27/19 18:00 11/27/19 19:40 Temperature 37.4 C Pulse Rate 89 93 Respiratory Rate 19 Blood Pressure 171/89 H 198/97 H Pulse Oximetry 96 97 11/27/19 19:46 11/27/19 20:00 11/27/19 20:13 Temperature 37.6 C Pulse Rate 76 70 69 Respiratory Rate 14 Blood Pressure 161/88 H Pulse Oximetry 98 11/27/19 22:00 11/27/19 23:10 11/28/19 00:00 Temperature Pulse Rate 74 78 66 Respiratory Rate 15 Blood Pressure 145/80 H Pulse Oximetry 98 98 100 11/28/19 02:00 11/28/19 02:15 11/28/19 03:00 Temperature 37.5 C 37.5 C Pulse Rate 65 79 73 Respiratory Rate 17 17 Blood Pressure 158/84 H 152/83 H Pulse Oximetry 100 99 99 11/28/19 04:00 11/28/19 05:00 11/28/19 05:15 Temperature 37.2 C 37.5 C Pulse Rate 77 76 79 Respiratory Rate 17 18 Blood Pressure 167/89 H 173/98 H Pulse Oximetry 99 99 98 11/28/19 05:17 11/28/19 06:00 11/28/19 07:00 Temperature 37.2 C 37.1 C Pulse Rate 76 69 72 Respiratory Rate 15 17 Blood Pressure 151/91 H 158/90 H Pulse Oximetry 99 98 11/28/19 08:00 11/28/19 08:10 Temperature 37.2 C Pulse Rate 74 76 Respiratory Rate 15 Blood Pressure 156/84 H Pulse Oximetry 99 99 Intake/Output Intake/Output: Intake & Output 11/25/19 11/26/19 11/27/19 11/28/19 23:59 23:59 23:59 23:59 Intake Total 5650.6 4668 2583 737.3334 Output Total 2788 4985 3064 2100 [facility] -2034.4 -2940 -109 -[phone] Meds/Results Medications: Active Medications Generic Name Dose Route Start Last Admin Trade Name Freq PRN Reason Stop Dose Admin Carvedilol 12.5 mg 11/28/19 09:24 Coreg FEED TUBE Q12H
--- NOTE | 2019-11-28 09:39 | PM.PNCARD ---
Objective Data Vital Signs Vital Signs: Vital Signs - 24 hr 11/27/19 10:00 11/27/19 10:45 11/27/19 12:00 Temperature 37.3 C 37.3 C Pulse Rate 86 73 60 Respiratory Rate 14 14 Blood Pressure 141/71 H 100/55 L Pulse Oximetry 94 100 99 11/27/19 14:00 11/27/19 14:53 11/27/19 16:00 Temperature 37.4 C Pulse Rate 62 76 74 Respiratory Rate 12 16 Blood Pressure 117/68 145/82 H Pulse Oximetry 99 98 97 11/27/19 16:21 11/27/19 18:00 11/27/19 19:40 Temperature 37.4 C Pulse Rate 89 93 Respiratory Rate 19 Blood Pressure 171/89 H 198/97 H Pulse Oximetry 96 97 11/27/19 19:46 11/27/19 20:00 11/27/19 20:13 Temperature 37.6 C Pulse Rate 76 70 69 Respiratory Rate 14 Blood Pressure 161/88 H Pulse Oximetry 98 11/27/19 22:00 11/27/19 23:10 11/28/19 00:00 Temperature Pulse Rate 74 78 66 Respiratory Rate 15 Blood Pressure 145/80 H Pulse Oximetry 98 98 100 11/28/19 02:00 11/28/19 02:15 11/28/19 03:00 Temperature 37.5 C 37.5 C Pulse Rate 65 79 73 Respiratory Rate 17 17 Blood Pressure 158/84 H 152/83 H Pulse Oximetry 100 99 99 11/28/19 04:00 11/28/19 05:00 11/28/19 05:15 Temperature 37.2 C 37.5 C Pulse Rate 77 76 79 Respiratory Rate 17 18 Blood Pressure 167/89 H 173/98 H Pulse Oximetry 99 99 98 11/28/19 05:17 11/28/19 06:00 11/28/19 07:00 Temperature 37.2 C 37.1 C Pulse Rate 76 69 72 Respiratory Rate 15 17 Blood Pressure 151/91 H 158/90 H Pulse Oximetry 99 98 11/28/19 08:00 11/28/19 08:10 11/28/19 09:00 Temperature 37.2 C 36.6 C Pulse Rate 74 76 65 Respiratory Rate 15 14 Blood Pressure 156/84 H 144/94 H Pulse Oximetry 99 99 100 Intake/Output Intake/Output: Intake & Output 11/25/19 11/26/19 11/27/19 11/28/19 23:59 23:59 23:59 23:59 Intake Total 5650.6 4622 9667 737.3334 Output Total 3281 3650 6497 2100 [facility] -2034.4 -2940 -109 -1362.6666 Meds/Results Medications: Active Medications Generic Name Dose Route Start Last Admin Trade Name Freq PRN Reason Stop Dose Admin Carvedilol 12.5 mg 11/28/19 09:24 Coreg FEED TUBE Q12HR YESSY Famotidine 20 mg 11/23/19 09:00 11/27/19 20:14 Pepcid Iv IV PUSH 20 mg Q12HR YESSY Administration Heparin Sodium (Porcine) 5,000 units 11/23/19 09:00 11/28/19 09:18 Heparin Sodium SUB-Q 5,000 units Q8H YESSY Administration Amiodarone HCl/Dextrose 360 mg in 200 mls @ 16.667 mls/hr 11/23/19 02:56 11/28/19 09:32 Nexterone 360 Mg/D5w 200 Ml IV CONT 0.5 mg/min .Q12H YESSY 16.7 mls/hr Administration 0.5 MG/MIN Piperacillin/Tazobactam/Dextrose 3.375 gm in 50 mls @ 100 mls/hr 11/23/19 09:00 11/28/19 09:04 Zosyn 3.375 Gm/D5w 50ml Pm IVPB 100 mls/hr Q6H YESSY Administration Levetiracetam 500 mg in 100 mls @ 400 mls/hr 11/24/19 09:00 11/28/19 09:18 Keppra Iv IVPB 400 mls/hr Q12HR YESSY Administration Lactated Ringer's 1,000 mls @ 50 mls/hr 11/28/19 04:00 11/28/19 04:08 Lr - Lactated Ringers Iv IV CONT 50 mls/hr .Q20H YESSY Administration Potassium Chloride 100 mls @ 25 mls/hr 11/28/19 07:50 11/28/19 08:26 Kcl 40 Meq/Water 100 Ml IVPB 11/28/19 11:49 25 mls/hr ONCE ONE Administration Labetalol HCl 10 mg 11/24/19 19:37 11/28/19 05:17 Normodyne Inj IV PUSH 10 mg Q6H PRN Administration Hypertension Lisinopril 40 mg 11/26/19 13:15 11/28/19 09:05 Prinivil FEED TUBE 40 mg QAM YESSY Administration Multi-Ingred Cream/Lotion/Oil/Oint 1 applic 11/23/19 09:00 11/28/19 09:04 Lubrifresh Pm Eye Ointment EACH EYE 1 applic Q12HR YESSY Administration Mupirocin 1 applic 11/24/19 21:00 11/28/19 09:05 Bactroban 2% Oint EACH NARE 11/29/19 09:01 1 applic Q12HR YESSY Administration Ondansetron HCl 4 mg 11/26/19 09:01 11/26/19 11:55 Zofran Inj IV PUSH 4 mg Q6H PRN Administration Nausea And Vomiting Potassium Chloride 40 meq 11/27/19 09:00 11/28/19 09:05 Kcl Powder (For Liquid) FEED TUBE 40
--- NOTE | 2019-11-28 09:41 | WPDINTPN ---
Progress Note: A&P Assessment and Plan (1) Acute respiratory failure: Qualifiers: Respiratory failure complication: hypoxia Qualified Code(s): J96.01 - Acute respiratory failure with hypoxia Code(s): J96.00 - Acute respiratory failure, unspecified whether with hypoxia or hypercapnia Status: Acute Assessment and Plan: I will continue mechanical ventilation with lung protective strategies. - Reviewed chest x-ray and ABG today. - patient currently on CMV mode of ventilation per [facility] - according to Dr. Malik's conversation with the family, patient may be extubated will sometime today. They do not want the patient to be reintubated if she fails (2) Anoxic brain damage: Code(s): G93.1 - Anoxic brain damage, not elsewhere classified Status: Acute Assessment and Plan: Clinically this seems to have significant anoxic brain damage. She does not follow any commands but withdraws LE to pain and decorticate posturing noted b/l UE. - EEG showed diffuse slowing . CT scan done on 11/25/2019 showed hypodense bilateral basal ganglia suspicious for anoxic brain injury. - On keppra (3) Pneumothorax: Qualifiers: Encounter type: initial encounter Pneumothorax type: traumatic Qualified Code(s): S27.0XXA - Traumatic pneumothorax, initial encounter Code(s): J93.9 - Pneumothorax, unspecified Status: Acute Assessment and Plan: Chest tube was placed in the emergency department. Unclear if it is secondary to pressure trauma during intubation and initial mechanical ventilation en route to emergency department or if it is a primary event causing all the rest of the complication. Other possibility can be CPR induced trauma. Continue chest tube and usual care of the chest tube until she remained intubated. Surgery following the patient (4) Elevated troponin: Code(s): R79.89 - Other specified abnormal findings of blood chemistry Status: Acute Assessment and Plan: Acute myocardial event versus demand ischemia. troponin peaked at 7.1. There is a downtrend now. Cardiology has evaluated the patient and is not a candidate for any invasive procedure at this time. (5) Cardiomyopathy: Qualifiers: Cardiomyopathy type: unspecified Qualified Code(s): I42.9 - Cardiomyopathy, unspecified Code(s): I42.9 - Cardiomyopathy, unspecified Status: Acute Assessment and Plan: Cardiology recommendation appreciated. Continue amiodarone drip for now to prevent arrythmia If she has meaningful recovery then she may be candidate for ICD placement. Echocardiogram Showing ejection fraction 20-25%. continue coreg and lisinorpil (6) Elevated LFTs: Code(s): R94.5 - Abnormal results of liver function studies Status: Acute Assessment and Plan: Likely secondary to shock liver. Continue to trend LFTs. LFTs are trending down. (7) Hypokalemia: Code(s): E87.6 - Hypokalemia Status: Acute Assessment and Plan: will replace potassium, patient is auto diuresing which could be a reason for hypokalemia (8) Cardiac arrest: Code(s): I46.9 - Cardiac arrest, cause unspecified Status: Acute Assessment and Plan: Completed hypothermia protocol. Amio drip for vfib (9) Pneumonia: Qualifiers: Laterality: right Lung location: upper lobe of lung Pneumonia type: due to unspecified organism Qualified Code(s): J18.9 - Pneumonia, unspecified organism Code(s): J18.9 - Pneumonia, unspecified organism Status: Acute Assessment and Plan: No elevated WBC count , cxr with no infiltrates. cx negative so far. unclear source of infection . Will deescalate abx rx as tolerated. On zosyn (10) Hypophosphatemia: Code(s): E83.39 - Other disorders of phosphorus metabolism Status: Acute Assessment and Plan: resolved (11
[2019-11-28] MEDS: carvediloL 12.5 MG TABLET FEED TUBE ×2 (11:03→20:41)
[2019-11-28] MEDS: FAMOTIDINE 20 MG/2 ML VIAL IV PUSH ×2 (11:04→20:45)
--- NOTE | 2019-11-28 12:21 | PCDIET ---
ICU Rounding Note: Patient intubated with plan for extubation today. Tube feedings have been held overnight per MTS request. Last recorded weight is 93kg which is decreased. I/O negative. Bowel Motility: No documented bowel movements. Bowel sounds hypoactive. Labs Reviewed: Glu (106), Cr (0.6), K (3.1), Alb (3.3) Meds Noted: KCl, Pepcid, LR @ 50mL/hr Additional Notes: Family will discuss PEG if patient survives following extubation. Following daily in ICU rounds. Assessing/reassessing every Monday/Monday.
[2019-11-28 12:31] LABS: Glucose Point of Care 97 (65-105)
[2019-11-28] MEDS: SCOPOLAMINE 1.5 MG PATCH TRANSDERM ×2 (12:40→19:21)
[2019-11-28 13:10] LABS: Alveolar/Arterial O2 Gradient 60.1 mmHg; Base Excess ABG 4.1 mEq/l (+/-2.0); Device VENTILATOR; Fractional Inspired Oxygen 30 %; HCO3 ABG 27.9 mEq/l (22.0-26.0); Oxygen Content ABG 14.6 %vol (16.0-22.0); Oxygen Saturation ABG 98.2 % (95.0-100.0); Oxyhemoglobin 96.5 % THb (90.0-100.0); Site Drawn RIGHT BRACHIAL; Total Hemoglobin 10.6 g/dL (12.0-18.0); pH ABG 7.473 (7.350-7.450)
[2019-11-28 13:11] LABS: Arterial Blood Gas PEEP 5 cmH2O; Arterial Blood Gas Pressure Support 8 cmH2O; Arterial Blood Gas Vent Mode SPONTANEOUS
[2019-11-28] MEDS: LORAZEPAM INJ 2 MG/ML VIAL 1 MG IV PUSH (15:58)
[2019-11-28] MEDS: levETIRAcetam IV 750 MG in DEXTROSE 5% 100 ML 430 MG IVPB (16:16)
[2019-11-28] MEDS: DEXAMETHASONE SOD PHOS INJ 4 MG/ML VIAL IV PUSH (18:28)
[2019-11-28] MEDS: ATROPINE SULFATE 1% OPHTH SOLN 5 ML BOTTLE 1 DROP SUBLINGUAL (19:34)
[2019-11-28] MEDS: levETIRAcetam 1000MG/NACL100ML 1,000 MG/100 ML BAG 400 MG IVPB (21:05)
[2019-11-29] VITALS (9 sets, daily range): BP systolic 93–144; BP diastolic 56–93; PULSE 63–96; RESP 14–24; TEMP 36.6–37; O2SAT 92–100
[2019-11-29] MEDS: DEXAMETHASONE SOD PHOS INJ 4 MG/ML VIAL IV PUSH ×3 (00:39→12:09)
[2019-11-29] MEDS: HEPARIN SODIUM 5,000 UNITS/ML VIAL 5000 UNITS SUB-Q ×2 (00:40→08:45)
[2019-11-29] MEDS: LACTATED RINGERS 1,000 ML 50 ML IV CONT (03:07)
[2019-11-29] MEDS: levETIRAcetam 1000MG/NACL100ML 1,000 MG/100 ML BAG 400 MG IVPB (05:19)
[2019-11-29] MEDS: AMIODARONE 360 MG/D5W 200 ML 360 MG/200 ML BAG 16.7 MG IV CONT (07:50)
--- NOTE | 2019-11-29 08:26 | PM.IMPN ---
Progress Note: A&P Assessment and Plan (1) Anoxic brain damage: Code(s): G93.1 - Anoxic brain damage, not elsewhere classified Status: Acute Assessment and Plan: Result of cardiac arrest. CT brain on 11/25/2019 with hypodense bilateral basal ganglia suspicious for anoxic brain injury. EEG on 11/25/2019 severely abnormal with presents of bihemispheric theta and delta activity with sharp complexes raising possibility of hypoxic encephalopathy. Now extubated. Has been having seizures. Now on IV Keppra and IV Dilantin. Scopolamine patches x2 in place. Atropine drops available for secretions. Discussed with merchandise flow team leader. Patient is currently DNR. Plan to have discussion with family regarding their wishes for ongoing care. Plan to resume tube feedings today. Continue to monitor. (2) Seizures: Code(s): R56.9 - Unspecified convulsions Status: Acute Assessment and Plan: Was already on IV Keppra prior to extubation. Now additionally has IV Dilantin. Seizures have decreased but not resolved. Does also have IV lorazepam as needed. Neurology is seeing patient and appreciate input. IV Decadron initiated due to swelling of tongue. Will continue to monitor. (3) Acute respiratory failure: Qualifiers: Respiratory failure complication: hypoxia Qualified Code(s): J96.01 - Acute respiratory failure with hypoxia Code(s): J96.00 - Acute respiratory failure, unspecified whether with hypoxia or hypercapnia Status: Acute Assessment and Plan: Acute respiratory failure requiring intubation. Successfully extubated on 11/29/2019. Family does not want re-intubation. Oxygen saturation 100% on 2 L presently. Continue treatment of other issues as noted. (4) Cardiac arrest: Code(s): I46.9 - Cardiac arrest, cause unspecified Status: Acute Assessment and Plan: S/P [id number] VFib cardiac arrest with presumed down time of 38 minutes. ROSC achieved in the ED. Completed hypothermia protocol. Appreciate help from merchandise flow team leader and Cardiology. Remains on IV amiodarone. Telemetry reviewed on 11/29/2019 with sinus rhythm with rate controlled. Will continue to monitor. (5) Cardiomyopathy: Qualifiers: Cardiomyopathy type: unspecified Qualified Code(s): I42.9 - Cardiomyopathy, unspecified Code(s): I42.9 - Cardiomyopathy, unspecified Status: Acute Assessment and Plan: Patient has a history nonischemic cardiomyopathy. She presumably had a normal left heart catheterization in 2018. Echocardiogram here showing EF of 20-25% and grade 1 diastolic dysfunction. Cardiology following as noted above. Remains on Coreg and lisinopril per OG. (6) Hypokalemia: Code(s): E87.6 - Hypokalemia Status: Acute Assessment and Plan: Potassium still low at 3.1 on 11/28/2019. Did receive IV replacement. Not rechecked today but will need to see how family wishes to proceed. (7) Pneumothorax: Qualifiers: Pneumothorax type: traumatic Encounter type: initial encounter Qualified Code(s): S27.0XXA - Traumatic pneumothorax, initial encounter Code(s): J93.9 - Pneumothorax, unspecified Status: Acute Assessment and Plan: Tension pneumothorax probably related to the CPR performed in the field. Right sided Chest Tube remains in place with dressing replaced on 11/27/2019 per surgery. General surgery following and appreciate input. No new issues. (8) Elevated troponin: Code(s): R79.89 - Other specified abnormal findings of blood chemistry Status: Acute Assessment and Plan: Troponin peaked at 7.14. Related to VFib arrest. Unlikely she had plaque rupture. Appreciate input from Cardiology. No additional evaluation with current situation. (9) Pneumonia: Qualifiers: Pneumonia type: due to unspecified organism Laterality: right Lung location: upper lobe of lung Qual
[2019-11-29] MEDS: FAMOTIDINE 20 MG/2 ML VIAL IV PUSH (08:45)
[2019-11-29] MEDS: carvediloL 12.5 MG TABLET FEED TUBE (08:45)
[2019-11-29] MEDS: MUPIROCIN 2% OINT 22 GM TUBE 1 APPLIC EACH NARE (08:45)
[2019-11-29] MEDS: POTASSIUM CHLORIDE 20 MEQ PACKET (FOR LIQUID) 40 MEQ FEED TUBE (08:46)
--- NOTE | 2019-11-29 11:03 | PM.PNCARD ---
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 Family has decided to withdraw care and seek hospice/comfort measures. Patient is now DNR Objective Data Vital Signs Vital Signs: Vital Signs - 24 hr 11/28/19 11:33 11/28/19 12:00 11/28/19 13:41 Temperature 36.8 C Pulse Rate 89 72 Respiratory Rate 14 Blood Pressure 128/78 Pulse Oximetry 99 98 97 11/28/19 14:00 11/28/19 16:00 11/28/19 18:00 Temperature 37.3 C Pulse Rate 86 81 82 Respiratory Rate 19 21 H 25 H Blood Pressure 163/100 H 151/87 H 149/90 H Pulse Oximetry 96 93 95 11/28/19 20:00 11/28/19 20:28 11/28/19 20:41 Temperature 37.2 C Pulse Rate 84 98 90 Respiratory Rate 28 H 24 H Blood Pressure 152/94 H Pulse Oximetry 97 96 11/28/19 22:00 11/29/19 00:00 11/29/19 02:00 Temperature 37.0 C Pulse Rate 82 78 67 Respiratory Rate 19 16 14 Blood Pressure 138/93 H 144/93 H 99/56 L Pulse Oximetry 97 95 99 11/29/19 04:00 11/29/19 06:00 11/29/19 08:45 Temperature 36.6 C Pulse Rate 96 63 67 Respiratory Rate 16 24 H Blood Pressure 99/68 L 107/67 Pulse Oximetry 97 99 Intake/Output Intake/Output: Intake & Output 11/26/19 11/27/19 11/28/19 11/29/19 23:59 23:59 23:59 23:59 Intake Total 4628 3281 2587.8334 1198.0 Output Total 7568 3390 3260 1535 Balance -2940 -109 -672.1666 -337.0 Meds/Results Medications: Active Medications Generic Name Dose Route Start Last Admin Trade Name Freq PRN Reason Stop Dose Admin Atropine Sulfate 1 drop 11/28/19 18:49 11/28/19 19:34 Atropine Sulfate 1% Ophth Harriett SUBLINGUAL 1 drop Q4H PRN Administration Secretions Carvedilol 12.5 mg 11/28/19 09:00 11/29/19 08:45 Coreg FEED TUBE 12.5 mg Q12HR YESSY Administration Dexamethasone Sodium Phosphate 4 mg 11/28/19 18:00 11/29/19 05:19 Decadron 4 Mg/Ml Inj IV PUSH 11/29/19 12:01 4 mg Q6HR YESSY Administration Famotidine 20 mg 11/23/19 09:00 11/29/19 08:45 Pepcid Iv IV PUSH 20 mg Q12HR YESSY Administration Heparin Sodium (Porcine) 5,000 units 11/23/19 09:00 11/29/19 08:45 Heparin Sodium SUB-Q 5,000 units Q8H YESSY Administration Amiodarone HCl/Dextrose 360 mg in 200 mls @ 16.667 mls/hr 11/23/19 02:56 11/29/19 07:50 Nexterone 360 Mg/D5w 200 Ml IV CONT 0.5 mg/min .Q12H YESSY 16.7 mls/hr Administration 0.5 MG/MIN Piperacillin/Tazobactam/Dextrose 3.375 gm in 50 mls @ 100 mls/hr 11/23/19 09:00 11/29/19 09:14 Zosyn 3.375 Gm/D5w 50ml Pm IVPB Infused Q6H YESSY Infusion Lactated Ringer's 1,000 mls @ 50 mls/hr 11/28/19 04:00 11/29/19 05:34 Lr - Lactated Ringers Iv IV CONT 50 mls/hr .Q20H YESSY Infusion Levetiracetam 1,000 mg in 100 mls @ 400 mls/hr 11/28/19 22:00 11/29/19 05:34 Keppra Iv IVPB Infused Q8HR YESSY Infusion Labetalol HCl 10 mg 11/24/19 19:37 11/28/19 05:17 Normodyne Inj IV PUSH 10 mg Q6H PRN Administration Hypertension Lisinopril 40 mg 11/26/19 13:15 11/29/19 08:46 Prinivil FEED TUBE Not Given QAM YESSY Lorazepam 2 mg 11/28/19 17:39 Ativan Inj IV PUSH Q2HR PRN Seizures Miconazole Nitrate 1 applic 11/28/19 21:00 11/29/19 08:44 Aloe [place] TOPICAL 1 applic Q12HR YESSY Administration Multi-Ingred Cream/Lotion/Oil/Oint 1 applic 11/23/19 09:00 11/29/19 08:47 Lubrifresh Pm Eye Ointment EACH EYE 1 applic Q12HR YESSY Administration Ondansetron HCl 4 mg 11/26/19 09:01 11/26/19 11:55 Zofran Inj IV PUSH 4 mg Q6H PRN Administration Nausea And Vomiting Potassium Chlo
--- NOTE | 2019-11-29 11:44 | PCDIET ---
Nutrition Follow-Up Complete: Nutrition Diagnosis: Inadequate oral intake related to oral intubation as evidenced by NPO status. Nutrition Goal: Patient to meet estimated nutritional needs. Goal not met. Tube feedings previously held prior to extubation. Family has decided for comfort measures, and hospice is being consulted. Recommend NPO unless plan of care changes and aggressive nutritional therapy is desired. Last recorded weight is 88 kg which is decreased. I/O negative. No nutrition support provided for last ~24-36 hrs. Bowel Motility: BM x 2 on 11/28/19. Labs Reviewed: No new BMP available. Meds Noted: Amiodarone, Decadron, Pepcid, Heparin, LR @ 100mL/hr, Zosyn, KCl Additional Notes: No reported skin breakdown. Will follow along for any changes in plan of care and provide nutrition support recommendations, if indicated. Nutrition Monitoring and Evaluation: Follow up every 3 days.
--- NOTE | 2019-11-29 13:17 | WPDINTPN ---
Progress Note: A&P Assessment and Plan (1) Acute respiratory failure: Qualifiers: Respiratory failure complication: hypoxia Qualified Code(s): J96.01 - Acute respiratory failure with hypoxia Code(s): J96.00 - Acute respiratory failure, unspecified whether with hypoxia or hypercapnia Status: Acute Assessment and Plan: patient was extubated on 11/28/2018. Patient has been saturating well on nasal cannula. Tongue was large post extubation, patient given Decadron. - Discussed with mother, sister and daughter and updated them with patient's condition. had a long meeting with them in the conference room regarding plan of care from here onwards, all 3 of them requested to make the patient comfortable and let her go in peace and dignity. They wanted us to stop all medications. . I discuss with them in detail regarding the process of comfort measures and hospice care here onwards, multiple times, to which they acknowledged and comprehended. charge nurse and care coordination were present in the room. Comfort measure orders were placed along with Ativan and morphine. I stopped all medications As per family's request. Patient was evaluated by hospice team and patient was enrolled in hospice care. (2) Anoxic brain damage: Code(s): G93.1 - Anoxic brain damage, not elsewhere classified Status: Acute Assessment and Plan: Clinically this seems to have significant anoxic brain damage. She does not follow any commands but withdraws LE to pain and decorticate posturing noted b/l UE. - EEG showed diffuse slowing . CT scan done on 11/25/2019 showed hypodense bilateral basal ganglia suspicious for anoxic brain injury. - On [place] (3) Pneumothorax: Qualifiers: Pneumothorax type: traumatic Encounter type: initial encounter Qualified Code(s): S27.0XXA - Traumatic pneumothorax, initial encounter Code(s): J93.9 - Pneumothorax, unspecified Status: Acute Assessment and Plan: Chest tube was placed in the emergency department. Unclear if it is secondary to pressure trauma during intubation and initial mechanical ventilation en route to emergency department or if it is a primary event causing all the rest of the complication. Other possibility can be CPR induced trauma. Continue chest tube and usual care of the chest tube until she remained intubated. Surgery following the patient (4) Elevated troponin: Code(s): R79.89 - Other specified abnormal findings of blood chemistry Status: Acute Assessment and Plan: Acute myocardial event versus demand ischemia. troponin peaked at 7.1. There is a downtrend now. Cardiology has evaluated the patient and is not a candidate for any invasive procedure at this time. (5) Cardiomyopathy: Qualifiers: Cardiomyopathy type: unspecified Qualified Code(s): I42.9 - Cardiomyopathy, unspecified Code(s): I42.9 - Cardiomyopathy, unspecified Status: Acute Assessment and Plan: Cardiology recommendation appreciated. Continue amiodarone drip for now to prevent arrythmia If she has meaningful recovery then she may be candidate for ICD placement. Echocardiogram Showing ejection fraction 20-25%. on coreg and lisinorpil (6) Elevated LFTs: Code(s): R94.5 - Abnormal results of liver function studies Status: Acute Assessment and Plan: Likely secondary to shock liver. Continue to trend LFTs. LFTs are trending down. (7) Hypokalemia: Code(s): E87.6 - Hypokalemia Status: Acute Assessment and Plan: will replace potassium, patient is auto diuresing which could be a reason for hypokalemia (8) Cardiac arrest: Code(s): I46.9 - Cardiac arrest, cause unspecified Status: Acute Assessment and Plan: Completed hypothermia protocol. Amio drip for vfib (9) Pneumonia: Qualifiers: Pneumonia type: due
--- NOTE | 2019-11-29 13:54 | PM.DS ---
DS: Diagnosis Admitting Diagnosis Admitting Diagnosis: Cardiac arrest, cause unspecified Discharge Diagnosis (1) Anoxic brain damage: Code(s): G93.1 - Anoxic brain damage, not elsewhere classified Status: Acute (2) Seizures: Code(s): R56.9 - Unspecified convulsions Status: Acute (3) Acute respiratory failure: Qualifiers: Respiratory failure complication: hypoxia Qualified Code(s): J96.01 - Acute respiratory failure with hypoxia Code(s): J96.00 - Acute respiratory failure, unspecified whether with hypoxia or hypercapnia Status: Acute (4) Cardiac arrest: Code(s): I46.9 - Cardiac arrest, cause unspecified Status: Acute (5) Cardiomyopathy: Qualifiers: Cardiomyopathy type: unspecified Qualified Code(s): I42.9 - Cardiomyopathy, unspecified Code(s): I42.9 - Cardiomyopathy, unspecified Status: Acute (6) Hypokalemia: Code(s): E87.6 - Hypokalemia Status: Acute (7) Pneumothorax: Qualifiers: Encounter type: initial encounter Pneumothorax type: traumatic Qualified Code(s): S27.0XXA - Traumatic pneumothorax, initial encounter Code(s): J93.9 - Pneumothorax, unspecified Status: Acute (8) Elevated troponin: Code(s): R79.89 - Other specified abnormal findings of blood chemistry Status: Acute (9) Pneumonia: Qualifiers: Laterality: right Lung location: upper lobe of lung Pneumonia type: due to unspecified organism Qualified Code(s): J18.9 - Pneumonia, unspecified organism Code(s): J18.9 - Pneumonia, unspecified organism Status: Acute (10) Positive nasal culture for methicillin resistant Staphylococcus aureus: Code(s): Z22.322 - Carrier or suspected carrier of Methicillin resistant Staphylococcus aureus Status: Acute (11) Elevated LFTs: Code(s): R94.5 - Abnormal results of liver function studies Status: Acute (12) Hyperglycemia: Code(s): R73.9 - Hyperglycemia, unspecified Status: Acute (13) Hyperammonemia: Code(s): E72.20 - Disorder of urea cycle metabolism, unspecified Status: Acute DS: Summary Hospital Course Reason for hospitalization: Cardiac arrest. Hospital Course: Date of Service of Discharge: November 29, 2019. History of Present Illness: Patient is a 38-year-old with known history cardiomyopathy with EF 20%, cardiac arrhythmia, hypertension hyperlipidemia presented to the emergency room by EMS after being found down and in cardiac arrest. 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 EMS reported patient was found unresponsive with dilated pupils. Narcan was administered without change. Patient was noted to be in ventricular fibrillation received 3 shocks at 200 joules. EMS administered 3 rounds of epinephrine, 2 rounds of magnesium, amiodarone and 4 doses Narcan. Patient arrived with a Baldomero chest compression device present. Patient did have return of circulation in the emergency room. She was intubated with a right chest tube placed due to a right tension pneumothorax. Left IJ was placed by ER staff. Patient was noted to be hypokalemic receive 40 mEq IV potassium chloride. Patient was then admitted to the intensive care unit for further evaluation and treatment. Course in Hospital: Upon arrival to the ICU, patient was noted to have increased respiratory difficulty with intubation performed. She did have consultations with odd ticket clerk, Cardiology and surgery. She was started on IV vancomycin and Zosyn out of concern for pneumonia which was eventually ruled out. MRSA nasal swab was eventually positive the patient did receive Bactroban. Patient was ventilating very well. She was placed on IV amiodarone per Cardiology and monitored. No further arrhythmias noted. Patient reported to have not been wearing life vest per family. No add
[2019-12-01 05:13] LABS: GGT 42 U/L (3-55)
== END 2019-11-29 13:25 | disposition hospice, inpatient (51) | DRG 196 ==
LOC: ANHED 21:44 → ANHICU 23:14
PROVIDERS: Internal Medicine; Internal Medicine Cardiovascular Disease; Internal Medicine Critical Care Medicine; Admitting Provider Internal Medicine; Emergency Provider General Practice; Visit Provider Hospitalist
DX: I49.01 Ventricular fibrillation (principal); I47.2 Ventricular tachycardia; I46.9 Cardiac arrest, cause unspecified; J95.89 Other postprocedural complications and disorders of respiratory system, not elsewhere classified; G93.1 Anoxic brain damage, not elsewhere classified; J93.0 Spontaneous tension pneumothorax; J96.01 Acute respiratory failure with hypoxia; E87.2 Acidosis; I42.9 Cardiomyopathy, unspecified; E87.6 Hypokalemia; J18.9 Pneumonia, unspecified organism; R35.8 Other polyuria; G25.3 Myoclonus; R73.9 Hyperglycemia, unspecified; K72.00 Acute and subacute hepatic failure without coma; E72.20 Disorder of urea cycle metabolism, unspecified; I10 Essential (primary) hypertension; E78.5 Hyperlipidemia, unspecified; F17.210 Nicotine dependence, cigarettes, uncomplicated; Z22.322 Carrier or suspected carrier of Methicillin resistant Staphylococcus aureus; Z28.89 Immunization not carried out for other reason; Z89.511 Acquired absence of right leg below knee; Z85.830 Personal history of malignant neoplasm of bone
CPT/HCPCS: 31500; 36415; 36556; 36600; 36680; 70450; 71045; 74018; 80048; 80053; 80069; 80202; 80307; 81001; 81025; 82140; 82248; 82310; 82375; 82550; 82805; 82977; 83036; 83050; 83605; 83735; 83880; 84100; 84484; 84702; 85025; 85027; 85610; 85730; 86850; 86900; 86901; 87040; 87070; 87077; 87081; 87086; 87185; 87186; 87205; 92950; 93005; 93306; 93970; 94003; 95816; 96365; 96366; 96368; 96375; 99291; A9270; C1729; C1751; J0131; J0171; J0282; J0461; J1100; J1165; J1644; J1953; J2060; J2250; J2405; J2543; J2597; J2704; J3010; J3370; J3475; J3480; J7030; J7050; J7060; J7120

== ENCOUNTER 2019-11-29 13:26 | HOS | payer OTHER, SELFPAY ==
--- NOTE | 2019-11-29 13:26 | PC.NURSE ---
This patient, Sabi Mena, was admitted to Intensive Care Unit-7 as hospice. Patient/family oriented to hospital policies and general routines including ID bracelet, bed and alarms, visiting hours, pain management, procedures, bathroom and other care routines, personal items, smoking policy, room service/diet, and visiting hours. Valuables list has been completed. Information on how to activate the Rapid Response Team has been discussed. Patient/Family are encouraged to report perceived risks to care and to ask questions if they do not understand what they are told or what they should do.
--- NOTE | 2019-11-29 14:07 | PM.IMHP ---
H&P: HPI History of Present Illness Chief complaint: heart disease Narrative: Sabi Mena is a 39 year old female is admitted for palliative care due to anoxic brain injury. She known cardiomyopathy. Was wearing a LifeVest for several weeks. Decided that she would no longer wear it. Indicated to her family that if she were to she did not want prolonged life support. On the liver and or-on May 23 she was found down in the client's yd. 911 was called. CPR was initiated. It is unknown how long she was down. She required intubation, antibiotics for pneumonia. After extubation and initiated sternal comfort care she had generalized tonic colonic seizures and decerebrate posturing. Because the patient's previously expressed wishes and her grim prognosis family opted for hospice care. Review of Systems Review of Systems: ROS unobtainable: unobtainable due to mental condition and unobtainable due to mental status PMFSH Past Medical History Medical History Arrhythmia Unknown type; pt is supposed to wear LifeVest defibrillator. Cardiomyopathy Dyslipidemia Essential hypertension Surgical History Surgical History History of above-knee amputation of right lower extremity Due to bone cancer at the age of 16 Family History Family History Father , Paternal family history unknown No problems noted. Mother No known health problems Grandparent Cervical cancer Ovarian cancer Macular degeneration Social History Social History Social History: The patient has smoked on and off since she was 14 years old. For the most part she has smoked a pack of cigarettes per day for approximately 19 years. She had quit smoking for 2 and 3 years at a time on 2 other occasions. She used to smoke marijuana but the family does not think she has smoked marijuana recently. She only drinks alcohol on occasion and in moderation. She is engaged to be . She has 3 children; the oldest is 18 the younger children are 3-year-old twins. 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 Gender identity (if verbalized by the patient): Female Spiritual care concerns: No Agree to blood products: Yes Meds Home Medications and Allergies Home Medications Medication Instructions Recorded Confirmed Type No Home Medications 11/23/19 11/23/19 History Allergies Allergy/AdvReac Type Severity Reaction Status Date / Time tomato Allergy Hives Verified 11/23/19 02:33 Exam Narrative: Exam Narrative: HEENT: Pupils are midpoint sluggish, pharyngeal mucosa pink and intact NECK: No JVD, adenopathy, or thyromegaly CHEST: Clear to auscultation. Normal effort. HEART: NL S1/S2, regular, no murmur ABDOMEN: BS hypoactive, soft, nontender, no mass, no bruits EXTREMITIES: No cyanosis, edema, or clubbing NEUROLOGIC: CN without asymmetry, left babinski positive MUSCULOSKELETAL: decerebrate posturing with stimulation, Rt. AKA PSYCH: responds only to noxious stimuli Assessment and Plan Assessment and plan (1) Palliative care by specialist: Code(s): Z51.5 - Encounter for palliative care Status: Acute Assessment and Plan: Requires general inpatient status due to need for IV medications to control seizures and symptoms. Continue IV levetiracetam P.r.n. morphine. P.r.n. Ativan. Other comfort measures as ordered. (2) Seizures: Code(s): R56.9 - Unspecified convulsi
--- NOTE | 2019-11-29 14:46 | PM.PNGS ---
Progress Note: A&P Assessment and Plan (1) Pneumothorax: Qualifiers: Pneumothorax type: traumatic Encounter type: initial encounter Qualified Code(s): S27.0XXA - Traumatic pneumothorax, initial encounter Code(s): J93.9 - Pneumothorax, unspecified Status: Acute Assessment and Plan: Patient made comfort care and now in inpatient Hospice. For comfort, we removed the chest tube today and an occlusive dressing was placed. Leave this dressing in place for 3 days, then it can be changed as needed with gauze/tape. We will sign off at this point and just let us know if you have any questions regarding surgical care. (2) Anoxic brain damage: Code(s): G93.1 - Anoxic brain damage, not elsewhere classified Status: Acute Assessment and Plan: Poor overall prognosis. Now admitted to inpatient Hospice. (3) Palliative care by specialist: Code(s): Z51.5 - Encounter for palliative care Status: Acute (4) Seizures: Code(s): R56.9 - Unspecified convulsions Status: Acute Subjective Subjective Date/Time Seen: 11/29/19 14:46 Interval history: Patient seen and examined with no family at the bedside. She is not responding to questions or tracking. Unable to obtain information from the patient due to mental status. Per the nurse and the Integration Engineer, the patient has been discharged and readmitted to Hospice. The plan for the patient is comfort care at this point. Chest x-ray this morning that was ordered was cancelled due to Hospice/comfort care status. Review of Systems Review of Systems: ROS unobtainable: unobtainable due to mental condition and unobtainable due to mental status Exam Const: Other: Patient opens eyes but does not track you with her eyes or follow commands. No purposeful movement. Resp: Auscultation: rhonchi Other: Chest tube in place in right chest. No air leak. Chest tube removed at the bedside and an occlusive dressing was placed. Neuro: Cognition (Neuro): abnormal cognition
[2019-11-29 14:49] VITALS: BMI 29.5
[2019-11-29 17:05] VITALS: BP 171/93; PULSE 73; RESP 12; TEMP 37.6; O2SAT 99
--- NOTE | 2019-11-29 17:05 | PC.NURSE ---
This patient, Sabi Mena, was transferred to [facility] on 11/29/19 at 1705. Personal belongings sent with patient. Report given to LEELEE Ospina. Appropriate documentation sent with patient.
[2019-11-29] MEDS: levETIRAcetam 1000MG/NACL100ML 1,000 MG/100 ML BAG 400 MG IVPB (18:28)
[2019-11-29] MEDS: GLYCOPYRROLATE INJ (*SP) 0.2 MG/ML VIAL 0.1 MG IV PUSH (18:30)
[2019-11-29 20:52] VITALS: PULSE 84; RESP 18; O2SAT 96
[2019-11-29 20:58] VITALS: BP 129/69; PULSE 77; RESP 16; TEMP 37.4; O2SAT 96
[2019-11-30] MEDS: levETIRAcetam 1000MG/NACL100ML 1,000 MG/100 ML BAG 400 MG IVPB ×4 (00:10→20:21)
[2019-11-30] MEDS: GLYCOPYRROLATE INJ (*SP) 0.2 MG/ML VIAL 0.1 MG IV PUSH (05:08)
[2019-11-30 13:35] VITALS: BP 156/78; PULSE 88; RESP 18; TEMP 37.6; O2SAT 92
--- NOTE | 2019-11-30 15:40 | P.PNIM_ITS ---
Progress Note: A&P Assessment and Plan (1) Palliative care by specialist: Code(s): Z51.5 - Encounter for palliative care Status: Acute Assessment and Plan: * Requires general inpatient status due to need for IV medications to control seizures and symptoms. * Continue IV levetiracetam * P.r.n. morphine. P.r.n. Ativan. Other comfort measures as ordered. * 11/30 conitnues to require iv medications for comfort (2) Seizures: Code(s): R56.9 - Unspecified convulsions Status: Acute (3) Anoxic brain damage: Code(s): G93.1 - Anoxic brain damage, not elsewhere classified Status: Acute (4) Cardiomyopathy: Qualifiers: Cardiomyopathy type: unspecified Qualified Code(s): I42.9 - Cardiomyopathy, unspecified Code(s): I42.9 - Cardiomyopathy, unspecified Status: Acute (5) Cardiac arrest: Code(s): I46.9 - Cardiac arrest, cause unspecified Status: Acute Subjective Date/time seen: 11/30/19 15:40 Review of Systems Review of Systems: ROS unobtainable: unobtainable due to mental condition and unobtainable due to mental status Exam Narrative: Exam Narrative: HEENT: Pupils are midpoint sluggish, pharyngeal mucosa pink and intact NECK: No JVD, adenopathy, or thyromegaly CHEST: Clear to auscultation. Normal effort. HEART: NL S1/S2, regular, no murmur ABDOMEN: BS hypoactive, soft, nontender, no mass, no bruits EXTREMITIES: No cyanosis, edema, or clubbing NEUROLOGIC: CN without asymmetry, left babinski positive MUSCULOSKELETAL: Rt. AKA PSYCH: opens eyes randomly, responds only to noxious stimuli Objective Data Vital Signs Vital Signs: Vital Signs - 24 hr 11/29/19 17:05 11/29/19 20:52 11/29/19 20:58 Temperature 99.6 F 99.3 F Pulse Rate 73 84 77 Respiratory Rate 12 18 16 Blood Pressure 171/93 H 129/69 Pulse Oximetry 99 96 96 11/30/19 13:35 Temperature 99.7 F H Pulse Rate 88 Respiratory Rate 18 Blood Pressure 156/78 H Pulse Oximetry 92 Intake/Output Intake/Output: Intake & Output 11/27/19 11/28/19 11/29/1920 23:59 23:59 23:59 23:59 Intake Total 100 300 Output Total 50 300 Balance 50 0 Meds/Results Medications: Active Medications Generic Name Dose Route Start Last Admin Trade Name Freq PRN Reason Stop Dose Admin Bisacodyl 10 mg 11/29/19 16:34 Dulcolax Suppository RECTAL QAM PRN Constipation Glycopyrrolate 0.1 mg 11/29/19 16:35 11/30/19 05:08 Robinul Inj IV PUSH 0.1 mg Q4H PRN Administration SECRETIONS Levetiracetam 1,000 mg in 100 mls @ 400 mls/hr 11/29/19 17:00 11/30/19 14:58 Keppra Iv IVPB Infused Q8HR YESSY Infusion Lorazepam 1 mg 11/29/19 16:34 Ativan Inj IV PUSH Q4H PRN SOB/SEIZURE ACTIVITY Morphine Sulfate 2 mg 11/29/19 16:33 Morphine Sulfate Inj IV PUSH Q2H PRN Pain
[2019-11-30 21:43] VITALS: BP 154/81; PULSE 82; RESP 20; TEMP 37.4; O2SAT 95
[2019-12-01] MEDS: LORAZEPAM INJ 2 MG/ML VIAL 1 MG IV PUSH (02:15)
[2019-12-01] MEDS: levETIRAcetam 1000MG/NACL100ML 1,000 MG/100 ML BAG 400 MG IVPB ×3 (05:36→21:48)
[2019-12-01 16:59] VITALS: BP 177/96; PULSE 90; RESP 20; TEMP 37.6; O2SAT 95
[2019-12-01 21:40] VITALS: BP 159/106; PULSE 91; RESP 20; TEMP 37.3; O2SAT 94
--- NOTE | 2019-12-01 22:35 | PC.NURSE ---
Family wishes to make family confidential. May release information to Kamille Torres(MOM), Noris Mena (SISTER), and Domingo Mohr (BROTHER).
[2019-12-02] MEDS: levETIRAcetam 1000MG/NACL100ML 1,000 MG/100 ML BAG 400 MG IVPB ×3 (05:37→22:17)
[2019-12-02 06:16] VITALS: BP 169/103; PULSE 109; RESP 20; TEMP 37.6; O2SAT 93
[2019-12-02] MEDS: LORAZEPAM INJ 2 MG/ML VIAL 1 MG IV PUSH ×2 (10:50→22:16)
[2019-12-02 15:33] VITALS: BP 138/81; PULSE 68; RESP 16; O2SAT 92
--- NOTE | 2019-12-02 16:30 | P.PNIM_ITS ---
Progress Note: A&P Assessment and Plan (1) Palliative care by specialist: Code(s): Z51.5 - Encounter for palliative care Status: Acute Assessment and Plan: * Requires general inpatient status due to need for IV medications to control seizures and symptoms. * Continue IV levetiracetam * P.r.n. morphine. P.r.n. Ativan. Other comfort measures as ordered. * 2/1 continues to require iv medications for comfort * 2/2 continues to require iv medication for comfort * 2/3 continues to require iv medication for comfort and now febrile, continues to decline Subjective Date/time seen: 12/02/19 16:30 Exam Narrative: Exam Narrative: HEENT: Pupils are midpoint sluggish, pharyngeal mucosa pink and intact NECK: No JVD, adenopathy, or thyromegaly CHEST: Clear to auscultation. Normal effort. HEART: NL S1/S2, regular, no murmur ABDOMEN: BS hypoactive, soft, nontender, no mass, no bruits EXTREMITIES: No cyanosis, edema, or clubbing NEUROLOGIC: CN without asymmetry, left babinski positive MUSCULOSKELETAL: Rt. AKA PSYCH: opens eyes randomly, no response to noxious stimuli Objective Data Vital Signs Vital Signs: Vital Signs - 24 hr 12/01/19 16:59 12/01/19 21:40 12/02/19 06:16 Temperature 99.7 F H 99.2 F 99.6 F Pulse Rate 90 91 109 H Respiratory Rate 20 20 20 Blood Pressure 177/96 H 159/106 H 169/103 H Pulse Oximetry 95 94 93 12/02/19 15:33 Temperature Pulse Rate 68 Respiratory Rate 16 Blood Pressure 138/81 Pulse Oximetry 92 Intake/Output Intake/Output: Intake & Output 11/29/19 11/30/19 12/01/19 12/02/19 23:59 23:59 23:59 23:59 Intake Total 100 400 300 100 Output Total 50 500 1950 700 Balance 50 100 -7610 -600 Meds/Results Medications: Active Medications Generic Name Dose Route Start Last Admin Trade Name Freq PRN Reason Stop Dose Admin Bisacodyl 10 mg 11/29/19 16:34 Dulcolax Suppository RECTAL QAM PRN Constipation Glycopyrrolate 0.1 mg 11/29/19 16:35 11/30/19 05:08 Robinul Inj IV PUSH 0.1 mg Q4H PRN Administration SECRETIONS Levetiracetam 1,000 mg in 100 mls @ 400 mls/hr 11/29/19 17:00 12/02/19 15:27 Keppra Iv IVPB 400 mls/hr Q8HR YESSY Administration Lorazepam 1 mg 11/29/19 16:34 12/02/19 10:50 Ativan Inj IV PUSH 1 mg Q4H PRN Administration SOB/SEIZURE ACTIVITY Morphine Sulfate 2 mg 11/29/19 16:33 Morphine Sulfate Inj IV PUSH Q2H PRN Pain
--- NOTE | 2019-12-02 20:38 | PC.NURSE ---
Patient rounded on Q1 hour, patient relaxed and sleeping in room. 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
[2019-12-02 22:00] VITALS: BP 154/91; PULSE 68; RESP 18; TEMP 36.6; O2SAT 93
[2019-12-02] MEDS: GLYCOPYRROLATE INJ (*SP) 0.2 MG/ML VIAL 0.1 MG IV PUSH (22:17)
[2019-12-03] MEDS: levETIRAcetam 1000MG/NACL100ML 1,000 MG/100 ML BAG 400 MG IVPB ×3 (06:43→21:17)
[2019-12-03] MEDS: LORAZEPAM INJ 2 MG/ML VIAL 1 MG IV PUSH ×4 (07:24→23:42)
[2019-12-03 10:00] VITALS: BP 161/90; PULSE 75; RESP 20; TEMP 36.6; O2SAT 94
--- NOTE | 2019-12-03 12:48 | P.PNIM_ITS ---
Progress Note: A&P Assessment and Plan (1) Palliative care by specialist: Code(s): Z51.5 - Encounter for palliative care Status: Acute Assessment and Plan: * Requires general inpatient status due to need for IV medications to control seizures and symptoms. * Continue IV levetiracetam * P.r.n. morphine. P.r.n. Ativan. Other comfort measures as ordered. * 2/1 continues to require iv medications for comfort * 2/2 continues to require iv medication for comfort * 2/3 continues to require iv medication for comfort and now febrile, continues to decline * 2/4 increased figdeting, moving stump, so schedule iv morphine and lorazepam Subjective Date/time seen: 12/03/19 12:48 Interval history: nonverbal Review of Systems Review of Systems: ROS unobtainable: unobtainable due to mental condition and unobtainable due to mental status Exam Narrative: Exam Narrative: HEENT: Pupils are midpoint sluggish, pharyngeal mucosa pink and intact NECK: No JVD, adenopathy, or thyromegaly CHEST: Clear to auscultation. Normal effort. HEART: NL S1/S2, regular, no murmur ABDOMEN: BS hypoactive, soft, nontender, no mass, no bruits EXTREMITIES: No cyanosis, edema, or clubbing NEUROLOGIC: CN without asymmetry, left babinski positive MUSCULOSKELETAL: Rt. AKA PSYCH: opens eyes randomly, no response to noxious stimuli Objective Data Vital Signs Vital Signs: Vital Signs - 24 hr 12/02/19 15:33 12/02/19 22:00 12/03/19 10:00 Temperature 97.8 F 97.8 F Pulse Rate 68 68 75 Respiratory Rate 16 18 20 Blood Pressure 138/81 154/91 H 161/90 H Pulse Oximetry 92 93 94 Intake/Output Intake/Output: Intake & Output 11/30/19 12/01/19 12/02/19 12/03/19 23:59 23:59 23:59 23:59 Intake Total 400 300 300 100 Output Total 500 1950 1300 450 Balance -100 -1650 -1000 -350 Meds/Results Medications: Active Medications Generic Name Dose Route Start Last Admin Trade Name Freq PRN Reason Stop Dose Admin Bisacodyl 10 mg 11/29/19 16:34 Dulcolax Suppository RECTAL QAM PRN Constipation Glycopyrrolate 0.1 mg 11/29/19 16:35 12/02/19 22:17 Robinul Inj IV PUSH 0.1 mg Q4H PRN Administration SECRETIONS Levetiracetam 1,000 mg in 100 mls @ 400 mls/hr 11/29/19 17:00 12/03/19 06:58 Keppra Iv IVPB Infused Q8HR YESSY Infusion Lorazepam 1 mg 11/29/19 16:34 12/03/19 07:24 Ativan Inj IV PUSH 1 mg Q4H PRN Administration SOB/SEIZURE ACTIVITY Morphine Sulfate 2 mg 11/29/19 16:33 Morphine Sulfate Inj IV PUSH Q2H PRN Pain Tolnaftate 1 applic 12/03/19 12:09 Tolnaftate 1% Powder TOPICAL PRN PRN excoriated areas
[2019-12-03] MEDS: TOLNAFTATE 1% POWDER 45 GM BTL 1 APPLIC TOPICAL (12:50)
[2019-12-03] MEDS: MORPHINE SULFATE 2 MG/ML INJ IV PUSH ×3 (14:35→22:33)
[2019-12-03] MEDS: GLYCOPYRROLATE INJ (*SP) 0.2 MG/ML VIAL 0.1 MG IV PUSH (18:26)
[2019-12-03 22:00] VITALS: BP 138/88; PULSE 77; RESP 16; TEMP 36.3; O2SAT 97
[2019-12-04] MEDS: MORPHINE SULFATE 2 MG/ML INJ IV PUSH ×6 (03:13→22:32)
[2019-12-04] MEDS: levETIRAcetam 1000MG/NACL100ML 1,000 MG/100 ML BAG 400 MG IVPB ×3 (06:36→21:13)
[2019-12-04] MEDS: LORAZEPAM INJ 2 MG/ML VIAL 1 MG IV PUSH ×3 (06:36→17:49)
[2019-12-04] MEDS: TOLNAFTATE 1% POWDER 45 GM BTL 1 APPLIC TOPICAL (09:12)
[2019-12-04 10:00] VITALS: BP 139/88; PULSE 78; RESP 18; TEMP 36.8; O2SAT 91
--- NOTE | 2019-12-04 15:11 | P.PNIM_ITS ---
Progress Note: A&P Assessment and Plan (1) Palliative care by specialist: Code(s): Z51.5 - Encounter for palliative care Status: Acute Assessment and Plan: * Requires general inpatient status due to need for IV medications to control seizures and symptoms. * Continue IV levetiracetam * P.r.n. morphine. P.r.n. Ativan. Other comfort measures as ordered. * 2/1 continues to require iv medications for comfort * 2/2 continues to require iv medication for comfort * 2/3 continues to require iv medication for comfort and now febrile, continues to decline * 2/4 increased figdeting, moving stump, so schedule iv morphine and lorazepam * 2/5 seems comfortable on scheduled meds, notified office that placement might be needed Subjective Date/time seen: 12/04/19 15:11 Interval history: nonverbal Review of Systems Review of Systems: ROS unobtainable: unobtainable due to mental condition and unobtainable due to mental status Exam Narrative: Exam Narrative: HEENT: Pupils are midpoint sluggish, pharyngeal mucosa pink and intact NECK: No JVD, adenopathy, or thyromegaly CHEST: Clear to auscultation. Normal effort. HEART: NL S1/S2, regular, no murmur ABDOMEN: BS hypoactive, soft, nontender, no mass, no bruits EXTREMITIES: No cyanosis, edema, or clubbing NEUROLOGIC: CN without asymmetry, left babinski positive MUSCULOSKELETAL: Rt. AKA PSYCH: opens eyes randomly, no response to noxious stimuli Objective Data Vital Signs Vital Signs: Vital Signs - 24 hr 12/03/19 22:00 12/04/19 10:00 Temperature 97.4 F L 98.2 F Pulse Rate 77 78 Respiratory Rate 16 18 Blood Pressure 138/88 139/88 Pulse Oximetry 97 91 Intake/Output Intake/Output: Intake & Output 12/01/19 12/02/19 12/03/19 12/04/19 23:59 23:59 23:59 23:59 Intake Total 300 300 300 100 Output Total 1950 1300 850 500 Balance -1650 -1000 -550 -400 Meds/Results Medications: Active Medications Generic Name Dose Route Start Last Admin Trade Name Freq PRN Reason Stop Dose Admin Bisacodyl 10 mg 11/29/19 16:34 Dulcolax Suppository RECTAL QAM PRN Constipation Glycopyrrolate 0.1 mg 11/29/19 16:35 12/03/19 18:26 Robinul Inj IV PUSH 0.1 mg Q4H PRN Administration SECRETIONS Levetiracetam 1,000 mg in 100 mls @ 400 mls/hr 11/29/19 17:00 12/04/19 14:02 Keppra Iv IVPB 400 mls/hr Q8HR YESSY Administration Lorazepam 1 mg 12/03/19 12:51 Ativan Inj IV PUSH Q3H PRN SOB/SEIZURE ACTIVITY Lorazepam 1 mg 12/03/19 18:00 12/04/19 12:10 Ativan Inj IV PUSH 1 mg Q6H YESSY Administration Miconazole Nitrate 1 applic 12/03/19 13:30 12/04/19 09:13 Aloe [place] TOPICAL 1 applic Q12HR YESSY Administration Morphine Sulfate 2 mg 11/29/19 16:33 Morphine Sulfate Inj IV PUSH Q2H PRN Pain Morphine Sulfate 2 mg 12/03/19 15:00 12/04/19 11:16 Morphine Sulfate Inj IV PUSH 2 mg Q4H YESSY Administration Tolnaftate 1 applic 12/03/19 12:09 12/04/19 09:12 Tolnaftate 1% Powder TOPICAL 1 applic PRN PRN Administration excoriated areas
[2019-12-04 22:00] VITALS: BP 120/79; PULSE 95; RESP 16; TEMP 37.3; O2SAT 93
[2019-12-04] MEDS: GLYCOPYRROLATE INJ (*SP) 0.2 MG/ML VIAL 0.1 MG IV PUSH (22:32)
[2019-12-05] MEDS: GLYCOPYRROLATE INJ (*SP) 0.2 MG/ML VIAL 0.1 MG IV PUSH ×2 (03:06→06:25)
[2019-12-05] MEDS: MORPHINE SULFATE 2 MG/ML INJ IV PUSH ×5 (03:06→16:05)
[2019-12-05] MEDS: levETIRAcetam 1000MG/NACL100ML 1,000 MG/100 ML BAG 400 MG IVPB ×2 (05:13→13:43)
[2019-12-05] MEDS: LORAZEPAM INJ 2 MG/ML VIAL 1 MG IV PUSH ×3 (05:30→12:02)
--- NOTE | 2019-12-05 11:54 | P.PNIM_ITS ---
Progress Note: A&P Assessment and Plan (1) Palliative care by specialist: Code(s): Z51.5 - Encounter for palliative care Status: Acute Assessment and Plan: * Requires general inpatient status due to need for IV medications to control seizures and symptoms. * Continue IV levetiracetam * P.r.n. morphine. P.r.n. Ativan. Other comfort measures as ordered. * 2/1 continues to require iv medications for comfort * 2/2 continues to require iv medication for comfort * 2/3 continues to require iv medication for comfort and now febrile, continues to decline * 2/4 increased figdeting, moving stump, so schedule iv morphine and lorazepam * 2/5 seems comfortable on scheduled meds, notified office that placement might be needed * 2/6 continues comfortable, plan NH Subjective Date/time seen: 12/05/19 11:54 Interval history: nonverbal Review of Systems Review of Systems: ROS unobtainable: unobtainable due to mental condition and unobtainable due to mental status Exam Narrative: Exam Narrative: HEENT: Pupils are midpoint sluggish, pharyngeal mucosa pink and intact NECK: No JVD, adenopathy, or thyromegaly CHEST: Clear to auscultation. Normal effort. HEART: NL S1/S2, regular, no murmur ABDOMEN: BS hypoactive, soft, nontender, no mass, no bruits EXTREMITIES: No cyanosis, edema, or clubbing NEUROLOGIC: CN without asymmetry, left babinski positive MUSCULOSKELETAL: Rt. AKA PSYCH: opens eyes randomly, no response to noxious stimuli Objective Data Vital Signs Vital Signs: Vital Signs - 24 hr 12/04/19 22:00 Temperature 99.1 F Pulse Rate 95 Respiratory Rate 16 Blood Pressure 120/79 Pulse Oximetry 93 Intake/Output Intake/Output: Intake & Output 12/02/19 12/03/19 12/04/19 12/05/19 23:59 23:59 23:59 23:59 Intake Total 300 300 300 100 Output Total 1300 850 950 600 Balance -1000 -550 -650 -500 Meds/Results Medications: Active Medications Generic Name Dose Route Start Last Admin Trade Name Freq PRN Reason Stop Dose Admin Bisacodyl 10 mg 11/29/19 16:34 Dulcolax Suppository RECTAL QAM PRN Constipation Glycopyrrolate 0.1 mg 11/29/19 16:35 12/05/19 06:25 Robinul Inj IV PUSH 0.1 mg Q4H PRN Administration SECRETIONS Levetiracetam 1,000 mg in 100 mls @ 400 mls/hr 11/29/19 17:00 12/05/19 05:30 Keppra Iv IVPB Infused Q8HR YESSY Infusion Lorazepam 1 mg 12/03/19 12:51 Ativan Inj IV PUSH Q3H PRN SOB/SEIZURE ACTIVITY Lorazepam 1 mg 12/03/19 18:00 12/05/19 05:30 Ativan Inj IV PUSH 1 mg Q6H YESSY Administration Miconazole Nitrate 1 applic 12/03/19 13:30 12/05/19 08:30 [place] TOPICAL 1 applic Q12HR YESSY Administration Morphine Sulfate 2 mg 11/29/19 16:33 Morphine Sulfate Inj IV PUSH Q2H PRN Pain Morphine Sulfate 2 mg 12/03/19 15:00 12/05/19 11:09 Morphine Sulfate Inj IV PUSH 2 mg Q4H YESSY Administration Tolnaftate 1 applic 12/03/19 12:09 12/04/19 09:12 Tolnaftate 1% Powder TOPICAL 1 applic PRN PRN Administration excoriated areas
[2019-12-05 14:00] VITALS: BP 139/64; PULSE 64; RESP 14; TEMP 37.3; O2SAT 96
--- NOTE | 2019-12-05 14:28 | P.DS_ITS ---
DS: Diagnosis Admitting Diagnosis Admitting Diagnosis: Encounter for palliative care Discharge Diagnosis (1) Palliative care by specialist: Code(s): Z51.5 - Encounter for palliative care Status: Acute Assessment and Plan: * Requires general inpatient status due to need for IV medications to control seizures and symptoms. * Continue IV levetiracetam * P.r.n. morphine. P.r.n. Ativan. Other comfort measures as ordered. 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 See h/p for details. Medications were titrated to comfort with IV meds. Transitioned to PO meds. She remained stable with spontaneous, nondirected movements. Discharged to [facility] with [facility]. Status at Discharge Functional status at discharge: bed bound Time Spent with Patient Time attestation: Total time spent providing and/or coordinating discharge services: 35 min Time spent: Greater than 30 minutes Exam Narrative: Exam Narrative: HEENT: Pupils are midpoint sluggish, pharyngeal mucosa pink and intact NECK: No JVD, adenopathy, or thyromegaly CHEST: Clear to auscultation. Normal effort. HEART: NL S1/S2, regular, no murmur ABDOMEN: BS hypoactive, soft, nontender, no mass, no bruits EXTREMITIES: No cyanosis, edema, or clubbing NEUROLOGIC: CN without asymmetry, left babinski positive MUSCULOSKELETAL: Rt. AKA PSYCH: opens eyes randomly, no response to noxious stimuli Discharge Plan Discharge Discharging Clinician: Osmani Schmidt Patient Disposition: Hospice - Medical Facility Activity: as tolerated Diet: NPO Stand Alone Forms: General Discharge Information Follow-up/Referrals: UNKNOWN,DOCTOR [Primary Care Provider] - 1 Week (See NH director in one week and hospice per protocol. ) Discharge Medications: New morphine concentrate 100 mg/5 mL (20 mg/mL) solution See Rx Instructions .ROUTE .COMPLEX Qty: 30 RF: 0 lorazepam 1 mg tablet See Rx Instructions .ROUTE .COMPLEX Qty: 30 RF: 0 bisacodyl 10 mg Suppository 10 mg [place] QAM PRN (Reason: Constipation) Qty: 4 RF: 0 tolnaftate 1 % Powder 1 applic topical PRN PRN (Reason: excoriated areas) Qty: 1 RF: 0 Aloe [place] Antifungal (micon) 2 % Ointment 1 applic topical Q12HR Qty: 15 RF: 0 hyoscyamine sulfate 0.125 mg tablet 0.125 mg PO QID PRN (Reason: secretion control) Qty: 10 RF: 0 No Action No Home Medications RF: 0 Date of admission: 11/29/19 13:26 Primary Care Provider: UNKNOWN,DOCTOR Admitting Provider: Osmani Schmidt Attending physician on admission: Osmani Schmidt Condition: Terminal
[2019-12-05] MEDS: NEOMYCIN/POLYMYXIN/BACITRACIN OINTMENT PACKET 1 PACKET (16:12)
--- NOTE | 2019-12-05 18:32 | PC.NURSE ---
ambulance to be here at 1630. TLC d/c'd at 1615 after morphine given. Serge called at 1700 for ETA and was told another 45 minutes. At 1800, new ETA to be 1930. Dr. Schmidt notified and new orders received for SL ativan and Morphine SQ.
[2019-12-05] MEDS: MORPHINE SULFATE 4 MG/ML INJ 2 MG SUB-Q (18:52)
[2019-12-05] MEDS: LORAZEPAM 1 MG TABLET PO (18:52)
[2019-12-05 20:01] VITALS: BP 136/87; PULSE 80; RESP 16; TEMP 36.9; O2SAT 95
== END 2019-12-05 21:15 | disposition hospice, inpatient (51) | DRG 91 ==
LOC: ANH3MEDSUR 18:30 → ANHICU 18:30
PROVIDERS: Admitting Provider Internal Medicine; Visit Provider Internal Medicine
DX: G93.1 Anoxic brain damage, not elsewhere classified (principal); I46.9 Cardiac arrest, cause unspecified; I42.9 Cardiomyopathy, unspecified; J93.9 Pneumothorax, unspecified; Z51.5 Encounter for palliative care; E78.5 Hyperlipidemia, unspecified; I10 Essential (primary) hypertension; R56.9 Unspecified convulsions; F17.210 Nicotine dependence, cigarettes, uncomplicated; Z85.830 Personal history of malignant neoplasm of bone; Z89.611 Acquired absence of right leg above knee
CPT/HCPCS: A9270; J1953; J2060; J2270